=== PATIENT | female | born 1945 | race Caucasian/White ===

== ENCOUNTER → 2017-08-19 10:26 | Outpatient (CLI) | payer MEDICARE, OTHER, SELFPAY ==
--- NOTE | 2017-08-19 10:28 | STE_ITS ---
Reason For Study: Chest Pain Stress Results Protocol: Modified Gavin Protocol Maximum Predicted HR: 151 bpm Target HR: 128 bpm% Maximum Pred icted HR: 91 % DurationHeart Rate Stage (mm:ss) (bpm) BPCom ment Baseline 67 112/78 No Chest Pain Modified Gavin Protocol Stage 0 3:00 10 8 136/76No Chest Pain; Mild Dyspnea Modified Gavin Protocol Stage 1/2 3:00 11 2 164/70No Chest Pain; Mild Dyspnea Modified Gavin Protocol Stage 1 3:00 12 6 174/76No Chest Pain; Mild to Moderate Dyspnea Modified Gavin Protocol Stage 2 1:30 13 7 / No Chest Pain; Moderate Dyspnea Recovery 95 118/70 Stress Duration: 10:30 mm:ss Maximum Stress HR: 137 bpmME TS: 7 Baseline Echocardiogram Findings The estimated ejection fraction is 65 %. Stress Echo Wall motion Data Resting WMIntermediate WMStress WM Resting Wall Motion Wall Motion Stress No regional wall motion No regional wall motion abnormalities noted. abnormalities noted. EKG Data Normal intervals are noted. During stress, there were no ST or T wave changes noted to suggest ischemia. No clinical angina was noted. The patient exercised into stage 2 of the Gavin protocol. This was 92% of maximum predicted heart rate. Interpretation Summary The estimated ejection fraction is 65 %. Normal adequate modified Gavin treadmill echocardiogram. Negative for ischemia by EKG and echocardiographic criteria. No anginal symptoms noted. Rare PVC noted. Appropriate blood pressure response to exercise. Average exercise capacity for age. Final LVEF is 75%. Patient tolerated procedure well. No complications. Ordering Physician: Abel Kelley Referring Physician: Abel Kelley Performed By: Sherrie Nevarez RDCS
== END ==
PROVIDERS: Family Provider Internal Medicine; PCP Internal Medicine; Visit Provider Internal Medicine Cardiovascular Disease
DX: I25.10 Atherosclerotic heart disease of native coronary artery without angina pectoris (principal); R06.09 Other forms of dyspnea; I10 Essential (primary) hypertension; R53.83 Other fatigue
CPT/HCPCS: 93017; 93350

== ENCOUNTER → 2017-08-22 13:08 | Outpatient (CLI) | payer MEDICARE, OTHER, SELFPAY ==
--- NOTE | 2017-08-22 13:20 | RAD_ITS ---
STUDY: BARIUM ENEMA. REASON FOR EXAM: Female, 71 years old. Incomplete colonoscopy. FLUOROSCOPY TIME (if supplied): (1:00) minutes/seconds TECHNIQUE: A computer forensics analyst film was obtained. Following this, contrast was introduced retrograde through the rectum. The entire colon was opacified. COMPARISON: None. FINDINGS: Moderate to marked dextroscoliosis of the lumbar spine with multilevel disc space narrowing and degeneration. Phleboliths are seen in the pelvis. There is evidence of prior tubal ligation. Contrast was introduced retrograde through the rectum. The entire colon was opacified. There is evidence of a redundant sigmoid colon. There is no evidence of obstruction to the antegrade or retrograde flow of barium. No mass lesion is seen. RAD/Barium Enema No Air Cont IMPRESSION: Redundancy of the sigmoid colon. Electronically Signed: David Rausch MD at 14:42 EDT Tel [phone], Service support ,
== END ==
PROVIDERS: Family Provider Internal Medicine; PCP Internal Medicine; Visit Provider Internal Medicine Gastroenterology
DX: Q43.8 Other specified congenital malformations of intestine (principal)
CPT/HCPCS: 74270

== ENCOUNTER 2017-10-03 13:59 | Emergency (ER) | payer MEDICARE, OTHER, SELFPAY ==
[2017-10-03 13:59] VITALS: BP 142/99; PULSE 96; RESP 17; TEMP 37.1; O2SAT 97; BMI 27.5
--- NOTE | 2017-10-03 14:16 | ED.VISSUMM ---
- ER Visit Summary Date of Service: 10/03/17 Chief Complaint: Right flank pain History of Present Illness: The patient is a 71 F who has had pain in the right flank area for the past couple of days. Patient denies any injuries. She denies any dysuria or frequency. No hematuria. She took nothing for it at home. She denies any fevers. She says she has a history of bladder cancer 8 years ago but has no current issues. She states she has slight microscopic hematuria at times. Physical Examination: Vital signs reviewed. HEENT exam unremarkable. Heart is regular rate and rhythm without murmurs. Lungs are clear to auscultation. Abdomen is soft and nontender. Extremities reveal no edema. Skin exam normal. Neurologic exam normal. Test Results: Urinalysis negative for infection Emergency Department Course and Treatment: [] Treatment Plan: Patient has no signs of infection. This could be muscular. She will use Tylenol, ice and heat and will follow up with her PCP Disposition: Discharge Impression: Right flank pain This note was generated with [employer] dictation software. It may contain incorrect words, spelling, and punctuation that were not noted in review of the chart prior to signing ED Disposition - Plan for ED Patient: Chief Complaint: Flank Pain Referrals: Carrie Vincent MD [Primary Care Provider] -
[2017-10-03 14:35] LABS: Bacteria 0 SEEN /hpf (None Seen); Mucous, Urine 0 SEEN /hpf (<or=2+); Red Blood Cells-Urine 0 SEEN /hpf (0-5); Squamous Epithelial Cells - UA 0 SEEN /hpf (5-10); White Blood Cells 0 SEEN /hpf (0-5)
[2017-10-03 14:37] LABS: Color, Urine Straw (Yellow); Glucose, Dipstick Normal (Normal); Ketone-Dipstick Negative (Negative); Leukocyte Esterase-Dipstick Negative /ul (Negative); Nitrite-Dipstick Negative (Negative); Occult Blood-Urine 10 /ul (Negative); Protein-Dipstick Negative (Negative); Urine Bilirubin Dipstick Negative (Negative); Urine Clarity Clear (Clear); Urine Urobilinogen Normal (Normal)
--- NOTE | 2017-10-03 15:02 | ED.DEP ---
ED Disposition - Plan for ED Patient: Disposition: Home or Assisted Living Chief Complaint: Flank Pain Instructions: ED Flank Pain Uncertain Cause Referrals: Carrie Vincent MD [Primary Care Provider] -
[2017-10-03 15:16] VITALS: BP 116/70; PULSE 85; RESP 15; O2SAT 99
== END 2017-10-03 15:32 | disposition home or self-care (01) ==
PROVIDERS: Emergency Provider Emergency Medicine; Family Provider Internal Medicine; PCP Internal Medicine
DX: R10.9 Unspecified abdominal pain (principal); I25.10 Atherosclerotic heart disease of native coronary artery without angina pectoris; E78.00 Pure hypercholesterolemia, unspecified; Z85.51 Personal history of malignant neoplasm of bladder; Z79.82 Long term (current) use of aspirin; Z79.899 Other long term (current) drug therapy
CPT/HCPCS: 81001; 99282

== ENCOUNTER 2018-02-23 15:28 | Emergency (ER) | payer MEDICARE, OTHER, SELFPAY ==
[2018-02-03 13:20] VITALS: BMI 27.1
[2018-02-23 15:30] VITALS: BP 126/88; PULSE 84; RESP 15; TEMP 36.8; O2SAT 98; BMI 27.3
[2018-02-23 17:26] VITALS: BP 131/81; PULSE 79; RESP 12; O2SAT 98
[2018-02-23 17:27] LABS: Bacteria 0 SEEN /hpf (None Seen); Mucous, Urine 0 SEEN /hpf (<or=2+); Red Blood Cells-Urine 0 SEEN /hpf (0-5); Squamous Epithelial Cells - UA 0 SEEN /hpf (5-10)
[2018-02-23 17:38] LABS: Color, Urine Yellow (Yellow); Glucose, Dipstick Normal (Normal); Ketone-Dipstick Negative (Negative); Leukocyte Esterase-Dipstick Negative /ul (Negative); Nitrite-Dipstick Negative (Negative); Occult Blood-Urine 10 /ul (Negative); Protein-Dipstick Negative (Negative); Specific Gravity, Urine 1.015 (1.002-1.030); Urine Bilirubin Dipstick Negative (Negative); Urine Clarity Clear (Clear); Urine Urobilinogen Normal (Normal)
[2018-02-23 18:26] LABS: White Blood Cells 0-5 SEEN /hpf (0-5)
--- NOTE | 2018-02-23 19:02 | CT_ITS ---
STUDY: CT ABDOMEN AND PELVIS WITHOUT CONTRAST REASON FOR EXAM: Female, 72 years old. Left flank pain RADIATION DOSAGE (If Supplied By Facility): CTDIvol = ( 8.26 ) mGy, DLP = ( 398.50 ) mGycm TECHNIQUE: Transaxial images were obtained from the dome of the diaphragm to the symphysis pubis without oral contrast, and without intravenous contrast. Sagittal and coronal images were reconstructed. Individualized dose optimization techniques were used for this CT. COMPARISON: 2008 FINDINGS: There are chronic interstitial fibrotic changes of the lung bases. The visualized portions of the heart are within normal limits. Normal liver. Normal gallbladder and extrahepatic biliary system. Normal spleen. Normal pancreas. Normal bilateral adrenal glands. Normal right kidney. Normal left kidney. Normal visualized stomach. Normal small intestine. Retained stool noted throughout the colon. The appendix is visualized and appears normal. Appendix best seen on coronal recon images 57 and 58. There is diffuse atherosclerotic calcification of the abdominal aorta, without a demonstrated aneurysm. Normal inferior vena cava. Normal retroperitoneum. Normal urinary bladder. There is absence of the uterus consistent with a prior hysterectomy. Normal abdominal wall. There are diffuse degenerative changes of the visualized lumbar spine, with a dextroscoliosis, and grade 1 spondylolisthesis at L5/S1. CT/Abdomen/Pelvis without Cont IMPRESSION: No suspicious solid organ abnormality. Specifically, no obstructive uropathy noted. No CT evidence of an acute inflammatory process, normal appendix visualized Retained stool throughout the colon Degenerative bony changes Electronically Signed: Donaldo Frankel MD at 19:40 EST , Service support ,
[2018-02-23 19:25] VITALS: BP 132/57; PULSE 61; RESP 18; TEMP 36.4; O2SAT 95
--- NOTE | 2018-02-23 19:51 | ED.VISSUMM ---
- ER Visit Summary Date of Service: 02/23/18 Chief Complaint: Left flank suki History of Present Illness: The patient is a 72 F who states that for the past week she is felt like she has been punched in the left flank and notes is very sore. Particularly sensitive to touch and with deep breathing. No known trauma. History of degenerative disc disease was hypertension high cholesterol. No leg swelling or history of DVT PE. Physical Examination: Afebrile vital signs are stable Gen: Well-nourished well-developed Head: Normocephalic atraumatic Eyes: Perrl EOMI ENT: TMs clear no rhinorrhea moist mucous membranes Neck: Supple no lymphadenopathy no JVD nontender CVS: Regular rate rhythm no murmurs normal S1-S2 Respiratory: No distress clear to auscultation bilaterally there is focal tenderness along the lower 10th and 11th rib the mid axillary line on the left. No rashes in the area Abdomen: Soft nontender nondistended normal bowel sounds no masses Back: Nontender Extremity: Nontender no edema Skin: Normal color no rash Neuro: alert orientated ?3 CN II-XII intact normal strength sensation reflexes gait cerebellar Psych: Normal affect normal mood Test Results: Analysis negative. CT the flank was negative Emergency Department Course and Treatment: Patient has reproducible pain along the rib is most likely muscular skeletal in nature we will treated as such. Return if worsening or concerns Impression: 1. Left lower rib pain This note was generated with [employer] dictation software. It may contain incorrect words, spelling, and punctuation that were not noted in review of the chart prior to signing ED Disposition - Plan for ED Patient: Disposition: Home or Assisted Living Chief Complaint: Flank Pain Instructions: ED Chest Pain Atypical Unkn Cause Referrals: Crarie Vincent MD [Primary Care Provider] - As Needed
== END 2018-02-23 20:02 | disposition home or self-care (01) ==
PROVIDERS: Emergency Provider Emergency Medicine; Family Provider Internal Medicine; PCP Internal Medicine
DX: R07.81 Pleurodynia (principal); I10 Essential (primary) hypertension; E78.00 Pure hypercholesterolemia, unspecified; Z87.891 Personal history of nicotine dependence; Z79.82 Long term (current) use of aspirin; Z79.899 Other long term (current) drug therapy
CPT/HCPCS: 74176; 81001; 99282

== ENCOUNTER → 2018-04-28 17:03 | Outpatient (CLI) | payer MEDICARE, OTHER, SELFPAY ==
--- NOTE | 2018-04-28 | CYSPIN_PTH ---
PATIENT: NU ARREDONDO LOC: [facility] U#:[id number] AGE/SX: 79/F ROOM: RE04/28/[address]: Dr. Vikash Workman MD : 1945 BED: DIS: SPEC #: [id number] RECD: 04/28/18 15:45 STATUS: SONU REPraveena #: [id number] RYAN: 04/28/18 00:[address]: Vikash Workman DEPT: CYTOLOGY RECD BY: Santy Logan ENTERED: 04/29/18 12:34 SP TYPE: CYSPIN FL OTHR DR: Dr. Carrie Vincent MD Tissues: Urine Procedures: Pap Stain (control) Special Stain Group II Cytospin Fluid HEADER OPERATION: Not noted PRE-OP DIAGNOSIS: Hematuria TISSUE SUBMITTED: Urine for cytology DIAGNOSIS CYTOLOGY Urine for cytology (cytospin): Negative for malignant cells. See comment. AM:fely 04/30/18 COMMENT The specimen primarily consists of squamous epithelial cells. Clinical correlation is suggested. Case has been reviewed in consultation with Dr. Sutherland who concurs with the above diagnosis. IDC:SJ CYTOLOGY STUDY Slides are reviewed. CYTOLOGY GROSS Received is 60 ml of clear yellow fluid labeled with the patient's name and and designated per the requisition as urine. Submitted for cytology preparation. 04/29/18 TC:5 CPT: 24515
[2018-04-28 17:06] LABS: Cytology, Body Fluid / CSF SEE PATHOLOGY REPORT
== END ==
PROVIDERS: Family Provider Internal Medicine; PCP Internal Medicine; Referring Provider Urology; Visit Provider Urology
DX: R31.9 Hematuria, unspecified (principal)
CPT/HCPCS: 88108; 88313

== ENCOUNTER → 2018-08-19 | Outpatient (CLI) | payer MEDICARE, OTHER, SELFPAY ==
[2018-08-04 13:10] VITALS: BMI 27.1
--- NOTE | 2018-08-19 12:15 | STEWCON_ITS ---
Reason For Study: CAD, HTN Stress Results Protocol: Modified Gavin Protocol Maximum Predicted HR: 150 bpm Target HR: 128 bpm % Maximum Predicted HR: 84 % DurationHeart Rate Stage (mm:ss) (bpm) BP Comment Baseline 71 118/84No Chest Pain; Diluted Definity 3 ML Given Modified Gavin Protocol Stage 0 3:00 99 136/72No Chest Pain Modified Gavin Protocol Stage 1/2 3:00 110 140/68No Chest Pain Modified Gavin Protocol Stage 1 3:00 112 152/64No Chest Pain Modified Gavin Protocol Stage 2 3:00 126 164/70No Chest Pain; Mild Dyspnea; Fatigue Recovery 75 124/78No Chest Pain Stress Duration: 12:00 mm:ss Maximum Stress HR: 126 bpm METS: 7 Baseline Echocardiogram Findings The estimated ejection fraction is 65 %. Stress Echo Wall motion Data Resting WM Intermediate WM Stress WM Resting Wall Motion Wall Motion Stress No regional wall motion No regional wall motion abnormalities noted. abnormalities noted. EKG Data The baseline ECG displays normal sinus rhythm. Interpretation Summary The estimated ejection fraction is 65 %. Normal, adequate, modified Gavin treadmill echocardiogram. Negative for ischemia by EKG and echocardiographic anterior. No anginal symptoms noted. Average exercise capacity for age. No arrhythmias noted. Appropriate blood pressure response exercise. Decreased sensitivity due to poor echo windows requiring Definity agent. No complications. Test terminated due to fatigue. The study was technically difficult. Contrast injection was performed. Ordering Physician: Abel Kelley Referring Physician: Carrie Vincent Performed By: Zina Colon, OMAR, RVT
== END | disposition home or self-care (01) ==
LOC: CVS 12:14
PROVIDERS: Family Provider Internal Medicine; PCP Internal Medicine; Referring Provider Internal Medicine Cardiovascular Disease; Visit Provider Internal Medicine Cardiovascular Disease
DX: R06.09 Other forms of dyspnea (principal); I25.10 Atherosclerotic heart disease of native coronary artery without angina pectoris; I10 Essential (primary) hypertension; E78.5 Hyperlipidemia, unspecified
CPT/HCPCS: 93017; 93350; Q9957; A4216; C8928

== ENCOUNTER → 2018-08-26 | Outpatient (CLI) | payer MEDICARE, OTHER, SELFPAY ==
[2018-08-04 13:10] VITALS: BMI 27.1
--- NOTE | 2018-08-26 12:32 | ECHOCS_ITS ---
Reason For Study: Dyspnea/SOB Procedure This was a 2D Doppler, Color Flow transthoracic echocardiogram. The study was technically difficult. Contrast injection was performed. Exam performed in department. Left Ventricle Normal size and thickness. The estimated ejection fraction is 65 %. Stage 1 diastolic dysfunction. The global longitudinal strain = -22 % (normal). No regional wall motion abnormalities noted. Right Ventricle Normal size and thickness. Normal systolic function. Atria Normal left atrium. Normal right atrium. Normal atrial septum. Mitral Valve The mitral valve is structurally normal. No prolapse or stenosis seen. Trivial mitral valve insufficiency. Tricuspid Valve Normal tricuspid valve. Unable to estimate RV systolic pressure due to insufficient tricuspid regurgitant envelope. Aortic Valve Normal aortic valve. Trisinus/trileaflet aortic valve. Pulmonic Valve Normal pulmonic valve. Great Vessels Normal aortic root. Normal arch. Normal inferior vena cava. Inferior vena cava collapse with sniff. Pericardium/Pleural No pericardial effusion. Medication 22 gauge I.V. with prn adaptor inserted into right arm. Diluted definity 2ml given slow IV push to enhance endocardial definition. MMode/2D Measurements & Calculations LVIDd: 3.3 cm IVSd: 1.4 cm Ao root diam: 4.0 cm LVIDs: 2.2 cm LVPWd: 1.1 cm FS: 34.1 % LAV(MOD-bp): 32.6 ml LA A4 area: 12.6 cm2 RA A4 area: 10.0 cm2 LAV(MOD-bp) Indexed: 19.2 ml/m2 LAV(MOD-sp2): 33.0 ml LAV(MOD-sp4): 29.9 ml Time Measurements MV dec time: 0.42 sec Doppler Measurements & Calculations MV E max shayan: 57.7 cm/sec Lat Peak E' Shayan: 2.6 cm/sec Med Peak E' Shayan: 4.0 cm/sec MV A max shayan: 103.5 cm/sec E/E' lat: 21.8 E/E' med: 14.4 MV E/A: 0.56 MV V2 max: 126.2 cm/sec MV P1/2t max shayan: 82.8 cm/sec Ao V2 max: 111.1 cm/sec MV max P.4 mmHg MV P1/2t: 108.3 msec Ao max P.9 mmHg MV V2 mean: 55.1 cm/sec MV dec slope: 224.0 cm/sec2 Ao V2 mean: 76.1 cm/sec MV mean P.5 mmHg Ao mean P.6 mmHg MV V2 VTI: 34.5 cm MVA(P1/2t): 2.0 cm2 Ao V2 VTI: 24.8 cm LV V1 max: 101.9 cm/sec MR max shayan: 515.9 cm/sec PA V2 max: 87.6 cm/sec LV V1 max P.2 mmHg MR max P.5 mmHg LV V1 mean P.0 mmHg LV V1 mean: 64.9 cm/sec LV V1 VTI: 21.2 cm Interpretation Summary The estimated ejection fraction is 65 %. Stage 1 diastolic dysfunction. The global longitudinal strain = -22 % (normal). Trivial mitral valve insufficiency. Unable to estimate RV systolic pressure due to insufficient tricuspid regurgitant envelope. Compared to echo report dated 05/19/2014, no appreciable changes noted. The study was technically difficult. Contrast injection was performed. Ordering Physician: Abel Kelley Referring Physician: Abel Kelley Performed By: Rachid Ramirez RCS
== END | disposition home or self-care (01) ==
LOC: CVS 12:32
PROVIDERS: Family Provider Internal Medicine; PCP Internal Medicine; Referring Provider Internal Medicine Cardiovascular Disease; Visit Provider Internal Medicine Cardiovascular Disease
DX: R06.09 Other forms of dyspnea (principal); I25.10 Atherosclerotic heart disease of native coronary artery without angina pectoris; I10 Essential (primary) hypertension
CPT/HCPCS: 93306; Q9957; A4216; C8929

== ENCOUNTER → 2019-06-21 | Outpatient (CLI) | payer MEDICARE, OTHER, SELFPAY ==
[2019-02-08 14:45] VITALS: BMI 26.5
--- NOTE | 2019-06-21 | CYSPIN_PTH ---
PATIENT: NU ARREDONDO LOC: [facility] U#:[id number] AGE/SX: 73/F ROOM: RE06/21/[address]: Dr. Vikash Workman MD : 1945 BED: DIS: 06/21/2019 SPEC #: [id number] RECD: 06/22/19 10:02 STATUS: SONU REPraveena #: [id number] RYAN: 06/21/19 00:[address]: Vikash Workman DEPT: CYTOLOGY RECD BY: Mert Han ENTERED: 06/22/19 10:03 SP TYPE: CYSPIN FL OTHR DR: Dr. Carrie Vincent MD Tissues: Urine Procedures: Pap Stain (control) Special Stain Group II Cytospin Fluid HEADER OPERATION: Not noted PRE-OP DIAGNOSIS: Malignant neoplasm of lateral wall of bladder C67.2 TISSUE SUBMITTED: Urine for cytology DIAGNOSIS CYTOLOGY Urine for cytology (cytospin): Mildly atypical urothelial cells noted. See comment. SJ:fely 06/23/19 COMMENT Correlation with clinical findings and appropriate follow up are necessary. 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 Case has been reviewed in consultation with Dr. Ramirez who concurs with the above diagnosis. IDC:AM CYTOLOGY STUDY Slides are reviewed. CYTOLOGY GROSS Received is 35 ml of yellow hazy fluid labeled with the patient's name and and designated per the requisition as urine. Submitted for cytology preparation. / fely 06/22/19 TC:5 CPT: 07895
[2019-06-21 17:27] LABS: Cytology, Body Fluid / CSF SEE PATHOLOGY REPORT
== END | disposition home or self-care (01) ==
LOC: LABSPEC 16:51
PROVIDERS: PCP Internal Medicine; Referring Provider Urology; Visit Provider Urology
DX: C67.2 Malignant neoplasm of lateral wall of bladder (principal)
CPT/HCPCS: 88108; 88313

== ENCOUNTER → 2019-06-24 | Outpatient (CLI) | payer MEDICARE, OTHER, SELFPAY ==
[2019-06-24 11:57] VITALS: BMI 27.8
== END | disposition home or self-care (01) ==
PROVIDERS: PCP Internal Medicine; Referring Provider Urology; Visit Provider Urology
DX: C67.2 Malignant neoplasm of lateral wall of bladder (principal)

== ENCOUNTER → 2019-07-19 | Outpatient (CLI) | payer MEDICARE, OTHER, SELFPAY ==
[2019-06-24 11:57] VITALS: BMI 27.8
--- NOTE | 2019-07-19 12:20 | STEWCON_ITS ---
Reason For Study: CHEST PAIN Stress Results Protocol: Gavin Protocol WITH DEFINITY Maximum Predicted HR: 149 bpm Target HR: 127 bpm % Maximum Predicted HR: 85 % DurationHeart Rate Stage (mm:ss) (bpm) BP Comment BASELINE 80 132/80 STAGE 1 3:00 110 148/824CC GIVEN PER PROTOCOL STAGE 2 3:00 127 158/70 RECOVERY 89 142/84 Stress Duration: 6:00 mm:ss Maximum Stress HR: 127 bpm Baseline Echocardiogram Findings The estimated ejection fraction is 65 %. Stress Echo Wall motion Data Resting WM Intermediate WM Stress WM Resting Wall Motion Wall Motion Stress No regional wall motion No regional wall motion abnormalities noted. abnormalities noted. EKG Data The baseline ECG displays normal sinus rhythm. The patient exercised according to the regular Gavin protocol for a total duration of 6:01. The maximum heart rate attained was 136 beats per minute. This was 91% of maximum predicted heart rate. The patient exercised into stage 3 of the Gavin protocol. During stress, there were no ST or T wave changes noted to suggest ischemia. No clinical angina was noted. No arrhythmias noted. Interpretation Summary The estimated ejection fraction is 65 %. Normal, adequate, treadmill echocardiogram. Negative for ischemia by EKG and echocardiographic criteria. No anginal symptoms noted. No arrhythmias noted. Test terminated due to attainment target heart rate and dyspnea, no angina noted. Final LVEF is 75%. Decreased sensitivity due to poor echo windows requiring Definity agent. No complications. The study was technically difficult. Contrast injection was performed. Ordering Physician: Abel Kelley Referring Physician: Abel Kelley Performed By: Nicci Hoover RDCS, RVT
== END | disposition home or self-care (01) ==
LOC: CVS 12:20
PROVIDERS: PCP Internal Medicine; Referring Provider Internal Medicine Cardiovascular Disease; Visit Provider Internal Medicine Cardiovascular Disease
DX: R07.9 Chest pain, unspecified (principal); I25.10 Atherosclerotic heart disease of native coronary artery without angina pectoris; I10 Essential (primary) hypertension; E78.5 Hyperlipidemia, unspecified
CPT/HCPCS: 93017; 93350; Q9957; A4216; C8928

== ENCOUNTER → 2019-09-14 | Outpatient (CLI) | payer MEDICARE, OTHER, SELFPAY ==
[2019-06-24 11:57] VITALS: BMI 27.8
--- NOTE | 2019-09-14 | CYSPIN_PTH ---
PATIENT: NU ARREDONDO LOC: [facility] U#:[id number] AGE/SX: 73/F ROOM: RE09/14/[address]: Dr. Vikash Workman MD : 1945 BED: DIS: 09/14/2019 SPEC #: [id number] RECD: 09/15/19 12:02 STATUS: SONU IDALIA #: [id number] RYAN: 09/14/19 00:[address]: Vikash Workman DEPT: CYTOLOGY RECD BY: Mert Han ENTERED: 09/15/19 12:02 SP TYPE: CYSPIN FL OTHR DR: Dr. Carrie Vincent MD Tissues: Urine Procedures: Pap Stain (control) Special Stain Group II Cytospin Fluid HEADER OPERATION: Not noted PRE-OP DIAGNOSIS: Malignant neoplasm of bladder TISSUE SUBMITTED: Urine for cytology DIAGNOSIS CYTOLOGY Urine for cytology (cytospin): Negative for malignant cells. See comment. SJ:fely 09/16/19 COMMENT Clinical correlation and appropriate follow up are necessary. Please make reference to previous specimen ([id number]) urine for cytology with diagnosis of mildly atypical urothelial cells noted. CYTOLOGY STUDY Slides are reviewed. CYTOLOGY GROSS Received is 50 ml of yellow cloudy fluid labeled with the patient's name and and designated per the requisition as urine. Submitted for cytology preparation. / fely 09/15/19 TC:5 CPT: 76852
[2019-09-14 13:27] LABS: Cytology, Body Fluid / CSF SEE PATHOLOGY REPORT
== END | disposition home or self-care (01) ==
LOC: LAB 13:25
PROVIDERS: PCP Internal Medicine; Referring Provider Urology; Visit Provider Urology
DX: C67.2 Malignant neoplasm of lateral wall of bladder (principal)
CPT/HCPCS: 88108; 88313

== ENCOUNTER → 2020-01-31 12:44 | Outpatient (CLI) | payer MEDICARE, OTHER, SELFPAY ==
[2020-01-24 12:57] VITALS: BMI 27.8
--- NOTE | 2020-01-31 12:45 | CDU_ITS ---
Reason For Study: Right carotid bruit Rt. Velocities/BP Lt. Velocities/BP Prox CCA 95.6/17.3 cm/sec. Prox CCA 104.7/22.5 cm/sec. Mid CCA 76/18.6 cm/sec. Mid CCA 117.4/24.3 cm/sec. Dist CCA 63/17.3 cm/sec. Dist CCA 70.4/16.3 cm/sec. Prox ICA 65.6/14.7 cm/sec. Prox ICA 88.8/22.5 cm/sec. Mid ICA 66.9/23.9 cm/sec. Mid ICA 79/23.7 cm/sec. Dist ICA 101/42.6 cm/sec. Dist ICA 101.1/22.5 cm/sec. Rt. ICA/CCA = 1.3. Lt. ICA/CCA = 1.0. Prox ECA 102.1/9.5 cm/sec. Prox ECA 91.3/11.4 cm/sec. Rt. Vert. 53.1/14.6 cm/sec. Lt. Vert. 35.1/7.3 cm/sec. Right Extracranial There is homogeneous, smooth atherosclerotic plaque noted in the right common carotid artery. There is heterogeneous, irregular atherosclerotic plaque noted in the right internal carotid artery. There is intimal thickening but no significant atherosclerotic plaque noted in the right external carotid artery. Antegrade flow is noted in the right vertebral artery. Structure noted in the right thyroid measuring approximently 1.36 x 1.15 x 1.73 cm. Left Extracranial There is homogeneous, smooth atherosclerotic plaque noted in the left common carotid artery. There is heterogeneous, irregular atherosclerotic plaque noted in the left internal carotid artery. There is intimal thickening but no significant atherosclerotic plaque noted in the left external carotid artery. Antegrade flow is noted in the left vertebral artery. Procedure Carotid Duplex 48306. This is a Carotid Duplex examination using B-mode, color flow and specral Doppler. Exam performed in department. Interpretation Summary Irregular calcific plaque of the proximal right internal carotid artery with less than 50% stenosis Less than 50% stenosis right external carotid Solid cystic right thyroid nodule 1.36 x 1.15 x 1.73 cm Irregular calcific plaque at the proximal left internal carotid with less than 50% stenosis Less than 50% stenosis left external carotid Patent and antegrade vertebrals bilaterally Ordering Physician: Lois Cloud Referring Physician: Carrie Vincent M.D. Performed By: Jojo Pearce RVT
== END ==
PROVIDERS: PCP Internal Medicine; Referring Provider Physician Assistant Medical; Visit Provider Physician Assistant Medical
DX: R09.89 Other specified symptoms and signs involving the circulatory and respiratory systems (principal)
CPT/HCPCS: 93880

== ENCOUNTER → 2020-03-10 | Outpatient (CLI) | payer MEDICARE, OTHER, SELFPAY ==
[2020-01-24 12:57] VITALS: BMI 27.8
--- NOTE | 2020-03-10 14:40 | FLU_PTH ---
PATIENT: UN ARREDONDO LOC: [facility] U#:[id number] AGE/SX: 74/F ROOM: RE03/10/[address]: Dr. Kamila Navarro MD : 1945 BED: DIS: 03/10/2020 SPEC #: [id number] RECD: 03/10/20 16:53 STATUS: SONU REQ #: [id number] RYAN: 03/10/20 14:[address]: Kamila Navarro DEPT: CYTOLOGY RECD BY: Unique Mahoney ENTERED: 03/13/20 09:58 SP TYPE: Fluid OTHR DR: Dr. Carrie Vincent MD Tissues: A - Thyroid gland, NOS B - Thyroid gland, NOS Procedures: Special Stain Group II Surgery Specimen Level IV Cytospin Fluid HEADER OPERATION: Ultrasound-guided fine needle aspiration of right thyroid PRE-OP DIAGNOSIS: Thyroid nodules TISSUE SUBMITTED: A - Right thyroid fluid for cytology, B - Right thyroid slides x8 DIAGNOSIS CYTOLOGY A. Fine needle aspiration, right thyroid nodule (cytospin and cell block): Adequate for evaluation. Negative, consistent with benign follicular nodule with cystic change. B. Fine needle aspiration, right thyroid nodule (smears): Adequate for evaluation. Negative, consistent with benign follicular/colloid nodule with cystic change. AM:fely 03/14/2020 CYTOLOGY STUDY Slides are reviewed. CYTOLOGY GROSS A - Received is 30 ml of dark brown cloudy fluid labeled with the patient's name and and designated per the requisition as right thyroid. Submitted for cytology preparation including cell block. B - Received are eight smears labeled with the patient's name and designated per the requisition as right thyroid. Submitted for staining. / fely 03/13/2020 TC:5 CPT: 28102, 35750, 66339
== END | disposition home or self-care (01) ==
LOC: LABSPEC 03-13 08:29
PROVIDERS: PCP Internal Medicine; Referring Provider Surgery; Visit Provider Surgery
DX: E04.2 Nontoxic multinodular goiter (principal)
CPT/HCPCS: 88108; 88305; 88313

== ENCOUNTER → 2020-07-10 | Outpatient (CLI) | payer MEDICARE, OTHER, SELFPAY ==
[2020-07-03 14:50] VITALS: BMI 27.8
--- NOTE | 2020-07-10 14:22 | CYSPIN_PTH ---
PATIENT: NU ARREDONDO LOC: [facility] U#:[id number] AGE/SX: 74/F ROOM: RE07/10/[address]: Dr. Vikash Workman MD : 1945 BED: DIS: 07/10/2020 SPEC #: [id number] RECD: 07/11/20 08:16 STATUS: SONU REPraveena #: [id number] RYAN: 07/10/20 14:[address]: Vikash Workman DEPT: CYTOLOGY RECD BY: Unique Mahoney ENTERED: 07/11/20 08:17 SP TYPE: CYSPIN FL OTHR DR: Dr. Carrie Vincent MD Tissues: Urine Procedures: Pap Stain (control) Special Stain Group II Cytospin Fluid HEADER OPERATION: Not noted PRE-OP DIAGNOSIS: Malignant neoplasm of bladder TISSUE SUBMITTED: Urine for cytology DIAGNOSIS CYTOLOGY Urine for cytology (cytospin): Negative for malignant cells. See comment. AM:fely 07/12/2020 COMMENT The specimen primarily contains squamous epithelial cells. Clinical correlation is suggested. CYTOLOGY STUDY Slides are reviewed. CYTOLOGY GROSS Received is 40 ml of dark yellow clear fluid labeled with the patient's name and and designated per the requisition as urine. Submitted for cytology preparation. / fely 07/11/2020 TC:5 CPT: 73074
[2020-07-10 17:35] LABS: Cytology, Body Fluid / CSF SEE PATHOLOGY REPORT
== END | disposition home or self-care (01) ==
LOC: LABSPEC 17:04
PROVIDERS: PCP Internal Medicine; Referring Provider Urology; Visit Provider Urology
DX: C67.9 Malignant neoplasm of bladder, unspecified (principal)
CPT/HCPCS: 88108; 88313

== ENCOUNTER 2021-06-12 12:51 | Emergency (ER) | payer MEDICARE, OTHER, SELFPAY ==
[2021-06-12 12:53] VITALS: BP 148/96; PULSE 90; RESP 18; TEMP 36.7; O2SAT 96; BMI 26.7
[2021-06-12 12:58] VITALS: BP 140/93; PULSE 80; RESP 14; TEMP 37.3; O2SAT 96
--- NOTE | 2021-06-12 13:08 | CT_ITS ---
STUDY: CT ABDOMEN AND PELVIS WITH CONTRAST REASON FOR EXAM: Female, 75 years old. abdominal pain LLQ RADIATION DOSAGE (If Supplied By Facility): CTDIvol = ( 15.22 ) mGy, DLP = ( 801.22 ) mGycm TECHNIQUE: Transaxial images were obtained from the dome of the diaphragm to the symphysis pubis without oral contrast. IV 100mL Isovue-300 was administered. Sagittal and coronal images were reconstructed. Individualized dose optimization techniques were used for this CT. COMPARISON: 02/23/2018 FINDINGS: The visualized lung bases are unremarkable. The visualized portions of the heart are within normal limits. Simple subcentimeter cysts of the liver. No required imaging follow-up needed given high likelihood of benign nature. Normal gallbladder and extrahepatic biliary system. Normal spleen. Normal pancreas. Normal bilateral adrenal glands. Normal right kidney. Normal left kidney. Normal visualized stomach. Normal small intestine. Long segment wall thickening of the splenic flexure, descending colon, sigmoid colon and rectum with pericolonic stranding most conspicuous in the descending colon segments. No pericolonic abscess. There is non-visualization of the appendix. There is diffuse atherosclerotic calcification of the abdominal aorta, without a demonstrated aneurysm. Normal inferior vena cava. Normal retroperitoneum. Normal urinary bladder. Normal abdominal wall. There are diffuse degenerative changes of the visualized lumbar spine. Grade 1 spondylolisthesis L5-S1 due to bilateral L5 spondylolysis. CT/Abdomen/Pelvis W IV Cont ONLY IMPRESSION: Long segment (left) colon wall thickening with pericolonic stranding suggesting colitis including infectious, inflammatory and ischemic causes. Electronically Signed: Geovani Guerra MD ([place]) at 14:53 EDT ,
--- NOTE | 2021-06-12 13:10 | EDS_ITS ---
HPI HPI - GI History of Present Illness Chief Complaint: Abd Pain Narrative Narrative: Patient who denies significant past medical history except for remote bladder carcinoma presents with rectal bleeding and left lower quadrant abdominal pain. She states last evening she had the feelings that she had to have a bowel movement. She was mildly constipated. She had left lower quadrant abdominal pain. She denies any fevers or chills. No nausea or vomiting. She had 4-5 bowel movements yesterday evening then lay down. This morning at 130, she got up to use the restroom, and thought maybe she had orange-colored stool. Her left lower quadrant abdominal pain has improved. She does not take blood thinners. She became concerned because she had a bowel movement earlier this morning where it was more liquid stool with pink mucus. She relates history that she has a lot of hemorrhoids and thought maybe the blood was from this, she presents more for the rectal bleeding that is reported. She denies any chest pain or lightheadedness, or shortness of breath. She relates history that she had colonoscopy performed proximately [address] Duggan, and he was unable to perform the last 6 inches of visualization of her colon. However, since then she has had problems having bowel movements. [facility] Medical History Atherosclerosis of coronary artery of [place] heart without angina pectoris Bladder cancer Carotid arterial disease Carotid artery bruit Carotid artery stenosis without cerebral infarction Chest pain DDD (degenerative disc disease), lumbar GERD (gastroesophageal reflux disease) Hyperlipidemia Hypertension IBS (irritable bowel syndrome) Home Medications acetaminophen-codeine 1 tab PO PRN PRN 05/24/14 [History Last Taken Unknown] aspirin 81 mg PO DAILY@0800 05/24/14 [History Last Taken 05/25/14] hydrochlorothiazide 12.5 mg PO DAILY 05/24/14 [History Last Taken Unknown] oxybutynin chloride 5 mg PO PRN PRN 05/24/14 [History Last Taken Unknown] esomeprazole magnesium 20 mg capsule,delayed release 20 mg PO DAILY 02/03/18 [History Last Taken Unknown] simvastatin 40 mg tablet 40 mg PO QPM #90 tab 06/30/18 [Rx Last Taken Unknown] vit C,E,zinc,copper-unjtw2s 250 mg-lutein 5 mg-zeaxanthin 1 mg capsule 1 cap PO DAILY 08/04/18 [History Last Taken Unknown] amlodipine 5 mg tablet 5 mg PO QHS #90 tab 07/03/20 [Rx Last Taken Unknown] glucosamine-chondroitin 250 mg-200 mg tablet 1 tab PO DAILY tab 07/03/20 [History Last Taken Unknown] imipramine HCl 25 mg tablet 25 mg PO PRN PRN tab 07/03/20 [History Last Taken Unknown] ciprofloxacin HCl [Cipro] 500 mg PO BID #20 tab 06/12/21 [Rx Last Taken Unknown] metronidazole 500 mg PO BID 10 Days #20 tab 06/12/21 [Rx Last Taken Unknown] Allergy/AdvReac Type Severity Reaction Status Date / Time morphine Allergy Unknown Verified 06/12/21 12:55 Family History Father CAD (coronary artery disease) CABG Mother Cancer of kidney Cancer of lung Surgical History H/O arthroscopic knee surgery History of left heart catheterization (05/25/14) History of partial hysterectomy Status post excision of Rojas's neuroma Social History Smoking Status: Former smoker ROS ROS ED ROS Narrative Constitutional: No fever, no chills. HEENT: No sore throat. No neck pain. No loss of vision. No rhinorrhea. Cardiovascular: No chest pain. No palpitations. No pedal edema. Respiratory: No cough, no shortness of breath. Abdominal: Left lower quadrant abdominal pain. No nausea. No vomiting. [place]- colored mucousy diarrhea. Genitourinary: No dysuria. No hematuria. Musculoskeletal: No myalgias. No arthralgias. Neurologic: No headaches. No dizziness. No lightheadedness. Skin: No rash. No change in color. Psychiatric: No depression. No anxiety. EXAM Physical Exam Narrative Exam Narrative: Afebrile. Vital signs noted. HEENT: Normocephalic. Atraumatic. PERRL, EOMI. Neck soft and supple. No point tenderness or step off. Cardiovascular: Regular rate and rhythm. No murmurs, rubs, or gallops appreciated. Respiratory: No tachypnea. Lungs clear to auscultation bilaterally. Gastrointestinal: Abdomen soft, nontender, with normoactive bowel sounds. No rebound or guarding. Neurological: Awake. Alert. Nonfocal, nonlateralizing. Skin: No rash. Normal color. No pallor. Musculoskeletal: No pedal edema. Full range of motion extremities. Const Vital Signs: 06/12/21 12:53 06/12/21 12:58 06/12/21 14:45 Temperature 98.1 F 99.1 F 98.2 F Temperature Source Temporal Temporal Temporal Pulse Rate 90 80 76 Respiratory Rate 18 14 20 H Blood Pressure 148/96 H 140/93 H 160/77 H Blood Pressure Mean 113 108 104 Pulse Ox 96 96 99 Oxygen Delivery Method Room Air Room Air Room Air 06/12/21 14:52 Temperature 98.2 F Temperature Source Temporal Pulse Rate 76 Respiratory Rate 20 H Blood Pressure 160/77 H Blood Pressure Mean 104 Pulse Ox 99 Oxygen Delivery Method Room Air MDM MDM MDM Narrative Medical decision making narrative: Patient states she does not take blood thinners. She states that in order for rectal examination to be performed that she needs something for anxiety. She will be administered Ativan 0.5 mg intravenously. Comprehensive work-up was pursued including CBC, CMP, and CT imaging of her abdomen and pelvis. Her CBC shows normal white count of 10.3, hemoglobin normal at 12.7. Platelet count also normal at 285. CMP is grossly unremarkable. CT of the abdomen and pelvis shows long segment left colonic wall thickening with pericolonic stranding suggesting colitis including infectious, inflammatory and ischemic causes. At this point in time, upon repeat examination, her abdomen remains soft. I did perform a rectal examination that was chaperoned which did show a small amount of bright red blood with normal colored stool. I do think this may be from an internal hemorrhoid versus a stable rectal bleed from her colitis. She was given her first doses of Flagyl and ciprofloxacin here in the emergency department and prescriptions written for the next 10 days. She is to follow-up with either her primary care physician or with gastroenterology to whom she was referred in the next 3 days. Return instructions were reviewed. As she does not have a fever high white count, and her abdomen remains soft and her pain is controlled without medication, I feel she can be discharged safely. I do not feel that she meets any observation or admission criteria at this time. Return instructions were reviewed. Disposition is discharged home in stable condition. Lab Data Attestation: I reviewed the patient's lab results. Labs: Laboratory Results - last 24 hr 06/12/21 06/12/21 13:40 13:40 WBC 10.3 RBC 3.78 L Hgb 12.7 Hct 36.5 L MCV 96.6 MCH 33.6 H MCHC 34.8 RDW Std Deviation 46.3 H RDW Coeff of Marilyn 13.1 Plt Count 285 MPV 11.9 Immature Gran % (Auto) 1.000 H Neut % (Auto) 71.5 H Lymph % (Auto) 19.3 [place] % (Auto) 6.6 Eos % (Auto) 1.0 Baso % (Auto) 0.6 Absolute Neuts (auto) 7.4 Absolute Lymphs (auto) 1.99 Nucleated RBC % 0 Sodium 139 Potassium 3.8 Chloride 105 Carbon Dioxide 29.0 Anion Gap 5 BUN 15 Creatinine 0.90 Estim Creat Clear Calc 46.05 Est GFR (MDRD) Af Amer 79 Est GFR (MDRD) Non-Af 65 BUN/Creatinine Ratio 16.6 Glucose 97 Calcium 9.1 Total Bilirubin 0.70 AST 15 ALT 14 Alkaline Phosphatase 101 Total Protein 7.1 Albumin 3.9 Globulin 3.2 Albumin/Globulin Ratio 1.2 Radiography Diagnostic Testing: Clinical Impression(s) from Imaging Studies Abdomen/Pelvis CT 06/12/21 13:08 IMPRESSION: Long segment (left) colon wall thickening with pericolonic stranding suggesting colitis including infectious, inflammatory and ischemic causes. Electronically Signed: Geovani Guerra MD (Brooks) at 14:53 EDT Reading Location ID and State: [facility] / [place] , Service support , Discharge Plan Triage Chief Complaint: Abd Pain ED Provider: Jasiel Deshpande Dx/Rx/DC Orders Clinical Impression: Colitis, Rectal bleeding, Abdominal pain Instructions: ED Understanding Colitis, ED Lower GI Bleeding (Stable) Prescriptions: New ciprofloxacin HCl [Cipro] 500 mg tablet 500 mg PO BID Qty: 20 RF: 0 metronidazole 500 mg tablet 500 mg PO BID 10 Days Qty: 20 RF: 0 No Action esomeprazole magnesium [Nexium] 20 mg capsule,delayed release(DR/EC) 20 mg PO DAILY RF: 0 Ocuvite Adult 50 Plus 250-5-1 mg capsule 1 cap PO DAILY RF: 0 imipramine HCl 25 mg tablet 25 mg PO PRN PRN (Reason: Abdominal Discomfort) RF: 0 glucosamine-chondroitin [Osteo Bi-Flex] 250-200 mg tablet 1 tab PO DAILY RF: 0 amlodipine 5 mg tablet 5 mg PO QHS Qty: 90 RF: 4 hydrochlorothiazide 12.5 MG capsule 12.5 mg PO DAILY RF: 0 oxybutynin chloride 5 MG tablet 5 mg PO PRN PRN (Reason: Bladder Spasm) RF: 0 aspirin 81 MG tablet,chewable 81 mg PO DAILY@0800 RF: 0 acetaminophen-codeine 1 TABLET tablet 1 tab PO PRN PRN (Reason: Cough) RF: 0 simvastatin 40 mg tablet 40 mg PO QPM Qty: 90 RF: 3 Primary Care Provider: Carrie Vincent Referrals: Carrie Vincent MD [Primary Care Provider] - 06/15/21 FriendJose G DO [STAFF PHYSICIAN] - 3-5 Days Activity Restrictions/Additional Instructions: You have been diagnosed with colitis. Take the antibiotics as directed. Do not drink alcohol while taking Flagyl/metronidazole. You will get sick and vomit. Your rectal bleeding is stable. Return with new or worsening symptoms, fever, uncontrolled pain. Disposition Disposition: Home, Self Care
[2021-06-12 13:48] LABS: Absolute Lymphocyte Count 1.99 X10^3/uL (0.83-4.51); Absolute Neutrophil Count 7.4 X10^3/uL (2.0-7.7); Basophil# 0.06 X10^3/uL; Basophil% 0.6 % (0-1); Hematocrit 36.5 % (37-47); Hemoglobin 12.7 g/dL (12.0-15.0); Lymphocyte # 1.99 X10^3/ul (0.83-4.51); Lymphocyte % 19.3 % (19-41); Mean Corp Hgb Conc 34.8 g/dL (32-36); Mean Corpuscular Hgb 33.6 pg (27.0-32.0); Mean Corpuscular Volume 96.6 fL (81-99); Mean Platelet Vol. 11.9 fl (6.2-12.0); Monocyte# 0.68 X10^3/uL; Monocyte% 6.6 % (0-10); NRBC Flagged by Analyzer 0 % (0-5); Neutrophil # 7.38 X10^3/uL (2.7-7.7); Neutrophil % 71.5 % (47-70); Platelet Count 285 K/mm3 (150-450); RBC Distribution Width CV 13.1 % (11.6-14.6); RBC Distribution Width SD 46.3 fl (35.1-43.9); Red Blood Count 3.78 M/mm3 (4.2-5.4); White Blood Count 10.3 K/mm3 (4.4-11.0)
[2021-06-12 14:08] LABS: ALB/GLOB Ratio 1.2 RATIO (0.9-2.4); AST(SGOT) 15 U/L (15-37); Alanine Aminotransfer ALT/SGPT 14 U/L (13-56); Albumin, Serum 3.9 g/dL (3.2-5.0); Alkaline Phosphatase 101 U/L (45-117); Anion Gap 5 (5-15); BUN 15 mg/dL (7-18); BUN/Creat Ratio 16.6 RATIO (10-20); Calcium,Total 9.1 mg/dL (8.5-10.1); Chloride 105 mmol/L (98-107); EST Glomerular Filtration Rate 65 mL/min (>60); Est Glom Filt Rate - Afr Amer 79 mL/min (>60); Estimated Creatinine Clearance 46.05 ml/min; Globulin 3.2 g/dL (2.2-4.2); Glucose 97 mg/dL (74-106); Potassium 3.8 mmol/L (3.5-5.1); Protein, Total 7.1 g/dL (6.4-8.2); Sodium Level 139 mmol/L (136-145)
[2021-06-12] MEDS: LORazepam 2 MG/ML Syringe 0.5 MG IV (14:17)
[2021-06-12] MEDS: 0.9% Normal Saline 1,000 ML 1000 ML IV (14:18)
[2021-06-12 14:45] VITALS: BP 160/77; PULSE 76; RESP 20; TEMP 36.8; O2SAT 99
[2021-06-12 14:52] VITALS: BP 160/77; PULSE 76; RESP 20; TEMP 36.8; O2SAT 99
[2021-06-12 15:11] VITALS: BP 161/87; PULSE 72; RESP 14; TEMP 36.9; O2SAT 97
[2021-06-12] MEDS: Ciprofloxacin 500 MG Tablet PO (15:26)
[2021-06-12] MEDS: metroNIDAZOLE 500 MG Tablet PO (15:27)
[2021-06-12 15:28] VITALS: BP 155/93; PULSE 76; O2SAT 97
--- NOTE | 2021-06-14 15:30 | CASEMGMT ---
Addendum entered by Rolo Roblero 06/14/21 16:04: VM received from pt, stating she called to schedule an appt but they do not have anything available until June 26. ELIZABETH CA placed call to Dr Vincent's office and spoke w/a nurse. She was updated on pt's ED visit and that she was advised to be seen w/in 3 days. Nurse states an opening is now available @ 10:40 tomorrow AM w/Dr Vincent. Appt scheduled for pt at this time. Call placed back to pt and she was made aware of appt tomorrow. She states that appt time works well for her and she voices much appreciation. Original Note: ELIZABETH CA ED Visit f/u call: ED visit: 06/12/21 Complaint: Abdominal pain Call to pt. She states she is still feeling a little weak, she is still having a little bit of blood and mucous rectally, and still some abd cramping, although that has improved some. 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 She called Dr Bates office but they do not have opening for 2 months. She scheduled the appt for in 2 months. She did not call PCP's office yet to schedule an appt. ELIZABETH CA recommended she contact PCP's office for an appt, as ED MD wanted her seen w/in 3 days. She states she will do so now. Leobardo HILL RN, CM
== END 2021-06-12 15:36 | disposition home or self-care (01) ==
PROVIDERS: Emergency Provider Emergency Medicine; PCP Internal Medicine; Visit Provider Emergency Medicine
DX: K52.9 Noninfective gastroenteritis and colitis, unspecified (principal); K62.5 Hemorrhage of anus and rectum; Z87.891 Personal history of nicotine dependence; I25.10 Atherosclerotic heart disease of native coronary artery without angina pectoris; I10 Essential (primary) hypertension; E78.5 Hyperlipidemia, unspecified; Z79.899 Other long term (current) drug therapy; Z79.82 Long term (current) use of aspirin; K58.9 Irritable bowel syndrome, unspecified
CPT/HCPCS: 74177; 80053; 82274; 85025; 99284; J7030; Q9967; A4216

== ENCOUNTER → 2021-07-30 | Outpatient (CLI) | payer MEDICARE, OTHER, SELFPAY ==
[2021-07-30 10:49] LABS: Erythrocyte Sedimentation Rate 10 mm/hr (0-30)
[2021-07-30 10:53] LABS: Absolute Lymphocyte Count 2.16 X10^3/uL (0.83-4.51); Absolute Neutrophil Count 1.9 X10^3/uL (2.0-7.7); Basophil# 0.04 X10^3/uL; Basophil% 0.9 % (0-1); Eosinophil# 0.13 X10^3/uL; Eosinophils% 2.8 % (0-5); Hematocrit 35.3 % (37-47); Lymphocyte # 2.16 X10^3/ul (0.83-4.51); Lymphocyte % 46.5 % (19-41); Mean Corpuscular Hgb 33.7 pg (27.0-32.0); Mean Corpuscular Volume 99.2 fL (81-99); Mean Platelet Vol. 11.4 fl (6.2-12.0); Monocyte# 0.39 X10^3/uL; Monocyte% 8.4 % (0-10); NRBC Flagged by Analyzer 0 % (0-5); Neutrophil % 40.8 % (47-70); Platelet Count 267 K/mm3 (150-450); RBC Distribution Width CV 13.9 % (11.6-14.6); RBC Distribution Width SD 50.1 fl (35.1-43.9); Red Blood Count 3.56 M/mm3 (4.2-5.4); White Blood Count 4.7 K/mm3 (4.4-11.0)
[2021-07-30 11:29] LABS: ALB/GLOB Ratio 1.1 RATIO (0.9-2.4); AST(SGOT) 17 U/L (15-37); Alanine Aminotransfer ALT/SGPT 10 U/L (13-56); Alkaline Phosphatase 85 U/L (45-117); Anion Gap 5 (5-15); BUN 13 mg/dL (7-18); BUN/Creat Ratio 15.5 RATIO (10-20); CRP < 2.90 mg/L (0.0-3.0); Calcium,Total 8.9 mg/dL (8.5-10.1); Chloride 106 mmol/L (98-107); Creatinine, Serum 0.84 mg/dL (0.55-1.02); EST Glomerular Filtration Rate 71 mL/min (>60); Est Glom Filt Rate - Afr Amer 86 mL/min (>60); Globulin 3.5 g/dL (2.2-4.2); Glucose 98 mg/dL (74-106); Potassium 3.5 mmol/L (3.5-5.1); Protein, Total 7.5 g/dL (6.4-8.2); Sodium Level 139 mmol/L (136-145)
[2021-07-31 12:08] LABS: Anti-Centromere B Ab <0.2 AI (0.0-0.9); Anti-Chromatin <0.2 AI (0.0-0.9); Anti-Jo <0.2 AI (0.0-0.9); Anti-Scleroderma-70 AB <0.2 AI (0.0-0.9); RNP Ab <0.2 AI (0.0-0.9); SJOGREN'S Anti-SS-A test < 0.2 AI (0.0-0.9); SJOGREN'S Anti-SS-B test < 0.2 AI (0.0-0.9); Smith Ab <0.2 AI (0.0-0.9)
[2021-07-31 15:55] LABS: Anti-dsDNA Ab <1 IU/mL (0-9)
[2021-07-31 16:08] LABS: Endomysial Antibody IgA Negative (Negative)
[2021-08-02 17:36] LABS: Immunoglobulin A 149 mg/dL (64-422); t-Transglutaminase IgA <2 U/mL (0-3)
== END | disposition home or self-care (01) ==
LOC: LAB 09:56
PROVIDERS: PCP Internal Medicine; Visit Provider Nurse Practitioner Adult Health
DX: K52.9 Noninfective gastroenteritis and colitis, unspecified (principal); K58.9 Irritable bowel syndrome, unspecified
CPT/HCPCS: 36415; 80053; 82784; 83516; 85025; 85652; 86140; 86225; 86235; 86255

== ENCOUNTER → 2021-08-03 | Outpatient (CLI) | payer MEDICARE, OTHER, SELFPAY ==
[2021-08-08 12:08] LABS: Calprotectin, Stool 20 ug/g (0-120)
== END | disposition home or self-care (01) ==
PROVIDERS: PCP Internal Medicine; Referring Provider Nurse Practitioner Adult Health; Visit Provider Nurse Practitioner Adult Health
DX: K58.9 Irritable bowel syndrome, unspecified (principal)
CPT/HCPCS: 83630; 83993

== ENCOUNTER → 2021-08-13 | Outpatient (CLI) | payer MEDICARE, OTHER, SELFPAY ==
--- NOTE | 2021-08-13 | CYSPIN_PTH ---
PATIENT: NU ARREDONDO LOC: [facility] U#:[id number] AGE/SX: 75/F ROOM: RE08/13/[address]: Dr. Vikash Workman MD : 1945 BED: DIS: 08/13/2021 SPEC #: [id number] RECD: 08/13/21 15:00 STATUS: SONU REPraveena #: [id number] RYAN: 08/13/21 00:[address]: Vikash Workman DEPT: CYTOLOGY RECD BY: Ned Jaime ENTERED: 08/14/21 07:04 SP TYPE: CYSPIN FL OTHR DR: Dr. Carrie Vincent MD Tissues: Urine Procedures: Pap Stain (control) Special Stain Group II Cytospin Fluid HEADER OPERATION: Not noted PRE-OP DIAGNOSIS: Malignant neoplasm of bladder TISSUE SUBMITTED: Urine for cytology DIAGNOSIS CYTOLOGY Urine for cytology (cytospin): Negative for malignant cells. Paucicellular specimen. See comment. SJ:fely 08/14/2021 COMMENT The specimen predominantly consists of squamous epithelial cells. Clinical correlation and appropriate follow up are necessary. CYTOLOGY STUDY Slides are reviewed. CYTOLOGY GROSS Received is 5 ml of hazy yellow fluid labeled with the patient's name and and designated per the requisition as urine. Submitted for cytology preparation. / fely 08/14/2021 TC:4 CPT: 50698
[2021-08-13 16:46] LABS: Cytology, Body Fluid / CSF SEE PATHOLOGY REPORT
== END | disposition home or self-care (01) ==
LOC: LABSPEC 16:35
PROVIDERS: PCP Internal Medicine; Visit Provider Urology
DX: Z85.51 Personal history of malignant neoplasm of bladder (principal)
CPT/HCPCS: 88108; 88313

== ENCOUNTER 2021-11-13 12:48 | Day surgery (SDC) | payer MEDICARE, OTHER, SELFPAY ==
[2021-11-13] VITALS (7 sets, daily range): BP systolic 109–138; BP diastolic 68–89; PULSE 47–76; RESP 14–16; TEMP 36.2–36.9; O2SAT 99–100; BMI 26.9
--- NOTE | 2021-11-13 | IMM_PTH ---
PATIENT: NU ARREDONDO LOC: EN U#:[id number] AGE/SX: 76/F ROOM: RE11/13/[address]: Dr. Jose G Wilson DO : 1945 BED: DIS: 11/13/2021 SPEC #: [id number] RECD: 11/15/21 12:38 STATUS: SONU REQ #: [id number] RYAN: 11/13/21 00:[address]: Jose G Wilson DEPT: IMMUNOHISTOCHEMISTRY RECD BY: Ewa Becker ENTERED: 11/15/21 12:40 SP TYPE: IMMUNO OTHR DR: Dr. Carrie Vincent MD Tissues: A - Esophagus, NOS Procedures: P53 (initial) KI-67 (add) PHYSICIAN & INSTITUTION [place] [phone] SPECIMEN INFORMATION: Tissue Source: A ? Distal esophagus biopsy Clinical Info: Nonspecific colitis, GERD Specimen Number: [id number] CPT code: 25957, 92053 METHODOLOGY: Deparaffinized sections of prefer/formalin-fixed tissue or PAP/DQ stained slides are incubated with monoclonal/polyclonal antibodies/oligonucleotide probes. Localization is made via biotin free immunoperoxidase method. Appropriate controls are performed and reacted as expected. Results on target cell population are indicated in the following table: RESULTS: ANTIBODY / CLONE RESULT Block A P53 (DO-7) negative Ki-67 (30-9) negative These tests were developed and their performance characteristics determined by [facility]. They may not have been cleared or approved by the U.S. Food and Drug Administration. The FDA has determined that such clearance or approval is not necessary. The above immunohistochemical/dualISH markers are ordered and reviewed by the Pathologist. INTERPRETATION: A. Distal esophagus, biopsy: No evidence of dysplasia. AM:fely 11/16/2021
--- NOTE | 2021-11-13 13:36 | HP.PCM_ITS ---
History and Physical Date of Admission: 11/13/21 HPI Details: NU ARREDONDO, is a 75 F who presents to the office today for f/u ED visit 06/12/21 for rectal bleeding and LLQ pain. She had been constipated, which is common for her.? Then she felt like she might have a stomach bug, had multiple BMs 1 day, then noted pink mucous.? The left lower quadrant mild pain had resolved by the time she presented to the ED.? She was diagnosed with colitis; CT with IV contrast showed long segment left colon wall thickening with pericolonic stranding suggesting colitis including infectious, inflammatory and ischemic causes.? She was treated with ciprofloxacin and metronidazole.? She has not had any rectal bleeding since that time.? She did have mild left lower quadrant discomfort yesterday, however no other abdominal pain since the ED visit.? No prior history of colitis that she recalls. She does tend to have constipation.? She drinks a small amount of prune juice every 2-3 days for constipation which helps.? She often has pebble-like stools.? She has BM every other day typically.? No melena or hematochezia. She takes Nexium 20 mg daily for heartburn. She drinks alcohol on the weekends, was having heartburn then, changed to beer which causes less heartburn.? She denies nausea, vomiting, hematemesis.? No history of esophagitis or Rodgers's esophagus.? She might have had an EGD many years ago. 06/12/21 CT/Abdomen/Pelvis W IV Cont ONLY IMPRESSION: Long segment (left) colon wall thickening with pericolonic stranding suggesting colitis including infectious, inflammatory and ischemic causes. ? 05/2017 Barium Enema No Air Cont IMPRESSION: Redundancy of the sigmoid colon. Past medical history includes bladder cancer, coronary artery disease, degenerative disc disease, hyperlipidemia, hypertension, IBS Past surgery includes arthroscopic knee surgery, heart cath, hysterectomy ROS Const Constitutional: No fatigue ENT ENT: No difficulty swallowing Gastro GI: Positive for abdominal pain, change in bowel habits, constipation, diarrhea, heartburn and Blood in stool; No belching, bloating, change in stool character, coffee ground emesis, cramping, difficulty swallowing, feeling full early, excessive flatus, incontinent of stools, Vomiting blood/hematemesis, loose stools, Black,tarry stools, nausea/dyspepsia, pain with swallowing, vomiting or other Musc Musculoskeletal: No joint pain Skin Skin: No yellowing of the eye or itchy eyes Psych Psychiatric: No anxiety and No depression Endo Endocrine: No fatigue Aller/Imm Allergy/Immunologic: No itchy eyes Juan/Lymp Hematologic/Lymphatic: No easy bleeding or easy bruising Exam Const General: cooperative, comfortable, well developed and well groomed Eyes General: appearance normal, both eyes and all related structures Resp Effort & Inspection: normal respiratory effort GI Inspection: normal to inspection Palpation: soft, no hepatosplenomegaly, no masses and nontender Neuro Speech: speech normal Gait: normal gait Psych Mood: euthymic mood Affect: normal affect Quality Reporting Tobacco Screening ([facility] 138) Smoking Status: Former smoker Assessment and Plan Assessment and Plan (1) Non-specific colitis: (2) Colitis: ?Status:?Acute (3) GERD (gastroesophageal reflux disease): ?Status:?Chronic ? ? ? Orders:?Orders: ? Comprehensive Metabolic Profil Today K52.9, K52.9 ? ? CRP Today K52.9, K52.9 ? ? CBC W/Diff, Automated Today K52.9, K52.9 ? ? Erythrocyte Sed Rate Today K52.9, K52.9 ? ? BABS Comprehensive Panel TodayB K52.9, K52.9 ? ? Calprotectin, Stool Today K52.9, K52.9 ? ? Stool Lactoferrin/WBC Today K52.9, K52.9 ? ? Celiac Disease Profile Today K52.9, K52.9 ?Plan - Niyah Null NP, [employer]-C: 75-year-old female with history of colitis in May 2021.? No further rectal bleeding since then.? 1 episode of mild left lower quadrant discomfort.? She does have chronic constipation.? We will get labs today including inflammatory markers.? We will do stool tests for inflammation also.? Differential diagnosis includes infectious colitis, inflammatory bowel disease, microscopic colitis.? We will get her scheduled for upper and lower endoscopy.? With follow-up 2 weeks after that with Dr. Wilson to discuss results and biopsy reports.? Continue Nexium 20 mg daily for heartburn, will evaluate her for Rodgers's on EGD.? Discussed management of constipation, try daily MiraLAX with the prune juice.? Could add a small amount of mineral oil or castor oil to help with lubrication considering the pebble-like stools. I have re-examined the patient. There are no clinical changes since date of exam.
[2021-11-13] MEDS: Lactated Ringers 1,000 ML 15 ML IV (13:39)
--- NOTE | 2021-11-13 14:00 | COLBX_PTH ---
PATIENT: NU ARREDONDO LOC: EN U#:[id number] AGE/SX: 76/F ROOM: RE11/13/[address]: Dr. Jose G Wilson DO : 1945 BED: DIS: 11/13/2021 SPEC #: [id number] RECD: 11/13/21 15:39 STATUS: SONU REPraveena #: [id number] RYAN: 11/13/21 14:[address]: Jose G Wilson DEPT: SURGICAL PATHOLOGY RECD BY: Ned Jaime ENTERED: 11/14/21 08:04 SP TYPE: COLON BX OTHR DR: Dr. Carrie Vincent MD Tissues: A - Esophagus, NOS B - Ascending colon C - Cecum, NOS D - Cecum, NOS E - Cecum, NOS F - Rectum, NOS Procedures: Surgery Specimen Level IV HEADER OPERATION: [place] [place], snare PRE-OP DIAGNOSIS: Nonspecific colitis, GERD TISSUE SUBMITTED: A ? Distal esophagus biopsy, B ? Ascending colon polyp, C ? Cecal polyp, D ? Ileocecal valve mass, E - Ileocecal valve biopsy, F ? Rectal polyp MICROSCOPIC DIAGNOSIS A. Distal esophagus, biopsy: Gastroesophageal junctional mucosa with mild chronic inflammation. Focal goblet cell metaplasia. No evidence of dysplasia. See comment. B. Ascending colon polyp, biopsy: Fragments of tubular adenoma. C. Cecal polyp, biopsy: Tubular adenoma. D. Ileocecal valve mass, biopsy: Fragments of tubulovillous adenoma. E. Ileocecal valve, biopsy: No pathologic change. F. Rectal polyp, biopsy: Fragments of tubular adenoma. AM:fely 11/15/2021 COMMENT A. Alcian blue/PAS stain with matched control supports the above diagnosis. Focus of goblet cell metaplasia is noted in this slide. Immunohistochemistry ([id number]) for P53 and Ki-67 will be performed and results will be reported separately. Case has been reviewed in consultation with Dr. Sutherland who concurs with the above diagnosis. IDC:SJ MICROSCOPIC DESCRIPTION Slides are reviewed. GROSS DESCRIPTION A - Received in fixative is one container labeled with the patient's name and designated distal esophagus biopsy. The specimen consists of multiple irregular fragments of light woods soft tissue that in aggregate measure 1 x 0.3 x 0.1 cm. The specimen is totally submitted in one cassette. B - Received in fixative is one container labeled with the patient's name and designated ascending colon polyp. The specimen consists of multiple irregular fragments of light woods soft tissue that in aggregate measure 1 x 0.2 x 0.1 cm. The specimen is totally submitted in one cassette. C - Received in fixative is one container labeled with the patient's name and designated cecal polyp. The specimen consists of a piece of woods-pink polyp measuring 0.5 x 0.3 x 0.2 cm. The specimen is totally submitted in one cassette. D - Received in fixative is one container labeled with the patient's name and designated ileocecal valve mass. The specimen consists of multiple irregular fragments of light woods soft tissue that in aggregate measure 3 x 2.5 x 0.4 cm. The specimen is totally submitted in one cassette. E - Received in fixative is one container labeled with the patient's name and designated ileocecal valve biopsy. The specimen consists of one irregular fragment of light woods soft tissue that measures 0.3 x 0.3 x 0.1 cm. The specimen is totally submitted in one cassette. F - Received in fixative is one container labeled with the patient's name and designated rectal polyp. The specimen consists of multiple irregular fragments of light woods soft tissue that in aggregate measure 1 x 0.5 x 0.1 cm. The specimen is totally submitted in one cassette. / SJ:rg 11/14/2021 TC:3 CPT: 23565 x6, 66370
--- NOTE | 2021-11-13 15:10 | OP.EGD_ITS ---
Patient Name: Maryuri Martinez Procedure Date: 11/13/2021 1:57 PM Date of : 1945 Age: 76 Procedure: Upper GI endoscopy Indications: Epigastric abdominal pain, Suspected esophageal reflux Providers: Jose G Wilson DO Referring MD: Jose G Wilson DO Medicines: Monitored Anesthesia Care Patient Profile: This is a 76 year old female. Refer to note in patient chart for documentation of history and physical. Patient has symptoms of chronic right lower quadrant abdominal pain and acute epigastric abdominal pain. Complications: No immediate complications. Procedure: Pre-Anesthesia Assessment: - Prior to the procedure, a History and Physical was performed, and patient medications and allergies were reviewed. The risks and benefits of the procedure and the sedation options and risks were discussed with the patient. All questions were answered and informed consent was obtained. Patient identification and proposed procedure were verified by the physician in the pre-procedure area. Mental Status Examination: alert and oriented. Airway Examination: normal oropharyngeal airway and neck mobility. Respiratory Examination: clear to auscultation. CV Examination: normal. Prophylactic Antibiotics: The patient does not require prophylactic antibiotics. Prior Anticoagulants: The patient has taken no previous anticoagulant or antiplatelet agents. ASA Grade Assessment: II - A patient with mild systemic disease. After reviewing the risks and benefits, the patient was deemed in satisfactory condition to undergo the procedure. The anesthesia plan was to use monitored anesthesia care (MAC). Immediately prior to administration of medications, the patient was re-assessed for adequacy to receive sedatives. The heart rate, respiratory rate, oxygen saturations, blood pressure, adequacy of pulmonary ventilation, and response to care were monitored throughout the procedure. The physical status of the patient was re-assessed after the procedure. After obtaining informed consent, the endoscope was passed under direct vision. Throughout the procedure, the patient's blood pressure, pulse, and oxygen saturations were monitored continuously. The colonoscope was introduced through the mouth, and advanced to the second part of duodenum. The upper GI endoscopy was accomplished without difficulty. The patient tolerated the procedure well. Scope In: 2:11:40 PM Scope Out: 2:15:07 PM Total Procedure Duration Time 0 hours 3 minutes 27 seconds Findings: The Z-line was irregular and was found 38 cm from the incisors. Biopsies were taken with a cold forceps for histology. Verification of patient identification for the specimen was done. Estimated blood loss was minimal. A medium-sized hiatal hernia was present. The exam was otherwise without abnormality. No gross lesions were noted in the first portion of the duodenum. Impression: - Z-line irregular, 38 cm from the incisors. Biopsied. - Medium-sized hiatal hernia. - The examination was otherwise normal. - No gross lesions in the first portion of the duodenum. Recommendation: - Discharge patient to home. - Resume previous diet. - Continue present medications. - Await pathology results. Procedure Code(s): --- Professional --- 72503, Esophagogastroduodenoscopy, flexible, transoral; with biopsy, single or multiple CPT copyright 2017 [employer]. All rights reserved. The codes documented in this report are preliminary and upon hosiery pairer review may be revised to meet current compliance requirements. Jose G Wilson DO 11/13/2021 3:09:43 PM This report has been signed electronically. Number of Addenda: 0 Note Initiated On: 11/13/2021 1:57 PM
--- NOTE | 2021-11-13 15:11 | OP.CCLET_ITS ---
11/13/2021 Carrie Vincent [address] [place] [address] Re : Upper GI endoscopy procedure for Maryuri Martinez Dear Dr. Vincent This procedure was performed on Saturday, November 13, 2021. My impressions and recommendations are as follows: Impressions : - Z-line irregular, 38 cm from the incisors. Biopsied. - Medium-sized hiatal hernia. - The examination was otherwise normal. - No gross lesions in the first portion of the duodenum. Recommendations : - Discharge patient to home. - Resume previous diet. - Continue present medications. - Await pathology results. My findings are described in the full procedure note, which is enclosed. If I can be of further assistance, please feel free to contact me at . Sincerely, Jose G Wilson, 11/13/2021 3:09:43 PM This report has been signed electronically.
--- NOTE | 2021-11-13 15:18 | OP.CCLET_ITS ---
11/13/2021 Carrie Vincent [address] [place] [address] Re : Colonoscopy procedure for Maryuri Martinez Dear Dr. Vincent This procedure was performed on Saturday, November 13, 2021. My impressions and recommendations are as follows: Impressions : - Three 2 to 3 mm polyps in the rectum, in the ascending colon and in the cecum, removed with a hot snare. Resected and retrieved. - One 20 mm polyp at the ileocecal valve, removed with a hot snare, removed using injection-lift and a hot snare and removed piecemeal using a hot snare. Incomplete resection. Resected tissue retrieved. Treated with argon plasma coagulation (APC). - Redundant colon. - Stricture at the ileocecal valve. Biopsied. Recommendations : - Discharge patient to home. - Full liquid diet today. - Continue present medications. - Await pathology results. - Repeat colonoscopy for surveillance based on pathology results. - Colace capsule(s) orally 100 mg BID for 3 days. My findings are described in the full procedure note, which is enclosed. If I can be of further assistance, please feel free to contact me at . Sincerely, Jose G Wilson, 11/13/2021 3:17:38 PM This report has been signed electronically.
--- NOTE | 2021-11-13 15:18 | OP.COLON_ITS ---
Patient Name: Maryuri Martinez Procedure Date: 11/13/2021 2:15 PM Date of : 1945 Age: 76 Procedure: Colonoscopy Indications: Screening for colorectal malignant neoplasm Providers: Jose G Wilson DO Referring MD: Jose G Wilson DO Medicines: Monitored Anesthesia Care Patient Profile: This is a 76 year old female. Refer to note in patient chart for documentation of history and physical. Patient has symptoms of chronic right lower quadrant abdominal pain and acute epigastric abdominal pain. Last Colonoscopy: 10 years ago. Complications: No immediate complications. Procedure: Pre-Anesthesia Assessment: - Prior to the procedure, a History and Physical was performed, and patient medications and allergies were reviewed. The risks and benefits of the procedure and the sedation options and risks were discussed with the patient. All questions were answered and informed consent was obtained. Patient identification and proposed procedure were verified by the physician in the pre-procedure area. Mental Status Examination: alert and oriented. Airway Examination: normal oropharyngeal airway and neck mobility. Respiratory Examination: clear to auscultation. CV Examination: normal. Prophylactic Antibiotics: The patient does not require prophylactic antibiotics. Prior Anticoagulants: The patient has taken no previous anticoagulant or antiplatelet agents. ASA Grade Assessment: II - A patient with mild systemic disease. After reviewing the risks and benefits, the patient was deemed in satisfactory condition to undergo the procedure. The anesthesia plan was to use monitored anesthesia care (MAC). Immediately prior to administration of medications, the patient was re-assessed for adequacy to receive sedatives. The heart rate, respiratory rate, oxygen saturations, blood pressure, adequacy of pulmonary ventilation, and response to care were monitored throughout the procedure. The physical status of the patient was re-assessed after the procedure. After I obtained informed consent, the scope was passed under direct vision. Throughout the procedure, the patient's blood pressure, pulse, and oxygen saturations were monitored continuously. The Colonoscope was introduced through the anus and advanced to the cecum, identified by appendiceal orifice and ileocecal valve. The colonoscopy was performed without difficulty. The patient tolerated the procedure well. The quality of the bowel preparation was good. Scope In: 2:17:28 PM Scope Withdrawal Time 0 hours 35 minutes 16 seconds Scope Out: 3:04:31 PM Total Procedure Duration Time 0 hours 47 minutes 3 seconds Findings: The perianal and digital rectal examinations were normal. Three sessile polyps were found in the rectum, ascending colon and cecum. The polyps were 2 to 3 mm in size. These polyps were removed with a hot snare. Resection and retrieval were complete. Verification of patient identification for the specimen was done. Estimated blood loss was minimal. A 20 mm polyp was found in the ileocecal valve. The polyp was sessile. The polyp was removed with a hot snare. The polyp was removed with a saline injection-lift technique using a hot snare. The polyp was removed with a piecemeal technique using a hot snare. Polyp resection was incomplete. The resected tissue was retrieved. Coagulation for tissue destruction using argon plasma at 0.3 liters/minute and 20 haynes was successful. Estimated blood loss was minimal. The sigmoid colon, splenic flexure and transverse colon were significantly redundant. A benign-appearing, intrinsic severe stenosis measuring 1 cm (in length) x 1 mm (inner diameter) was found at the ileocecal valve and was non-traversed. Biopsies were taken with a cold forceps for histology. Verification of patient identification for the specimen was done. Estimated blood loss was minimal. Impression: - Three 2 to 3 mm polyps in the rectum, in the ascending colon and in the cecum, removed with a hot snare. Resected and retrieved. - One 20 mm polyp at the ileocecal valve, removed with a hot snare, removed using injection-lift and a hot snare and removed piecemeal using a hot snare. Incomplete resection. Resected tissue retrieved. Treated with argon plasma coagulation (APC). - Redundant colon. - Stricture at the ileocecal valve. Biopsied. Recommendation: - Discharge patient to home. - Full liquid diet today. - Continue present medications. - Await pathology results. - Repeat colonoscopy for surveillance based on pathology results. - Colace capsule(s) orally 100 mg BID for 3 days. Procedure Code(s): --- Professional --- 60839, Colonoscopy, flexible; with ablation of tumor(s), polyp(s), or other lesion(s) (includes pre- and post-dilation and guide wire passage, when performed) 85237, 59, Colonoscopy, flexible; with removal of tumor(s), polyp(s), or other lesion(s) by snare technique 42047, Colonoscopy, flexible; with directed submucosal injection(s), any substance 24321, 59, Colonoscopy, flexible; with biopsy, single or multiple CPT copyright 2017 [employer]. All rights reserved. The codes documented in this report are preliminary and upon skiver operator review may be revised to meet current compliance requirements. Jose G Wilson DO 11/13/2021 3:17:38 PM This report has been signed electronically. Number of Addenda: 0 Note Initiated On: 11/13/2021 2:15 PM
== END 2021-11-13 15:58 | disposition home or self-care (01) ==
LOC: EN 12:49 → AC 12:51
PROVIDERS: PCP Internal Medicine; Referring Provider Internal Medicine; Visit Provider Internal Medicine Gastroenterology
PROC: 0DJD8ZZ Inspection of Lower Intestinal Tract, Via Natural or Artificial Opening Endoscopic (ICD-10-PCS; CPT 45378; principal; 2021-11-13 13:55)
DX: D12.2 Benign neoplasm of ascending colon (principal); K21.00 Gastro-esophageal reflux disease with esophagitis, without bleeding; D12.0 Benign neoplasm of cecum; D12.8 Benign neoplasm of rectum; K22.70 Barrett's esophagus without dysplasia; Z86.16 Personal history of COVID-19; E78.00 Pure hypercholesterolemia, unspecified; I10 Essential (primary) hypertension; Z85.51 Personal history of malignant neoplasm of bladder; Z79.82 Long term (current) use of aspirin; Z79.899 Other long term (current) drug therapy; I25.10 Atherosclerotic heart disease of native coronary artery without angina pectoris; K58.9 Irritable bowel syndrome, unspecified; Z78.0 Asymptomatic menopausal state; K44.9 Diaphragmatic hernia without obstruction or gangrene
CPT/HCPCS: 45380; 45385; 43239; 45381; 45388; 88305; 88341; 88342; J7120

== ENCOUNTER 2022-02-06 13:02 | Emergency (ER) | payer MEDICARE, OTHER, SELFPAY ==
[2022-02-06 13:03] VITALS: BP 153/99; PULSE 91; RESP 16; TEMP 36.5; O2SAT 98; BMI 28.0
--- NOTE | 2022-02-06 13:13 | EKG12_ITS ---
Test Reason : LEFT ARM PAIN Blood Pressure : / mmHG Vent. Rate : 084 BPM Atrial Rate : 084 BPM P-R Int : 164 ms QRS Dur : 074 ms QT Int : 358 ms P-R-T Axes : 028 -20 014 degrees QTc Int : 423 ms Normal sinus rhythm Normal ECG Confirmed by SHARI HEARN, BOONE ([id number]), slot editor DERRICK CORTES ([id number]) on 02/07/2022 8:28:42 AM Referred By: TL Confirmed By:BOONE MCCARTHY MD
--- NOTE | 2022-02-06 13:35 | RAD_ITS ---
STUDY: X-RAY - LEFT SHOULDER REASON FOR EXAM: Female, 76 years old. pain TECHNIQUE: 2 view(s) of the shoulder. COMPARISON: None. FINDINGS: There is moderate degenerative arthrosis of the glenohumeral articulation. There is degenerative arthrosis of the acromioclavicular joint without inferior osseous spur formation. Normal acromion. Normal humeral head and visualized proximal humerus. The soft tissue structures are unremarkable. Normal visualized pulmonary apex. RAD/Shoulder min 2 Views IMPRESSION: Moderate glenohumeral joint arthrosis. Electronically Signed: Franck Evans MD at 14:17 EST ,
--- NOTE | 2022-02-06 13:37 | EX.ED.UPPERE ---
HPI History of Present Illness Chief Complaint: Upper Extremity Injury Detail of Chief Complaint: Left shoulder pain Informant: patient Narrative Narrative: Patient presents with left shoulder pain x5 days. She denies any injury or trauma. Patient states normally she sleeps on her right side. Patient states the pain comes and goes and is a dull ache. She denies any chest pain or shortness of breath out of the ordinary with activity. Patient is concerned that this could be her heart because she had a heart cath 7 years ago and was told she had a small branch of one of her arteries that was completely occluded but had collateralization. Patient otherwise has no stents. Patient denies recent illness. She denies trauma to the shoulder. [facility] Medical History (Updated 02/06/22 @ 15:[address] Radha Marr, ) Alcohol use Arthritis Atherosclerosis of coronary artery of [place] heart without angina pectoris Back pain Blackout Bladder cancer Cancer Cardiology follow-up encounter Carotid arterial disease Carotid artery bruit Carotid artery stenosis without cerebral infarction Chest pain COVID-19 DDD (degenerative disc disease), lumbar Former smoker Gastric reflux GERD (gastroesophageal reflux disease) High cholesterol History of echocardiogram History of steroid therapy Hyperlipidemia Hypertension IBS (irritable bowel syndrome) Leg cramps Normal stress echocardiogram Post-menopausal Shortness of breath on exertion Wears glasses Home Medications acetaminophen 300 mg-codeine 30 mg tablet 0.5 tab PO PRN PRN Pain 05/24/14 [History Last Taken Unknown] aspirin 81 mg chewable tablet 81 mg PO DAILY@0800 05/24/14 [History Last Taken 05/25/14] hydrochlorothiazide 12.5 mg capsule 12.5 mg PO DAILY 05/24/14 [History Last Taken Unknown] oxybutynin chloride 5 mg tablet,extended release 24 hr 5 mg PO PRN PRN Bladder Spasm 05/24/14 [History Last Taken Unknown] esomeprazole magnesium 20 mg capsule,delayed release (Nexium) 20 mg PO DAILY 02/03/18 [History Last Taken Unknown] simvastatin 40 mg tablet 40 mg PO QPM #90 tabs 06/30/18 [Rx Last Taken Unknown] glucosamine-chondroitin 250 mg-200 mg tablet (Osteo Bi-Flex) 1 tab PO DAILY 07/03/20 [History Last Taken Unknown] imipramine HCl 25 mg tablet 25 mg PO PRN PRN Abdominal Discomfort 07/03/20 [History Last Taken Unknown] vitamin E mixed 400 unit capsule 400 unit PO .QOD 09/24/21 [History Last Taken Unknown] amlodipine 5 mg tablet 5 mg PO QHS #90 tabs 10/16/21 [Rx Last Taken Unknown] Allergy/AdvReac Type Severity Reaction Status Date / Time morphine Allergy Unknown Verified 02/06/22 13:03 Family History Father CAD (coronary artery disease) CABG Mother Cancer of kidney Cancer of lung Surgical History H/O arthroscopic knee surgery History of left heart catheterization (05/25/14) History of partial hysterectomy Hx of neck surgery Status post excision of Rojas's neuroma Social History Smoking Status: Former smoker ROS ROS ED Review of Systems ROS Unobtainable: other Constitutional Constitutional ED: Reports lethargy; Denies chills, fever(s), sweats or weight loss Eyes Eyes: Denies blurry vision, change in vision or diplopia ENT ENT ED: Denies rhinorrhea or sore throat Cardiovascular Cardiovascular: Denies chest pain, orthopnea or racing heartbeat Respiratory/Chest Respiratory/Chest: Denies cough, dyspnea, dyspnea on exertion, orthopnea or sputum Gastrointestinal Gastrointestinal: Denies abdominal pain, diarrhea, nausea or vomiting Genitourinary Genitourinary ED: Denies dysuria, hematuria or urinary frequency Musculoskeletal Musculoskeletal: Reports other Details: Left shoulder pain ; Denies arthralgias, back pain, myalgias or neck pain Integumentary Denies abscess, Abrasions or rash Neurologic Neurologic: Denies headache(s) or weakness Psychiatric Psychiatric: Denies anxiety, depression or suicidal thoughts Endocrine Endocrinology: Denies polydipsia, polyphagia or polyuria Hematologic/Lymphatic Hematologic/Lymphatic: Denies easy bleeding, easy bruising or lymphadenopathy Allergic/Immunologic Allergic/Immunologic ED: Denies mouth swelling, tongue swelling or urticaria EXAM Physical Exam Const Vital Signs: 02/06/22 13:03 Temperature 97.7 F L Temperature Source Temporal Pulse Rate 91 Respiratory Rate 16 Blood Pressure 153/99 H Blood Pressure Mean 117 Pulse Ox 98 Oxygen Delivery Method Room Air Positive well nourished and well developed General Appearance ED: well developed and NAD HEENT Reports TM's clear and moist mucous membranes normocephalic and atraumatic; Negative for trauma or tenderness Tympanic Membrane ED: Yes TM's clear Eyes PERRL and EOMs intact bilaterally General Eye ED: Negative for pale conjunctiva or scleral icterus Neck no lymphadenopathy, supple and no JVD General: Negative for tenderness Chest Wall inspection of chest normal and palpation of chest normal Chest: Negative for tenderness Resp normal respiratory effort and clear to auscultation bilaterally Effort and Inspection: Negative for respiratory distress or pain with movement Auscultation: Negative for rhonchi, wheezes or diminished lung sounds Cardio regular rate, regular rhythm, S1 normal heart sound, S2 normal heart sound and no murmurs Peripheral Pulses: pulses 2+ throughout GI normal to inspection, nondistended, normoactive bowel sounds, soft to palpation, non-tender, non-distended and no masses Back/Spine no CVA tenderness and no thoracic nor lumbar tenderness Extremity normal to inspection General Extremety ED: Negative for edema General Extremity: Negative for edema Neuro oriented x3, CN's II-XII intact bilaterally, no sensory deficits noted and gait normal Sensorium / Orientation: awake, alert, oriented to person, oriented to place and oriented to time Motor Exam: strength 5/5 throughout and strength abnormal Psych mental status grossly normal Skin no rashes or lesions noted and no wounds MDM MDM MDM Narrative Medical decision making narrative: We will establish arrival. EKG obtained showed a sinus rhythm with a ventricular rate of 84 bpm with no acute ST segment changes. Patient had basic labs including CBC and chemistries which were normal. Troponin was normal. I did do x-rays of the left shoulder and a chest x-ray and essentially unremarkable other than she did have arthrosis of the left glenohumeral joint. This point etiology of her pain is unclear. I do not suspect this to be an acute coronary syndrome or anginal equivalent. Patient advised to follow-up with her primary care physician within next 5 to 7 days. Patient states she will take Tylenol for discomfort. Patient advised to return if chest pain, shortness of breath with exertion, or condition worsen anyway Lab Data Attestation: I reviewed the patient's lab results. Discharge Plan Triage Chief Complaint: Upper Extremity Injury ED Provider: Radha Marr Dx/Rx/DC Orders Clinical Impression: Acute pain of left shoulder Instructions: ED Pain, Acute, Uncertain Cause Prescriptions: No Action esomeprazole magnesium [Nexium] 20 mg capsule,delayed release(DR/EC) 20 mg PO DAILY imipramine HCl 25 mg tablet 25 mg PO PRN PRN (Reason: Abdominal Discomfort) glucosamine-chondroitin [Osteo Bi-Flex] 250-200 mg tablet 1 tab PO DAILY vitamin E mixed 400 unit capsule 400 unit PO .QOD hydrochlorothiazide 12.5 MG capsule 12.5 mg PO DAILY Label Comments: BLOOD PRESSURE oxybutynin chloride 5 MG tablet 5 mg PO PRN PRN (Reason: Bladder Spasm) Label Comments: OVERACTIVE BLADDER aspirin 81 MG tablet,chewable 81 mg PO DAILY@0800 Label Comments: [facility] acetaminophen-codeine 1 TABLET tablet 0.5 tab PO PRN PRN (Reason: Pain) Label Comments: COUGH simvastatin 40 mg tablet 40 mg PO QPM Qty: 90 3RF amlodipine 5 mg tablet 5 mg PO QHS Qty: 90 4RF Primary Care Provider: Carrie Vincent Referrals: Carire Vincent MD [Primary Care Provider] - 5-7 Days Disposition Disposition: Home, Self Care
[2022-02-06 13:54] LABS: Absolute Lymphocyte Count 2.19 X10^3/uL (0.83-4.51); Basophil# 0.04 X10^3/uL; Basophil% 0.7 % (0-1); Eosinophils% 1.7 % (0-5); Hematocrit 38.1 % (37-47); Hemoglobin 13.3 g/dL (12.0-15.0); Lymphocyte # 2.19 X10^3/ul (0.83-4.51); Mean Corp Hgb Conc 34.9 g/dL (32-36); Mean Corpuscular Hgb 34.2 pg (27.0-32.0); Mean Corpuscular Volume 97.9 fL (81-99); Mean Platelet Vol. 11.7 fl (6.2-12.0); Monocyte# 0.37 X10^3/uL; Monocyte% 6.4 % (0-10); NRBC Flagged by Analyzer 0 % (0-5); Neutrophil # 3.04 X10^3/uL (2.7-7.7); Neutrophil % 52.9 % (47-70); Platelet Count 284 K/mm3 (150-450); RBC Distribution Width CV 12.8 % (11.6-14.6); RBC Distribution Width SD 45.6 fl (35.1-43.9); Red Blood Count 3.89 M/mm3 (4.2-5.4); White Blood Count 5.8 K/mm3 (4.4-11.0)
--- NOTE | 2022-02-06 14:00 | RAD_ITS ---
HISTORY: Hypertension, chest pain radiating into left shoulder. TECHNIQUE: XR Chest 1 View. COMPARISON: 05/19/2014. FINDINGS: CARDIOMEDIASTINAL BORDERS: Cardiac silhouette within normal limits in size. Mediastinal contour unremarkable with calcification of the aortic knob. LUNGS: Radiographically clear. Minimal scarring in the left lung base PLEURA: No pleural effusion or pneumothorax seen. OSSEOUS STRUCTURES: Degenerative change and mild scoliosis. RAD/Chest 1 View (Portable) IMPRESSION: No acute cardiopulmonary process identified. Electronically Signed: Jacklyn Vigil MD at 14:23 EST ,
[2022-02-06 14:12] LABS: Anion Gap 7 (5-15); BUN 15 mg/dL (7-18); BUN/Creat Ratio 16.3 RATIO (10-20); Calcium,Total 9.1 mg/dL (8.5-10.1); Chloride 105 mmol/L (98-107); Creatinine, Serum 0.92 mg/dL (0.55-1.02); EST Glomerular Filtration Rate 63 mL/min (>60); Est Glom Filt Rate - Afr Amer 76 mL/min (>60); Estimated Creatinine Clearance 44.38 ml/min; Glucose 89 mg/dL (74-106); Potassium 3.5 mmol/L (3.5-5.1); Sodium Level 140 mmol/L (136-145); Troponin-I HS 4 pg/mL (3.0-54.0)
[2022-02-06 15:13] VITALS: BP 139/82; PULSE 76; RESP 15; O2SAT 99
== END 2022-02-06 15:14 | disposition home or self-care (01) ==
PROVIDERS: Emergency Provider Emergency Medicine; PCP Internal Medicine; Visit Provider Emergency Medicine
DX: M19.012 Primary osteoarthritis, left shoulder (principal); I25.10 Atherosclerotic heart disease of native coronary artery without angina pectoris; I10 Essential (primary) hypertension; E78.5 Hyperlipidemia, unspecified; M25.512 Pain in left shoulder; Z87.891 Personal history of nicotine dependence
CPT/HCPCS: 71045; 73030; 80048; 84484; 85025; 93005; 99284

== ENCOUNTER 2023-01-24 10:30 | Outpatient (RCR) | payer MEDICARE, OTHER, SELFPAY ==
--- NOTE | 2022-12-27 14:04 | HP.PTEVAL ---
Patient's Visit Information Visit Information Visit Information: NU ARREDONDO is a 77 year old F referred to Physical Therapy by JESSICA Padilla with a diagnosis of LBP. Date of Evaluation: 12/23/22 Physical Therapist: Armando Wolff, PT, ATC Visit Plan Frequency: 2-3x /Week Duration: 4 Weeks Plan: Evaluate benefit of prone prop ex's next Rx. Subjective Subjective: Pt reports having chronic back pain for several years. Pt notes she would go to the chiropractor in order to treat it at that time. Pt also complains of R calf pain which she thinks is due to her LB. Pt reports she was told 15 years ago that she needed surgery on her LB, but she didn't want to have it at this time. Pt reports bending over and working in her yard increases her pain. Pt reports she has not found out anything to help take her pain away. Pt reports occasional sleep difficulty secondary to pain. 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 1/10 pain while sitting here at rest, 8/10 pain at worst. Pain LBP: Pain Intensity (Out of 10): 1 Pain Intensity Range: 8 Objective Objective: Neuro: B LE sensation is WNL to light touch. B patellar reflex= 2/3 MMT: B LE's are grossly 4/5 throughout ROM: Pt is moderately limited with L/S ext. ROM. minimally limited with flex. Repeated movements: RFIS 10x3 NE; MAGDA 10x3 . Prone prop on elbows increase L LE radiculopathy Balance/Special Test Scores Quick DASH Score: 6.8175 Goals Goal 1:: Increase B LE strength x 1 grade to aid with stair negotiation Goal Time Frame: 4-6 Weeks Goal 2:: Increase L/S ext ROM to aid with decreasing pain Goal Time Frame: 4-6 Weeks Goal 3:: Decrease LBP x 50% to aid with sleep Goal Time Frame: 4-6 Weeks Goal 4:: I with HEP Goal Time Frame: 4-6 Weeks Rehabilitation Potential Physical Therapy Diagnosis: Pt has limited L/S ext ROM and B LE weakness secondary to degenerative changes in the L/S Rehabilitation Potential: Good Anticipated Interventions Patient/Client Instruction: Educate patient on: Condition and Plan of Care For the Purpose of:: To improve self management Therapeutic Exercise to Include: Strength training, Endurance training, Postural training, Active ROM and Dynamic Lumbar Stabilization For the Purpose of:: To decrease pain and To improve muscle performance and motor function Cryotherapy (ice pack, ice massage): Yes For the Purpose of:: To decrease pain, To increase ROM and To improve muscle performance and motor function Text: Thank you for the opportunity to evaluate your patient. For Medicare and Medicare HMO plans, please review the plan of care and approve it. It will need to be FAXED BACK to us at [phone] for Medicare purposes. For Medicare only, by signing this I certify the plan of care. Please let me know if there are questions or concerns regarding this plan of care. Physician Signature: Date:
--- NOTE | 2023-01-24 11:03 | HP.PTDCSUM ---
Discharge Summary D/C summary: It has been my pleasure to treat NU ARREDONDO referred by JESSICA Padilla, with the diagnosis of LBP for a total of 6 visit(s). Discharge Date: 01/24/23 Please see the following information for a summary of their discharge status. Subjective Subjective: PATIENT REPORTS THE EX'S HAVE HELPED. SHE STATES HER LOWER LEG PAIN IS ONLY VERY MILD AND VERY OCCASSIONAL NOW. Pain LBP: Pain Intensity (Out of 10): 1 Overall Improvement % Improvement: 99 Objective Objective/Function: ALL GOALS MET. TOLERATED ALL EX'S WELL TODAY WITHOUT INCREASED PAIN. PATIENT IS INDEP WITH A HEP AND APPROPRIATE FOR DISCHARGE. PATIENT IS AGREEABLE. WRITTEN HEP PROVIDED. Goals Goal 1:: Increase B LE strength x 1 grade to aid with stair negotiation Goal Progress: Goal Met Goal 2:: Increase L/S ext ROM to aid with decreasing pain Goal Progress: Goal Met Goal 3:: Decrease LBP x 50% to aid with sleep Goal Progress: Goal Met Goal 4:: I with HEP Goal Progress: Goal Met Plan Plan: D/C. D/C Information d/c sentence: If there are questions or concerns regarding this patient's physical therapy, please feel free to call me at [phone]. Thank you for the referral of this patient. Sincerely, Naomy Wilson, PT, Cert MDT Balance/Gait/Functional tests Balance/Special Test Scores Oswestry Low Back Score: 7 Lower Extremity Functional Score: 70 Quick DASH Score: 6.8175 Improvement % Improvement: 99
== END 2023-01-24 19:00 | disposition home or self-care (01) ==
LOC: PT 10:30
PROVIDERS: PCP Internal Medicine; Referring Provider Clinical Nurse Specialist; Visit Provider Clinical Nurse Specialist
DX: M54.50 Low back pain, unspecified (principal); G89.29 Other chronic pain
CPT/HCPCS: 97110; 97161; 97530

== ENCOUNTER 2023-03-23 14:35 | Emergency (ER) | payer MEDICARE, OTHER, SELFPAY ==
[2023-03-23 14:36] VITALS: BP 161/100; PULSE 74; RESP 16; TEMP 36.6; O2SAT 98; BMI 27.4
--- NOTE | 2023-03-23 15:28 | CT_ITS ---
STUDY: CT BRAIN WITH AND WITHOUT CONTRAST REASON FOR EXAM: Female, 77 years old. headache, family hx Aneurism RADIATION DOSAGE (If Supplied By Facility): CTDIvol = ( 26.54 ) mGy, DLP = ( 1217.01 ) mGycm TECHNIQUE: Transaxial CT imaging of the brain was performed pre and post contrast administration. The examination was performed with intravenous administration of IV 100mL Isovue-370. Individualized dose optimization techniques were used for this CT. COMPARISON: None. FINDINGS: Normal soft tissue structures. Normal calvarium. There is mild cerebral atrophy with widening of the extra-axial spaces and ventricular dilatation. There are areas of decreased attenuation within the white matter tracts of the supratentorial brain, consistent with microvascular disease changes. Normal basal ganglia and thalami. Normal brainstem. Normal cerebellum. There is no intracranial hemorrhage. There are no findings of an acute ischemic infarction. Normal visualized paranasal sinuses. CT/CTA Head W/WO Contrast IMPRESSION: Chronic involutional changes of the brain. Electronically Signed: Franck Evans MD at 17:53 EST ,
--- NOTE | 2023-03-23 15:30 | EDS_ITS ---
HPI History of Present Illness Chief Complaint: Headache Informant: patient Narrative Narrative: Patient is a 77-year-old female with history of Rodgers's esophagus, carotid artery stenosis, hypertension, hyperlipidemia and coronary artery disease presenting for intermittent headaches. Patient states the past few months she has had intermittent headaches over the top of her head and feel like an ache or sometimes her over her left forehead or behind her left eye. She states she gets a headache daily if not every other day. Note that she had migraines in her 20s does not have a headache since. Especially concerned because her brother had a brain aneurysm and her father had aneurysm in his stomach . She denies any associated nausea or vomiting with her headaches. Sometimes Tylenol helps it feel better. Denies any acute vision changes however notes over the past 6-month since her cataract surgery she has been seeing these white cloud flashing floaters but has follow-up with her document improvement specialist for this. Denies any hearing changes. Denies any pain with chewing or jaw pain. Notes that sometimes her legs feel like jelly but denies any focal numbness or tingling. Denies any fever, unintentional weight change or night sweats. No other com plaints or concerns at this time. No one else at home is been having any headaches. [facility] Medical History Alcohol use Arthritis Atherosclerosis of coronary artery of [place] heart without angina pectoris Back pain Blackout Bladder cancer Cancer Cardiology follow-up encounter Carotid arterial disease Carotid artery bruit Carotid artery stenosis without cerebral infarction Chest pain COVID-19 DDD (degenerative disc disease), lumbar Former smoker Gastric reflux GERD (gastroesophageal reflux disease) High cholesterol History of echocardiogram History of steroid therapy Hyperlipidemia Hypertension IBS (irritable bowel syndrome) Leg cramps Normal stress echocardiogram Post-menopausal Shortness of breath on exertion Wears glasses Home Medications aspirin 81 mg chewable tablet 81 mg PO DAILY@0800 05/24/14 [History Last Taken 05/25/14] hydrochlorothiazide 12.5 mg capsule 12.5 mg PO DAILY 05/24/14 [History Last Taken Unknown] oxybutynin chloride 5 mg tablet,extended release 24 hr 5 mg PO PRN PRN Bladder Spasm 05/24/14 [History Last Taken Unknown] esomeprazole magnesium 20 mg capsule,delayed release (Nexium) 20 mg PO DAILY 02/03/18 [History Last Taken Unknown] glucosamine-chondroitin 250 mg-200 mg tablet (Osteo Bi-Flex) 1 tab PO DAILY 07/03/20 [History Last Taken Unknown] imipramine HCl 25 mg tablet 25 mg PO PRN PRN Abdominal Discomfort 07/03/20 [History Last Taken Unknown] acetaminophen 300 mg-codeine 30 mg tablet 0.5 tab PO PRN PRN Pain 03/27/22 [History Last Taken Unknown] amlodipine 5 mg tablet 5 mg PO QHS #90 tabs 10/10/22 [Rx Last Taken Unknown] simvastatin 20 mg tablet 20 mg PO QPM #90 tabs 10/10/22 [Rx Last Taken Unknown] azithromycin 250 mg tablet See Rx Instructions PO .COMPLEX #6 tabs 02/28/23 [Rx Last Taken Unknown] benzonatate 100 mg capsule 200 mg (2 x 100 mg) PO TID PRN cough #30 caps 02/28/23 [Rx Last Taken Unknown] vitamins A,C,V-vxwn-ugmnpq 2,148 mcg-113 mg-45 mg-17.4 mg tablet (PreserVision AREDS) 2 tab PO BID 02/28/23 [History Last Taken Unknown] Allergy/AdvReac Type Severity Reaction Status Date / Time morphine Allergy Unknown Verified 03/23/23 14:37 Family History Father CAD (coronary artery disease) CABG Mother Cancer of kidney Cancer of lung Surgical History H/O arthroscopic knee surgery History of left heart catheterization (05/25/14) History of partial hysterectomy Hx of neck surgery Status post excision of Rojas's neuroma Social History Smoking Status: Former smoker ROS ROS ED Constitutional Constitutional ED: Denies chills or fever(s) Eyes Eyes: Denies blurry vision or change in vision ENT ENT ED: Denies ear pain, rhinorrhea or sore throat Cardiovascular Cardiovascular: Denies chest pain Respiratory/Chest Respiratory/Chest: Denies cough Gastrointestinal Gastrointestinal: Denies abdominal pain, nausea or vomiting Musculoskeletal Musculoskeletal: Denies arthralgias, myalgias or neck pain Integumentary Denies rash Neurologic Neurologic: Reports headache(s); Denies paresthesias or weakness EXAM Physical Exam Const Vital Signs: 03/23/23 14:36 03/23/23 18:21 Temperature 98 F Temperature Source Temporal Pulse Rate 74 57 L Respiratory Rate 16 14 Blood Pressure 161/100 H 151/76 H Blood Pressure Mean 120 101 Pulse Ox 98 99 Oxygen Delivery Method Room Air Room Air Positive well nourished and well developed General Appearance ED: well developed and NAD HEENT Reports normocephalic and TM's clear atraumatic; Negative for temporal artery tenderness or vesicular rash Face and Sinus: Negative for sinus tenderness Tympanic Membrane ED: Yes TM's clear Eyes PERRL and EOMs intact bilaterally Neck supple, no meningeal signs and no JVD Resp normal respiratory effort and clear to auscultation bilaterally Cardio regular rate, regular rhythm and no murmurs GI non-tender and non-distended Auscultation: normoactive bowel sounds Extremity normal to inspection Neuro oriented x3, CN's II-XII intact bilaterally and no sensory deficits noted Sensorium / Orientation: awake and alert Coordination / Balance: [id number] test normal Speech: speech normal Motor Exam: strength 5/5 throughout; Negative for general weakness Psych mental status grossly normal Skin Lesions: no lesions Rashes: no rashes MDM MDM MDM Narrative Medical decision making narrative: Patient is evaluated for intermittent headaches been going on for months now. She describes it more as an aching pain and it changes location from her for ehead, behind her left eye to the top of her head. She has a normal neurologic exam. Differential includes space-occupying lesion, cerebral aneurysm, tension headache, occipital neuralgia (less likely given the more diffuse distribution in the description of pain) as well as intracranial hemorrhage given lack of reported trauma and longevity of symptoms. Temporal arteritis is on the differential given her age however she does not have any temporal tenderness. Will obtain a CRP as well as basic labs, CBC and BMP and obtain a CTA of the brain with and without contrast to evaluate the parenchyma of the brain as well as evaluate for any aneurysm. Workup largely negative. Patient anne marie stable in the emergency room with minimal symptoms. CTA of the head does not show any acute process. Will be discharged home with outpatient neurology follow-up. Also counseled to follow- up with primary care doctor. Continue to take Tylenol and then may also take NSAIDs or Excedrin as needed for breakthrough headache pain. Patient and verbalized agreement understand this plan. Discharged home in stable condition. Lab Data Attestation: I reviewed the patient's lab results. Labs: Laboratory Results - last 24 hr 03/23/23 16:00 WBC 4.6 RBC 3.42 L Hgb 11.5 L Hct 34.1 L MCV 99.7 H MCH 33.6 H MCHC 33.7 RDW Std Deviation 48.1 H RDW Coeff of Marilyn 13.3 Plt Count 274 MPV 12.1 H Immature Gran % (Auto) 1.700 H Neut % (Auto) 41.2 L Lymph % (Auto) 44.4 H [place] % (Auto) 8.3 Eos % (Auto) 3.5 Baso % (Auto) 0.9 Absolute Neuts (auto) 1.9 L Absolute Lymphs (auto) 2.04 Nucleated RBC % 0 Sodium 141 Potassium 3.7 Chloride 108 H Carbon Dioxide 29.0 Anion Gap 4 L BUN 19 H Creatinine 0.83 Estim Creat Clear Calc 55.08 Est GFR (MDRD) Af Amer 86 Est GFR (MDRD) Non-Af 71 BUN/Creatinine Ratio 22.8 H Glucose 96 Calcium 9.1 C-React Prot Ext Range < 2.90 Radiography Diagnostic Testing: Clinical Impression(s) from Imaging Studies Head CTA 03/23/23 15:28 IMPRESSION: Chronic involutional changes of the brain. Electronically Signed: Franck Evans MD at 17:53 EST , Discharge Plan Triage Chief Complaint: Headache ED Provider: Mehreen Howard Dx/Rx/DC Orders Clinical Impression: Headache Instructions: ED Headache Unspecified Prescriptions: No Action esomeprazole magnesium [Nexium] 20 mg capsule,delayed release(DR/EC) 20 mg PO DAILY imipramine HCl 25 mg tablet 25 mg PO PRN PRN (Reason: Abdominal Discomfort) glucosamine-chondroitin [Osteo Bi-Flex] 250-200 mg tablet 1 tab PO DAILY acetaminophen-codeine 300-30 mg tablet 0.5 tab PO PRN PRN (Reason: Pain) Patient Comments: simvastatin 20 mg tablet 20 mg PO QPM Qty: 90 3RF amlodipine 5 mg tablet 5 mg PO QHS Qty: 90 4RF PreserVision AREDS 2,148 mcg-113 mg-45 mg-17.4mg tablet 2 tab PO BID Rx Instructions: administer with AM and PM meals azithromycin 250 mg tablet See Rx Instructions PO .COMPLEX Qty: 6 0RF Rx Instructions: take 500 mg today (day 1), then 250 mg for 4 days (days 2-5) PO benzonatate 100 mg capsule 200 mg PO TID PRN (Reason: cough) Qty: 30 0RF hydrochlorothiazide 12.5 MG capsule 12.5 mg PO DAILY Patient Comments: BLOOD PRESSURE oxybutynin chloride 5 MG tablet 5 mg PO PRN PRN (Reason: Bladder Spasm) Patient Comments: OVERACTIVE BLADDER aspirin 81 MG tablet,chewable 81 mg PO DAILY@0800 Patient Comments: [facility] Primary Care Provider: Carrie Vincent Referrals: Carrie Vincent MD [Primary Care Provider] - Abhi Brooks MD [Non-Staff -Ordering Privileges] - As Needed Disposition Disposition: Home, Self Care
--- OUTSIDE RECORDS SUMMARY | 2023-03-23 15:33 | XMS RPT_ITS | CCD ---
Author Name Unknown Address [address] [place] [address] Organization [facility] Care Team Providers Care Box Worker Name Role Phone Samantha Jones Unavailable Unavailable Sandy RN, Sommer Villegas Unavailable Unavailable Percy Vincent MD Primary Care Provider Percy Vincent MD Primary Care Provider Percy Vincent MD Primary Care Provider TALAMPAS, PERCY D Referring Unavailable TALAMPAS, PERCY D Primary Care Unavailable TALAMPAS, PERCY D Attending Unavailable YORDY, KENZIE Referring Unavailable TALAMPAS, PERCY D Primary Care Unavailable TALAMPAS, PERCY D Referring Unavailable TALAMPAS, PERCY D Primary Care Unavailable TALAMPAS, PERCY D Referring Unavailable TALAMPAS, PERCY D Primary Care Unavailable TALAMPAS, PERCY D Primary Care Unavailable TALAMPAS, PERCY D Referring Unavailable PEREZ, SAMANTHA Attending Unavailable TALAMPAS, PERCY D Primary Care Unavailable TALAMPAS, PERCY D Primary Care Unavailable TALAMPAS, PERCY D Attending Unavailable TALAMPAS, PERCY D Primary Care Unavailable TALAMPAS, PERCY D Referring Unavailable PEREZ, SAMANTHA Attending Unavailable TALAMPAS, PERCY D Primary Care Unavailable PEREZ, SAMANTHA Referring Unavailable TALAMPAS, PERCY D Primary Care Unavailable TALAMPAS, PERCY D Primary Care Unavailable TALAMPAS, PERCY D Referring Unavailable PEREZ, SAMANTHA Attending Unavailable TALAMPAS, PERCY D Primary Care Unavailable Allergies Allergy Classification Reported Allergen(s) Allergy Type Date of Onset Reaction(s) Facility (2 sources) MORPHINE DERIVATIVES drug allergy 05-13-2014 [facility] Work Phone: (20 sources) Morphine; Translations: [MORPHINE] Drug Allergy 10-06-2006 GI Upset [facility] Work Phone: Medications Completed/Discontinued Medications Medication Drug Class(es) Dates Sig (Normalized) Sig (Original) acetaminophen 300 mg / codeine phosphate 30 mg oral tablet (20 sources) Opioid Agonist Start: 04-18-2021 End: 11-08-2022 take 0.5-1 tablets by mouth every four hours as needed for pain acetaminophen-codein e (TYLENOL-COD #3) 300-30 mg per tablet Indications: Chronic pain of both knees , Primary osteoarthritis of both knees , Greater trochanteric pain syndrome of left lower extremity Take 0.5-1 tablets by mouth every 4 hours as needed for pain (For back pain) for up to 7 days. 42 tablet 0 04/25/2022 11/08/2022 Discontinued Problems Active Problems Problem Classification Problem Date Documented Da te Episodic/Chronic Abdominal pain (1 source) Left lower quadrant pain; Translations: [Left lower quadrant pain] Episodic Cancer of bladder (5 sources) H/O: malignant neoplasm; Translations: [Personal history of malignant neoplasm of bladder] Onset: 3 12-06-2022 Episodic Coronary atherosclerosis and other heart disease (20 sources) Atherosclerotic heart disease of tribal coronary artery without angina pectoris; Translations: [Coronary arteriosclerosis] Onset: 5 05-25-2014 Chronic Diabetes mellitus without complication (2 sources) Increased glucose level; Translations: [Other abnormal glucose] Onset: 3 11-08-2022 Episodic Disorders of lipid metabolism (20 sources) Hypercholesterolemia; Translations: [Hyperlipidemia] Onset: 5 05-13-2014 Chronic Esophageal disorders (20 sources) Gastroesophageal reflux disease; Translations: [Gastro-esophageal reflux disease without esophagitis] Onset: 5 05-13-2014 Chronic Essential hypertension (20 sources) Benign hypertension; Translations: [Hypertensive disorder] Onset: 5 05-13-2014 Chronic Fluid and electrolyte disorders (1 source) Hypokalemia; Translations: [Hypokalemia] 12-06-2022 Episodic Menopausal disorders (20 sources) Atrophic vaginitis; Translations: [Postmenopausal atrophic vaginitis] Onset: 7 10-06-2006 Chronic Occlusion or stenosis of precerebral arteries (2 sources) Occlusion and stenosis of unspecified carotid artery; Translations: [Occlusion and stenosis of unspecified carotid artery] Onset: 5 05-13-2014 Chronic Osteoarthritis (3 sources) Primary gonarthrosis, bilateral; Translations: [Bilateral primary osteoarthritis of knee] Chronic Other bone disease and musculoskeletal deformities (1 source) Osteopenia; Translations: [Other specified disorders of bone density and structure, unspecified site] 11-08-2022 Episodic Other gastrointestinal disorders (1 source) Constipation; Translations: [Constipation, unspecified] Episodic Other lower respiratory disease (1 source) Cough; Translations: [Acute cough] Episodic Other non-traumatic joint disorders (3 sources) Pain in right knee; Translations: [Pain in joint, lower leg] Episodic Other non-traumatic joint disorders (3 sources) Greater trochanteric pain syndrome of left lower limb; Translations: [Pain in left hip] Episodic Other screening for suspected conditions (not mental disorders or infectious disease) (12 sources) Patient encounter status; Translations: [Encounter for screening mammogram for malignant neoplasm of breast] Onset: 2 Episodic Spondylosis; intervertebral disc disorders; other back problems (1 source) Chronic low back pain; Translations: [Chronic midline low back pain without sciatica] 12-09-2022 Episodic Thyroid disorders (5 sources) Thyroid nodule; Translations: [Nontoxic single thyroid nodule] Onset: 3 Chronic Unclassified (2 sources) Long-term drug therapy; Translations: [Long-term (current) use of other medications] Onset: 5 05-25-2014 Unclassified (1 source) Dense breasts; Translations: [Dense breasts] Onset: 3 Unclassified (1 source) Acute cough; Translations: [Acute cough] Onset: 3 Varicose veins of lower extremity (1 source) Pain co-occurrent and due to varicose veins of left leg; Translations: [Varicose veins of left lower extremity with pain] 12-09-2022 Episodic Past or Other Problems Problem Classification Problem Date Documented Da te Episodic/Chronic Nonspecific chest pain (4 sources) Chest pain, unspecified; Translations: [Chest pain, unspecified] Onset: 05-13-2014 Resolved: 05-30-2015 05-30-2015 Episodic Other aftercare (1 source) Encounter for therapeutic drug level monitoring; Translations: [Encounter for therapeutic drug monitoring] Onset: 04-11-2022 Episodic Other upper respiratory infections (2 sources) Nasal discharge; Translations: [Postnasal drip] Onset: 06-27-2022 Episodic Unclassified (4 sources) Body mass index (BMI) 26.0-26.9, adult; Translations: [Family history of ischemic heart disease] Onset: 05-13-2014 06-13-2014 Episodic Results Test Name Value Interpretation Reference Range Facil ity Vital Signs Date Time Vital Sign Value Performing Clinician Facility 12-09-2022 10:20-0400 Body weight 70.31 kg Samantha Perez ASSEMBLY LEADER.NA[employer]YSTEMS ENGINEER Work Phone: [facility] 12-09-2022 10:20-0400 Diastolic blood pressure 77 mm[Hg] Samantha Perez ASSEMBLY LEADER.NANOSYSTEMS ENGINEER Work Phone: [facility] 12-09-2022 10:20-0400 Heart rate 98 /min Samantha Perez ASSEMBLY LEADER.NANOSYSTEMS ENGINEER Work Phone: [facility] 12-09-2022 10:20-0400 Respiratory rate 16 /min Samantha Perez ASSEMBLY LEADER.NANOSYSTEMS ENGINEER Work Phone: [facility] 12-09-2022 10:20-0400 Systolic blood pressure 121 mm[Hg] Samantha Perez ASSEMBLY LEADER.NANOSYSTEMS ENGINEER Work Phone: [facility] 11-08-2022 13:05-0400 Body weight 70.76 kg Percy Vincent MD Work Phone: [facility] 11-08-2022 13:05-0400 Diastolic blood pressure 76 mm[Hg] Percy Vincent MD Work Phone: [facility] 11-08-2022 13:05-0400 Heart rate 84 /min Percy Vincent MD Work Phone: [facility] 11-08-2022 13:05-0400 Respiratory rate 16 /min Percy Vincent MD Work Phone: [facility] 11-08-2022 13:05-0400 Systolic blood pressure 124 mm[Hg] Percy Vincent MD Work Phone: [facility] 06-27-2022 10:55-0400 Body weight 71.67 kg Samantha Perez ASSEMBLY LEADER.NANOSYSTEMS ENGINEER Work Phone: [facility] 06-27-2022 10:55-0400 Diastolic blood pressure 72 mm[Hg] Samantha Perez ASSEMBLY LEADER.NANOSYSTEMS ENGINEER Work Phone: [facility] 06-27-2022 10:55-0400 Heart rate 86 /min Samantha Perez ASSEMBLY LEADER.NANOSYSTEMS ENGINEER Work Phone: [facility] 06-27-2022 10:55-0400 Respiratory rate 16 /min Samantha Perez ASSEMBLY LEADER.NANOSYSTEMS ENGINEER Work Phone: [facility] 06-27-2022 10:55-0400 SaO2% (BldA) [Mass fraction] 98 % Samantha Perez ASSEMBLY LEADER.NANOSYSTEMS ENGINEER Work Phone: [facility] 06-27-2022 10:55-0400 Systolic blood pressure 112 mm[Hg] Samantha Perez ASSEMBLY LEADER.NANOSYSTEMS ENGINEER Work Phone: [facility] 06-13-2022 14:59-0400 Body weight 71.22 kg Samantha Perez ASSEMBLY LEADER.NANOSYSTEMS ENGINEER Work Phone: [facility] 06-13-2022 14:59-0400 Diastolic blood pressure 70 mm[Hg] Samantha Perez ASSEMBLY LEADER.NANOSYSTEMS ENGINEER Work Phone: [facility] 06-13-2022 14:59-0400 Heart rate 92 /min Samantha Perez ASSEMBLY LEADER.NANOSYSTEMS ENGINEER Work Phone: [facility] 06-13-2022 14:59-0400 Respiratory rate 16 /min Samantha Perez ASSEMBLY LEADER.NANOSYSTEMS ENGINEER Work Phone: [facility] 06-13-2022 14:59-0400 SaO2% (BldA) [Mass fraction] 99 % Samantha Perez ASSEMBLY LEADER.NANOSYSTEMS ENGINEER Work Phone: [facility] 06-13-2022 14:59-0400 Systolic blood pressure 110 mm[Hg] Samantha Perez APRN.NANOSYSTEMS ENGINEER Work Phone: [facility] 10-26-2021 13:47-0400 Body height 158.8 cm Percy Vincent MD Work Phone: [facility] 10-26-2021 13:47-0400 Body weight 69.85 kg Percy Vincent MD Work Phone: [facility] 10-26-2021 13:47-0400 Diastolic blood pressure 82 mm[Hg] Percy Vincent MD Work Phone: [facility] 10-26-2021 13:47-0400 Heart rate 87 /min Percy Vincent MD Work Phone: [facility] 10-26-2021 13:47-0400 SaO2% (BldA) [Mass fraction] 96 % Percy Vincent MD Work Phone: [facility] 10-26-2021 13:47-0400 Systolic blood pressure 128 mm[Hg] Percy Vincent MD Work Phone: [facility] 05-23-2021 14:00-0400 Body height 160 cm Kamila Navarro MD Work Phone: [facility] 05-23-2021 14:00-0400 Body temperature 98.71 [degF] Kamila Navarro MD Work Phone: [facility] 05-23-2021 14:00-0400 Body weight 69.85 kg Kamila Navarro MD Work Phone: [facility] 05-23-2021 14:00-0400 Diastolic blood pressure 66 mm[Hg] Kamila Navarro MD Work Phone: [facility] 05-23-2021 14:00-0400 Heart rate 102 /min Kamila Navarro MD Work Phone: [facility] 05-23-2021 14:00-0400 SaO2% (BldA) [Mass fraction] 99 % Kamila Navarro MD Work Phone: [facility] 05-23-2021 14:00-0400 Systolic blood pressure 102 mm[Hg] Kamila Navarro MD Work Phone: [facility] 05-08-2021 10:12-0400 Body temperature 98.29 [degF] Krishna Chowdhury MD Work Phone: [facility] 05-08-2021 10:12-0400 Body weight 68.49 kg Krishna Chowdhury MD Work Phone: [facility] 05-08-2021 10:12-0400 Diastolic blood pressure 78 mm[Hg] Krishna Chowdhury MD Work Phone: [facility] 05-08-2021 10:12-0400 Heart rate 92 /min Krishna Chowdhury MD Work Phone: [facility] 05-08-2021 10:12-0400 Respiratory rate 16 /min Krishna Chowdhury MD Work Phone: [facility] 05-08-2021 10:12-0400 Systolic blood pressure 120 mm[Hg] Krishna Chowdhury MD Work Phone: [facility] 01-13-2017 13:48-0500 BMI (Body Mass Index) 26.26 kg/m2 [facility] Work Phone: 01-13-2017 13:48-0500 BP Diastolic 70 mm[Hg] Samanthapalomo Jones [facility] Work Phone: 01-13-2017 13:48-0500 BP Systolic 120 mm[Hg] Samantha Jones [facility] Work Phone: 01-13-2017 13:48-0500 Height 162.56 cm Samantha Jones [facility] Work Phone: 01-13-2017 13:48-0500 Pulse (Heart Rate) 88 /min Samanthapalomo Jones [facility] Work Phone: 01-13-2017 13:48-0500 Respiratory Rate 16 /min Samanthapalomo Jones [facility] Work Phone: 01-13-2017 13:48-0500 Weight 69.4 kg Samantha Jones [facility] Work Phone: 06-20-2016 12:22-0400 BMI (Body Mass Index) 26.43 kg/m2 Sommer Delgado RN [facility] Work Phone: 06-20-2016 12:22-0400 BP Diastolic 86 mm[Hg] Sommer Delgado RN [facility] Work Phone: 06-20-2016 12:22-0400 BP Systolic 140 mm[Hg] Sommer Delgado RN [facility] Work Phone: 06-20-2016 12:22-0400 Height 162.56 cm Sommer Delgado RN [facility] Work Phone: 06-20-2016 12:22-0400 Pulse (Heart Rate) 68 /min Sommer Delgado RN [facility] Work Phone: 06-20-2016 12:22-0400 Respiratory Rate 18 /min Sommer Delgado RN [facility] Work Phone: 06-20-2016 12:22-0400 Weight 69.85 kg oSmmer Delgado RN [facility] Work Phone: 02-27-2016 14:32-0500 BSA (Body Surface Area) 1.74 m2 Sommer Delgado RN [facility] Work Phone: Encounters Encounter Date Encounter Type Care Provider Facility Start: 12-19-2022 Documentation procedure Mammog belen Coordinator [facility] Start: 12-19-2022 Letter encounter Mammography Coordinator [facility] Department Start: 12-19-2022 End: 12-19-2022 ambulatory PERCY VINCENT Facility:[facility] Start: 12-19-2022 End: 12-19-2022 Subsequent hospital visit by physician Screen Mammo [facility] Mammogram Procedures Date Procedure Procedure Detail Performing Clinician Start: 12-19-2022 Screening digital br east tomosynthesis bi Percy Vincent MD Work Phone: Start: 10-24-2022 Lipid 1996 panel - S edgar or Plasma Percy Vincent MD Work Phone: Start: 06-19-2022 Us soft tissue head & neck real time imge andrea Perez ASSEMBLY LEADER.NANOSYSTEMS ENGINEER Work Phone: Start: 01-29-2022 [facility] M[facility]EL[facility] W ROMI LEFT Li reuben Vincent MD Work Phone: Start: 12-18-2021 End: 12-18-2021 Mammography Bulk Order Provider Start: 09-29-2020 Adult depression scr eening assessment Krishna Chowdhury MD Work Phone: Start: 07-18-2020 Mammography Krishna Elias MD Work Phone: Start: 08-01-2017 Colonoscopy Krishna Elias MD Work Phone: Start: 01-13-2017 End: 01-13-2017 BRUNA Kelley MD Work Phone: Start: 01-13-2017 End: 01-13-2017 Follow Up Appt 6 months Abel Kelley MD Work Phone: Start: 06-20-2016 End: 12-25-2016 BRUNA Kelley MD Work Phone: Start: 06-20-2016 End: 12-25-2016 Follow Up Appt 6 months Abel Kelley MD Work Phone: Start: 02-27-2016 End: 02-27-2016 BRUNA Kelley MD Work Phone: Start: 02-27-2016 End: 02-27-2016 Follow Up Appt 4 months Abel Kelley MD Work Phone: Start: 06-06-2015 End: 06-06-2015 BRUNA Kelley MD Work Phone: Start: 06-06-2015 End: 06-06-2015 Follow Up Appt 1 year Haroldo Mart Work Phone: Start: 07-11-2014 End: 08-01-2014 *Hepatic Function Panel Abel Kelley MD Work Phone: Start: 07-11-2014 End: 08-01-2014 Lipid 1996 panel - Serum or Plasma Abel Kelley MD Work Phone: Start: 06-13-2014 End: 06-13-2014 BRUNA Kelley MD Work Phone: Start: 06-13-2014 End: 06-13-2014 Follow Up Appt 1 year Haroldo Mart Work Phone: Start: 05-16-2014 End: 05-19-2014 *BMP Abel Kelley MD Work Phone: Start: 05-16-2014 End: 05-19-2014 aPTT in Platelet poor plasma by Coagulation assay Abel Kelley MD Work Phone: Start: 05-16-2014 End: 05-25-2014 Chest x-ray Abel Kelley MD Work Phone: Start: 05-16-2014 End: 05-16-2014 BRUNA Kelley MD Work Phone: Start: 05-16-2014 End: 05-16-2014 Ecg routine ecg w/least 12 lds w/i&r Abel Kelley MD Work Phone: Start: 05-16-2014 End: 05-25-2014 Echocardiography Abel Kelley MD Work Phone: Start: 05-16-2014 End: 05-16-2014 Follow Up Appt 1 month Abel Kelley MD Work Phone: Start: 05-16-2014 End: 05-19-2014 INR in Platelet poor plasma by Coagulation assay Abel Kelley MD Work Phone: Start: 05-16-2014 End: 05-25-2014 Left Heart Cath Abel Kelley MD Work Phone: Plan of Treatment Date Care Activity Detail Author Start: 2027 Lipid 1996 panel - S edgar or Plasma Lipid Screening [facility] Start: 06-18-2027 LIPID SCREEN LIPID SCREEN [facility] Start: 10-11-2026 LIPID SCREEN LIPID SCREEN [facility] Start: 04-03-2026 LIPID SCREEN LIPID SCREEN [facility] Start: 10-24-2025 Diabetes Screening Diabetes Screenin g [facility] Start: 04-11-2025 DIABETES SCREEN DIABETES SCREEN [facility] Start: 10-11-2024 DIABETES SCREEN DIABETES SCREEN [facility] Start: 08-01-2024 Colonoscopy COLONOSCOPY [facility] Start: 08-01-2024 COLORECTAL CANCER SCREENING COLORECTAL CANCER SCREENING [facility] Start: 04-03-2024 DIABETES SCREEN DIABETES SCREEN [facility] Start: 12-10-2023 BP Controlled (<130/80) BP Controlle d (<130/80) [facility] Start: 11-09-2023 Annual PCP Team Crossing Guard pk Disease Visit Annual PCP Team Chronic Disease Visit [facility] Start: 11-09-2023 BP Controlled (<130/80) BP Controlle d (<130/80) [facility] Start: 11-09-2023 Covid-19 Vaccine ( season) Covid-19 Vaccine () [facility] Immunizations Immunization Date Immunization Notes Care Provider Fa elena 12-09-2022 zoster vaccine recombinant Screen Wstr [facility] 09-25-2022 hepatitis A and hepatitis B vaccine Percy Vincent MD Work Phone: [facility] Work Phone: 09-25-2022 influenza (HD-IIV4) vaccine, age 65+ yr, high dose, quadrivalent, PF (FLUZONE HIGH-DOSE) Samantha Perez ASSEMBLY LEADER.NANOSYSTEMS ENGINEER Work Phone: [facility] Work Phone: 09-25-2022 influenza, high dose seasonal, preservative-free Percy Vincent MD Work Phone: [facility] Work Phone: 09-25-2022 zoster vaccine recombinant Percy Vincent MD Work Phone: [facility] Work Phone: 01-24-2022 COVID-19 booster vaccine, age 12+ yr, bivalent (MODERNA) Percy Vincent MD Work Phone: [facility] Work Phone: 10-24-2021 influenza (HD-IIV4) vaccine, age 65+ yr, high dose, quadrivalent, PF (FLUZONE HIGH-DOSE) Percy Vincent MD Work Phone: [facility] 10-24-2021 influenza, high dose seasonal, preservative-free Percy Vincent MD Work Phone: [facility] Work Phone: 09-06-2021 COVID-19 vaccine, booster dose (MODERNA) Percy Vincent MD Work Phone: [facility] Work Phone: 11-06-2020 influenza (HD-IIV4) vaccine, age 65+ yr, high dose, quadrivalent, PF (FLUZONE HIGH-DOSE) Percy Vincent MD Work Phone: [facility] 11-06-2020 influenza, high dose seasonal, preservative-free Krishna Chowdhury MD Work Phone: [facility] Work Phone: 05-19-2020 COVID-19 vaccine, fu ll dose (MODERNA) Krishna Chowdhury MD Work Phone: [facility] Work Phone: 04-21-2020 COVID-19 vaccine, fu ll dose (MODERNA) Krishna Chowdhury MD Work Phone: [facility] Work Phone: 11-04-2019 influenza (aIIV4) vaccine, age 65+ yr, quadrivalent, PF (FLUAD QUAD) Percy Vincent MD Work Phone: [facility] 2019 influenza, high dose seasonal, preservative-free Krishna Chowdhury MD Work Phone: [facility] 11-05-2018 influenza, high dose seasonal, preservative-free Krishna Chowdhury MD Work Phone: [facility] Work Phone: 03-18-2018 pneumococcal polysaccharide vaccine, 23 valent Krishna Chowdhury MD Work Phone: [facility] 11-21-2017 influenza, high dose seasonal, preservative-free Krishna Chowdhury MD Work Phone: [facility] 12-17-2016 influenza, high dose seasonal, preservative-free Krishna Chowdhury MD Work Phone: [facility] 11-25-2016 influenza, high dose seasonal, preservative-free Percy Vincent MD Work Phone: [facility] 03-06-2016 pneumococcal conjuga te vaccine, 13 valent Krishna Chowdhury MD Work Phone: [facility] 10-12-2015 influenza, high dose seasonal, preservative-free Percy Vincent MD Work Phone: [facility] 12-09-2011 pneumococcal polysaccharide vaccine, 23 valent Krishna Chowdhury MD Work Phone: [facility] 09-17-2011 zoster vaccine, live Krishna Chowdhury MD Work Phone: [facility] Payers Date Payer Category Payer Medicare [id number] 2018 Unknown [id number] 2018 Unknown [id number] 2012 [id number] 2012 Medicare [id number] 2012 Medicare [id number] Social History Date Type Detail Facility Start: 09-01-2015 End: 10-26-2021 Tobacco smoking status NHIS Ex-smoker [facility] History of tobacco use Cigarette Smoker [facility] Start: 09-01-2015 End: 06-27-2022 Cigarettes smoked current (pack per day) - Reported 1 [facility] Work Phone: Start: 09-01-2015 End: 10-26-2021 Tobacco use and exposure Smokeless tobacco non-user [facility] Start: 05-08-2021 End: 12-13-2021 Alcohol intake Current non-drinker of alcohol (finding) [facility] Start: 1945 Sex Assigned At Not on file [facility] Start: 04-28-2021 End: 12-18-2021 Exposure to SARS-CoV-2 (event) Not sure [facility] Work Phone: History of tobacco use Current smoker [facility] Start: 04-19-2022 End: 12-09-2022 Alcohol intake Current drinker of alcohol (finding) [facility] Start: 04-19-2022 Alcohol Comment 3-4 beers on t he weekends [facility] Start: 04-19-2022 End: 06-27-2022 Tobacco use panel [facility] Work Phone: Adult Depression Screening Assessment 0 [facility] Work Phone: Clinical Notes 05-08-2021 to 12-19-2022 Letter - Coordinator, Mammography - 12/19/2022 1:58 PM EDTPatient Samantha Eden APRN.NANOSYSTEMS ENGINEER - 12/09/2022 9:53 AM Percy Doran MD - 11/08/2022 1:14 PM EDTPatient Instructions Note Date & Type Note Facility 12-19-2022 Miscellaneous Notes December 20, 2022 PID: [id number] Maryuri Martinez [address] [place] [address] Dear Ms. Martinez, We are pleased to inform you that the results of your recent breast imaging exam on 12/19/2022 are normal. Your mammogram demonstrates that you have dense breast tissue, which could hide abnormalities. Dense breast tissue, in and of itself, is a relatively common condition. Therefore, this information is not provided to cause undue concern; rather, it is to raise your awareness and promote discussion with your health care provider regarding the presence of dense breast tissue in addition to other risk factors. Early detection of cancer is very important. We also understand recommendations regarding breast cancer screening are controversial. Please discuss with your primary care provider which strategy is best for you and whether a mammogram is right for you. Your imaging studies and report will be kept on file at [facility] as part of your permanent medical record and are available for your continuing care. Thank you for allowing us to help in meeting your health care needs. Sincerely, Dr. Chambers Interpreting Radiologist [facility] (Normal over 40) documented in this encounter [facility] 12-09-2022 Note HNO ID: [id number] Author: Samantha Perez APRN.NANOSYSTEMS ENGINEER Service: ? Author Type: Nurse Specialist Type: Progress Notes Filed: 12/09/2022 11:03 AM Note Text: SUBJECTIVE: RSV Vaccine(1 - 1-dose 60+ series) Never done Shingrix Vaccine(3 of 3) due on 11/20/2022 HPI Maryuri Martinez is a 77 year old female. PMH significant for ACTIVE PROBLEM LIST Postmenopausal Atrophic Vaginitis Hyperlipidemia Htn (Hypertension) Gerd (Gastroesophageal Reflux Disease) Cad (Coronary Artery Disease) History of Bladder Cancer Presents today for recheck of her leg. She reports chronic low back pain without radiation. Midline or left sciatic area. She reports previously advised she needs a left knee replacement but has deferred this. She reports no pain in the left knee. She reports left calf pain with prominent varicosities in the left leg at times. Notes that this has bothered her 1 time at night. She reports prior vein injection. She reports prior physical therapy and chiropractic for back pain which has been helpful. Prefers to stick with Tylenol for pain. Review of Systems Musculoskeletal: Positive for arthralgias, back pain and myalgias. Objective BP 121/77 Pulse 98 Resp 16 Wt 70.3 kg (155 lb) BMI 27.90 kg/m? Physical Exam Vitals and nursing note reviewed. Constitutional: Appearance: Normal appearance. HENT: Head: Normocephalic and atraumatic. Eyes: Conjunctiva/sclera: Conjunctivae normal. Neck: Thyroid: No thyromegaly or thyroid tenderness. Cardiovascular: Rate and Rhythm: Normal rate and regular rhythm. Pulses: Dorsalis pedis pulses are 2+ on the left side. Comments: +varicosities LLE Pulmonary: Effort: Pulmonary effort is normal. Breath sounds: Normal breath sounds. Musculoskeletal: Lumbar back: No spasms, tenderness or bony tenderness. Decreased range of motion. Scoliosis present. Left hip: No bony tenderness. Left knee: No bony tenderness or crepitus. No tenderness. Right lower leg: No edema. Left lower leg: No edema. Skin: General: Skin is warm and dry. Neurological: Mental Status: She is alert. ALLERGIES Allergen Reactions Morphine GI Upset Medication COLLAGEN MISC simvastatin (ZOCOR) 20 mg tablet Take 1 tablet by mouth once daily. (from cardiology) cetirizine (ZYRTEC) 10 mg tablet Take 1 tablet by mouth once daily. esomeprazole (NEXIUM) 20 mg capsule Take 2 capsules by mouth once daily. As directed hydroCHLOROthiazide 12.5 mg capsule Take 1 capsule by mouth once daily. glucosamine/chondr arora A sod (OSTEO BI-FLEX ORAL) Take by mouth. amLODIPine (NORVASC) 5 mg tablet Take 5 mg by mouth once daily. aspirin, enteric coated (ASPIRIN, ENTERIC COATED) 81 mg EC tablet Take 81 mg by mouth once daily. imipramine HCl (TOFRANIL) 25 mg tablet Take 25 mg by mouth as needed. Take 1 tablet as needed at bedtime. oxybutynin (DITROPAN) 5 mg tablet Take 5 mg by mouth as needed. acetaminophen-codeine (TYLENOL-COD #3) 300-30 mg per tablet Take 0.5-1 tablets by mouth every 4 hours as needed for pain (For back pain) for up to 7 days. PAST MEDICAL HISTORY Diagnosis Date CAD (coronary artery disease) Dr. Kelley; sounds like has blockage with collaterals GERD (gastroesophageal reflux disease) History of bladder cancer ~2008 Dr. Cadena; yearly cystoscopy HTN (hypertension) Hyperlipidemia IBS (irritable bowel syndrome) swings back and forth with diarrhea and constipation Social History Tobacco Use Smoking status: Former Packs/day: 1.00 Years: 35.00 Additional pack years: 0.00 Total pack years: 35.00 Types: Cigarettes Smokeless tobacco: Never Vaping Use Vaping Use: Never used Substance Use Topics Alcohol use: Yes Comment: 3-4 beers on the weekends Drug use: Never ASSESSMENT/PLAN: 1. Varicose veins of left lower extremity with pain - ICD9: 454.8, ICD10: I83.812 (primary diagnosis) - CONSULT TO VASCULAR MEDICINE 2. Chronic midline low back pain without sciatica - ICD9: 724.2, 338.29, ICD10: M54.50, G89.29 - CONSULT TO PHYSICAL THERAPY - CONSULT TO CHIROPRACTOR Advised: For the varicose veins in left leg: Wear compression socks or stockings when sitting or standing for prolonged periods of time Elevate your feet when seated Consider seeing a vascular physician. For low back pain consider seeing physical therapy. Deferred extension service specialist in charge referral Okay to see chiropractor as well if you would like. - interested in this Declined medication Consider getting RSV vaccine and shingles vaccine at your local pharmacy Samantha Perez APRN.CNS Medical Decision Making: Problems: Moderate: 1+ chronic illnesses with change Risk: Moderate: Drug management Medical Decision Making Level: 4 - Moderate [facility] 12-09-2022 Instructions Samantha Perez APRN.CNS - 12/09/2022 10:51 AM EDT For the varicose veins in your left leg: Wear compression socks or stockings when sitting or standing for prolonged periods of time Elevate your feet when seated Consider seeing a vascular physician. For low back pain consider seeing physical therapy. Okay to see chiropractor as well if you would like. Consider getting RSV vaccine and shingles vaccine at your local pharmacy documented in this encounter [facility] 12-09-2022 History of Present illness Narrative SUBJECTIVE: RSV Vaccine(1 - 1-dose 60+ series) Never done Shingrix Vaccine(3 of 3) due on 11/20/2022 PAMELA Martinez is a 77 year old female. PMH significant for ACTIVE PROBLEM LIST Postmenopausal Atrophic Vaginitis Hyperlipidemia Htn (Hypertension) Gerd (Gastroesophageal Reflux Disease) Cad (Coronary Artery Disease) History of Bladder Cancer Presents today for recheck of her leg. She reports chronic low back pain without radiation. Midline or left sciatic area. She reports previously advised she needs a left knee replacement but has deferred this. She reports no pain in the left knee. She reports left calf pain with prominent varicosities in the left leg at times. Notes that this has bothered her 1 time at night. She reports prior vein injection. She reports prior physical therapy and chiropractic for back pain which has been helpful. Prefers to stick with Tylenol for pain. Review of Systems Musculoskeletal: Positive for arthralgias, back pain and myalgias. Objective BP 121/77 Pulse 98 Resp 16 Wt 70.3 kg (155 lb) BMI 27.90 kg/m Physical Exam Vitals and nursing note reviewed. Constitutional: Appearance: Normal appearance. HENT: Head: Normocephalic and atraumatic. Eyes: Conjunctiva/sclera: Conjunctivae normal. Neck: Thyroid: No thyromegaly or thyroid tenderness. Cardiovascular: Rate and Rhythm: Normal rate and regular rhythm. Pulses: Dorsalis pedis pulses are 2+ on the left side. Comments: +varicosities LLE Pulmonary: Effort: Pulmonary effort is normal. Breath sounds: Normal breath sounds. Musculoskeletal: Lumbar back: No spasms, tenderness or bony tenderness. Decreased range of motion. Scoliosis present. Left hip: No bony tenderness. Left knee: No bony tenderness or crepitus. No tenderness. Right lower leg: No edema. Left lower leg: No edema. Skin: General: Skin is warm and dry. Neurological: Mental Status: She is alert. ALLERGIES Allergen Reactions Morphine GI Upset Medication COLLAGEN MISC simvastatin (ZOCOR) 20 mg tablet Take 1 tablet by mouth once daily. (from cardiology) cetirizine (ZYRTEC) 10 mg tablet Take 1 tablet by mouth once daily. esomeprazole (NEXIUM) 20 mg capsule Take 2 capsules by mouth once daily. As directed hydroCHLOROthiazide 12.5 mg capsule Take 1 capsule by mouth once daily. glucosamine/chondr arora A sod (OSTEO BI-FLEX ORAL) Take by mouth. amLODIPine (NORVASC) 5 mg tablet Take 5 mg by mouth once daily. aspirin, enteric coated (ASPIRIN, ENTERIC COATED) 81 mg EC tablet Take 81 mg by mouth once daily. imipramine HCl (TOFRANIL) 25 mg tablet Take 25 mg by mouth as needed. Take 1 tablet as needed at bedtime. oxybutynin (DITROPAN) 5 mg tablet Take 5 mg by mouth as needed. acetaminophen-codeine (TYLENOL-COD #3) 300-30 mg per tablet Take 0.5-1 tablets by mouth every 4 hours as needed for pain (For back pain) for up to 7 days. PAST MEDICAL HISTORY Diagnosis Date CAD (coronary artery disease) Dr. Kelley; sounds like has blockage with collaterals GERD (gastroesophageal reflux disease) History of bladder cancer ~2008 Dr. Cadena; yearly cystoscopy HTN (hypertension) Hyperlipidemia IBS (irritable bowel syndrome) swings back and forth with diarrhea and constipation Social History Tobacco Use Smoking status: Former Packs/day: 1.00 Years: 35.00 Additional pack years: 0.00 Total pack years: 35.00 Types: Cigarettes Smokeless tobacco: Never Vaping Use Vaping Use: Never used Substance Use Topics Alcohol use: Yes Comment: 3-4 beers on the weekends Drug use: Never ASSESSMENT/PLAN: 1. Varicose veins of left lower extremity with pain - ICD9: 454.8, ICD10: I83.812 (primary diagnosis) - CONSULT TO VASCULAR MEDICINE 2. Chronic midline low back pain without sciatica - ICD9: 724.2, 338.29, ICD10: M54.50, G89.29 - CONSULT TO PHYSICAL THERAPY - CONSULT TO CHIROPRACTOR Advised: For the varicose veins in left leg: Wear compression socks or stockings when sitting or standing for prolonged periods of time Elevate your feet when seated Consider seeing a vascular physician. For low back pain consider seeing physical therapy. Deferred extension service specialist in charge referral Okay to see chiropractor as well if you would like. - interested in this Declined medication Consider getting RSV vaccine and shingles vaccine at your local pharmacy Samantha Perez APRN.CNS Medical Decision Making: Problems: Moderate: 1+ chronic illnesses with change Risk: Moderate: Drug management Medical Decision Making Level: 4 - Moderate documented in this encounter [facility] 11-08-2022 Note HNO ID: [id number] Author: Percy Vincent MD Service: ? Author Type: Physician Type: Progress Notes Filed: 12/06/2022 11:19 PM Note Text: This note was created using NoteWriter. Subjective Maryuri A Juan is a 77 year old female. HISTORY Maryuri Martinez is a 77 year old lady here for yearly exam and follow up appointment. Noted that billed for depression screening. This was part of a regular check up, not Medicare Wellness. Still getting pain in left pain in lateral calves at night. Does get leg swelling sometimes. Has some superficial varicose veins again (sclerotherapy done about 40 years ago). Collagen tried to help with joints skin better. Has been dry. Follows with Dr. Hallman. Does not like many veggies. Had COVID 2 years ago. Had 5 vaccines. Taste did come back about 6 months ago. Not able to smell as well. Also had mono with hepatitis and yellow jaundice. Gets gel shots in knees. Gets around well. Has been getting shots for years. Has been offered TKA but she does not feels she needs surgery. Noted that right side mid back pain sometimes. Side that is more prominent. Reviewed that has scoliosis--prior jose f reviewed. PAST MEDICAL HISTORY Diagnosis Date CAD (coronary artery disease) Dr. Kelley; sounds like has blockage with collaterals GERD (gastroesophageal reflux disease) History of bladder cancer ~2008 Dr. Cadena; yearly cystoscopy HTN (hypertension) Hyperlipidemia IBS (irritable bowel syndrome) swings back and forth with diarrhea and constipation Current Outpatient Medications Medication Sig cetirizine (ZYRTEC) 10 mg tablet Take 1 tablet by mouth once daily. esomeprazole (NEXIUM) 20 mg capsule Take 2 capsules by mouth once daily. As directed acetaminophen-codeine (TYLENOL-COD #3) 300-30 mg per tablet Take 0.5-1 tablets by mouth every 4 hours as needed for pain (For back pain) for up to 7 days. hydroCHLOROthiazide 12.5 mg capsule Take 1 capsule by mouth once daily. simvastatin (ZOCOR) 40 mg tablet Take 1 tablet by mouth once daily. (Patient taking differently: Take 20 mg by mouth once daily.) glucosamine/chondr arora A sod (OSTEO BI-FLEX ORAL) Take by mouth. amLODIPine (NORVASC) 5 mg tablet Take 5 mg by mouth once daily. aspirin, enteric coated (ASPIRIN, ENTERIC COATED) 81 mg EC tablet Take 81 mg by mouth once daily. imipramine HCl (TOFRANIL) 25 mg tablet Take 25 mg by mouth as needed. Take 1 tablet as needed at bedtime. oxybutynin (DITROPAN) 5 mg tablet Take 5 mg by mouth as needed. No current facility-administered medications for this visit. ALLERGIES Allergen Reactions Morphine GI Upset FAMILY HISTORY Problem Relation Age of Onset Lung Cancer Mother Heart Father Cancer Father prostate/skin Social History Tobacco Use Smoking status: Former Packs/day: 1.00 Years: 35.00 Additional pack years: 0.00 Total pack years: 35.00 Types: Cigarettes Smokeless tobacco: Never Vaping Use Vaping Use: Never used Substance Use Topics Alcohol use: Yes Comment: 3-4 beers on the weekends Drug use: Never Review of Systems Objective BP 124/76 (BP Site: Left Arm, BP Position: Sitting, BP Cuff Size: Regular Adult) Pulse 84 Resp 16 Wt 70.8 kg (156 lb) BMI 28.08 kg/m? Last 5 Encounter Wt Readings: Date: Wt: 11/08/2022 70.8 kg (156 lb) 06/27/2022 71.7 kg (158 lb) 06/13/2022 71.2 kg (157 lb) 04/19/2022 70.3 kg (155 lb) 10/26/2021 69.9 kg (154 lb) No waist measurement recorded Estimated body mass index is 28.08 kg/m? as calculated from the following: Height as of 10/26/21: 158.8 cm (5' 2.5 ). Weight as of this encounter: 70.8 kg (156 lb). Last 5 Encounter BP Readings: Date: BP: 11/08/2022 124/76 06/27/2022 112/72 06/13/2022 110/70 04/19/2022 122/74 10/26/2021 128/82 Physical Exam Vitals reviewed. Constitutional: Appearance: She is well-developed. HENT: Head: Normocephalic and atraumatic. Right Ear: External ear normal. Left Ear: External ear normal. Nose: Nose normal. Eyes: Conjunctiva/sclera: Conjunctivae normal. Neck: Thyroid: No thyromegaly. Cardiovascular: Rate and Rhythm: Normal rate and regular rhythm. Pulses: Normal pulses. Heart sounds: Normal heart sounds. No murmur heard. No friction rub. No gallop. Pulmonary: Effort: Pulmonary effort is normal. Breath sounds: Normal breath sounds. Abdominal: General: Bowel sounds are normal. There is no distension. Palpations: Abdomen is soft. There is no mass. Tenderness: There is no abdominal tenderness. Musculoskeletal: General: No deformity. Normal range of motion. Comments: Scoliosis noted with prominence on right side Lymphadenopathy: Cervical: No cervical adenopathy. Skin: General: Skin is warm and dry. Coloration: Skin is not jaundiced or pale. Findings: No rash. Neurological: General: No focal deficit present. Mental Status: She is alert and oriented to person, place, and time. Crani (more content not included)... [facility] 11-08-2022 History of Present illness Narrative This note was created using BioNitrogenter. Subjective Maryuri Martinez is a 77 year old female. HISTORY Maryuri Martinez is a 77 year old lady here for yearly exam and follow up appointment. Noted that billed for depression screening. This was part of a regular check up, not Medicare Wellness. Still getting pain in left pain in lateral calves at night. Does get leg swelling sometimes. Has some superficial varicose veins again (sclerotherapy done about 40 years ago). Collagen tried to help with joints skin better. Has been dry. Follows with Dr. Hallman. Does not like many veggies. Had COVID 2 years ago. Had 5 vaccines. Taste did come back about 6 months ago. Not able to smell as well. Also had mono with hepatitis and yellow jaundice. Gets gel shots in knees. Gets around well. Has been getting shots for years. Has been offered TKA but she does not feels she needs surgery. Noted that right side mid back pain sometimes. Side that is more prominent. Reviewed that has scoliosis--prior jose f reviewed. PAST MEDICAL HISTORY Diagnosis Date CAD (coronary artery disease) Dr. Kelley; sounds like has blockage with collaterals GERD (gastroesophageal reflux disease) History of bladder cancer ~2008 Dr. Cadena; yearly cystoscopy HTN (hypertension) Hyperlipidemia IBS (irritable bowel syndrome) swings back and forth with diarrhea and constipation Current Outpatient Medications Medication Sig cetirizine (ZYRTEC) 10 mg tablet Take 1 tablet by mouth once daily. esomeprazole (NEXIUM) 20 mg capsule Take 2 capsules by mouth once daily. As directed acetaminophen-codeine (TYLENOL-COD #3) 300-30 mg per tablet Take 0.5-1 tablets by mouth every 4 hours as needed for pain (For back pain) for up to 7 days. hydroCHLOROthiazide 12.5 mg capsule Take 1 capsule by mouth once daily. simvastatin (ZOCOR) 40 mg tablet Take 1 tablet by mouth once daily. (Patient taking differently: Take 20 mg by mouth once daily.) glucosamine/chondr arora A sod (OSTEO BI-FLEX ORAL) Take by mouth. amLODIPine (NORVASC) 5 mg tablet Take 5 mg by mouth once daily. aspirin, enteric coated (ASPIRIN, ENTERIC COATED) 81 mg EC tablet Take 81 mg by mouth once daily. imipramine HCl (TOFRANIL) 25 mg tablet Take 25 mg by mouth as needed. Take 1 tablet as needed at bedtime. oxybutynin (DITROPAN) 5 mg tablet Take 5 mg by mouth as needed. No current facility-administered medications for this visit. ALLERGIES Allergen Reactions Morphine GI Upset FAMILY HISTORY Problem Relation Age of Onset Lung Cancer Mother Heart Father Cancer Father prostate/skin Social History Tobacco Use Smoking status: Former Packs/day: 1.00 Years: 35.00 Additional pack years: 0.00 Total pack years: 35.00 Types: Cigarettes Smokeless tobacco: Never Vaping Use Vaping Use: Never used Substance Use Topics Alcohol use: Yes Comment: 3-4 beers on the weekends Drug use: Never Review of Systems Objective BP 124/76 (BP Site: Left Arm, BP Position: Sitting, BP Cuff Size: Regular Adult) Pulse 84 Resp 16 Wt 70.8 kg (156 lb) BMI 28.08 kg/m Last 5 Encounter Wt Readings: Date: Wt: 11/08/2022 70.8 kg (156 lb) 06/27/2022 71.7 kg (158 lb) 06/13/2022 71.2 kg (157 lb) 04/19/2022 70.3 kg (155 lb) 10/26/2021 69.9 kg (154 lb) No waist measurement recorded Estimated body mass index is 28.08 kg/m as calculated from the following: Height as of 10/26/21: 158.8 cm (5' 2.5 ). Weight as of this encounter: 70.8 kg (156 lb). Last 5 Encounter BP Readings: Date: BP: 11/08/2022 124/76 06/27/2022 112/72 06/13/2022 110/70 04/19/2022 122/74 10/26/2021 128/82 Physical Exam Vitals reviewed. Constitutional: Appearance: She is well-developed. HENT: Head: Normocephalic and atraumatic. Right Ear: External ear normal. Left Ear: External ear normal. Nose: Nose normal. Eyes: Conjunctiva/sclera: Conjunctivae normal. Neck: Thyroid: No thyromegaly. Cardiovascular: Rate and Rhythm: Normal rate and regular rhythm. Pulses: Normal pulses. Heart sounds: Normal heart sounds. No murmur heard. No friction rub. No gallop. Pulmonary: Effort: Pulmonary effort is normal. Breath sounds: Normal breath sounds. Abdominal: General: Bowel sounds are normal. There is no distension. Palpations: Abdomen is soft. There is no mass. Tenderness: There is no abdominal tenderness. Musculoskeletal: General: No deformity. Normal range of motion. Comments: Scoliosis noted with prominence on right side Lymphadenopathy: Cervical: No cervical adenopathy. Skin: General: Skin is warm and dry. Coloration: Skin is not jaundiced or pale. Findings: No rash. Neurological: General: No focal deficit present. Mental Status: She is alert and oriented to person, place, and time. Cranial Nerves: No cranial nerve deficit. Sensory: No sensory deficit. Motor: No abnormal muscle tone. Coordination: Coordination normal. Deep Tendon Reflexes: Reflexes normal. Psychiatric: Mood and Affect: Mood normal. Behavior: Behavior normal. Thought Content: Thought content normal. Judgment: Judgment normal. Component Latest Ref Rng & Units 10/11/2021 04/11/2022 06/17/2022 10/24/2022 Protein, Total 6.3 - 8.0 g/dL 7.1 6.8 6.8 Albumin 3.9 - 4.9 g/dL 4.6 4.3 4.6 Calcium 8.5 - 10.2 mg/dL 9.0 9.2 9.2 Bilirubin, Total 0.2 - 1.3 mg/dL 0.7 0.9 0.7 Alkaline Phosphatase 34 - 123 U/L 96 92 93 AST 13 - 35 U/L 17 14 13 ALT 7 - 38 U/L 7 <5 (L) 5 (L) Glucose 74 - 99 mg/dL 104 (H) 104 (H) 97 BUN 7 - 21 mg/dL 18 17 16 Creatinine 0.58 - 0.96 mg/dL 0.85 0.93 0.87 Sodium 136 - 144 mmol/L 139 140 139 Potassium 3.7 - 5.1 mmol/L 3.5 (L) 4.0 3.6 (L) Chloride 97 - 105 mmol/L 102 100 102 CO2 22 - 30 mmol/L 24 28 26 Anion Gap 9 - 18 mmol/L 13 12 11 eGFR >=60 mL/min/1.73m 72 65 70 WBC 3.70 - 11.00 k/uL 6.50 6.11 4.88 RBC 3.90 - 5.20 m/uL 3.77 (L) 3.92 3.62 (L) Hemoglobin 11.5 - 15.5 g/dL 12.8 13.2 12.3 Hematocrit 36.0 - 46.0 % 36.9 37.5 35.9 (L) MCV 80.0 - 100.0 fL 97.9 95.7 99.2 MCH 26.0 - 34.0 pg 34.0 33.7 34.0 MCHC 30.5 - 36.0 g/dL 34.7 35.2 34.3 RDW-CV 11.5 - 15.0 % 13.0 12.9 13.1 Platelet Count 150 - 400 k/uL 274 318 257 MPV 9.0 - 12.7 fL 12.0 11.6 11.8 Absolute nRBC <0.01 k/uL <0.01 <0.01 <0.01 Cholesterol, Total <200 mg/dL 159 170 144 Triglyceride <150 mg/dL 95 127 86 HDL Cholesterol >39 mg/dL 50 49 46 Non HDL Cholesterol <130 mg/dL 109 121 98 Fasting Time hrs 12 12 12 VLDL Cholesterol <30 mg/dL 19 25 17 TC:HDL Ratio <5.10 3.18 3.47 3.13 LDL Cholesterol <100 mg/dL 90 96 81 LDL:HDL Ratio <2.54 1.80 1.96 1.76 Hemoglobin A1C 4.3 - 5.6 % 5.0 Estimated Average Glucose mg/dL 97 Magnesium 1.7 - 2.3 mg/dL 2.2 2.2 TSH 0.270 - 4.200 mIU/L 1.200 Free T4 0.9 - 1.7 ng/dL 1.3 Free T3 2.3 - 4.1 pg/mL 3.6 Vitamin D 25 Hydroxy 31.0 - 80.0 ng/mL 49.9 Assessment and Plan Encounter Diagnosis ICD-10-CM 1. Mixed hyperlipidemia E78.2 simvastatin (ZOCOR) 20 mg tablet 2. Chronic pain of both knees M25.561 acetaminophen-codeine (TYLENOL-COD #3) 300-30 mg per tablet M25.562 G89.29 3. Primary hypertension I10 COMP METABOLIC PANEL CBC BP controlled. Continues present management 4. Primary osteoarthritis of both knees M17.0 acetaminophen-codeine (TYLENOL-COD #3) 300-30 mg per tablet 5. Greater trochanteric pain syndrome of left lower extremity M25.552 acetaminophen-codeine (TYLENOL-COD #3) 300-30 mg per tablet 6. Osteopenia, unspecified location M85.80 VITAMIN D 25 HYDROXY 7. Hypokalemia E87.6 Adjust potassium intake (diet and supplement) as needed 8. Encounter for long-term current use of medication Z79.899 COMP METABOLIC PANEL CBC LIPID PANEL BASIC MAGNESIUM BLD 9. Elevated glucose R73.09 COMP METABOLIC PANEL 10. Breast cancer screening by mammogram Z12.31 FILIBERTO SCREENING W ROMI 11. Dense breasts R92.2 FILIBERTO SCREENING W ROMI 12. History of bladder cancer Z85.51 Noted history. No signs recurrence noted. Patient here for yearly exam and follow up. Above issues addressed with patient. Patient involved in shared decision making for management of medical issues. History and medications reviewed. Epic updated as needed Refills taken care of and meds adjusted as indicated after reviewed history, exam and labs. Health Maintenance reviewed. Updated record and/or ordered tests as recorded. Encouraged on efforts at healthy diet and regular exercise and adequate sleep. Needs to keep working on diet and exercise with lifestyle changes for effective weight loss as well as prevention of DM, and control of BP and lipids. I spent a total of 68 minutes on the date of the service which included preparing to see the patient, [id number] patient care, completing clinical documentation, performing a medically appropriate examination, counseling and educating the patient/family/caregiver, and ordering medications, tests, or procedures. Percy Vincent MD documented in this encounter [facility] 10-12-2022 Miscellaneous Notes Pt called and is notified of providers results. Pt voices understanding. Susan Thompson, RN Her lipid panel is within normal limits. On simvastatin 20 mg. per [facility] per outside medication dispense review. Should be going over results with her at her visits, has she had a recent one? Patient calling said she did Lipid panel June 17 and has not gotten any call with results. Patient said was rechecking cholesterol since decreased medication dose. Please advise Component Latest Ref Rng & Units 06/17/2022 Cholesterol, Total <200 mg/dL 170 Triglyceride <150 mg/dL 127 HDL Cholesterol >39 mg/dL 49 Non HDL Cholesterol <130 mg/dL 121 Fasting Time hrs 12 VLDL Cholesterol <30 mg/dL 25 TC:HDL Ratio <5.10 3.47 LDL Cholesterol <100 mg/dL 96 LDL:HDL Ratio <2.54 1.96 documented in this encounter [facility] 06-27-2022 Note HNO ID: [id number] Author: Samantha Perez APRN.NANOSYSTEMS ENGINEER Service: ? Author Type: Nurse Specialist Type: Progress Notes Filed: 06/27/2022 11:36 AM Note Text: SUBJECTIVE: There are no preventive care reminders to display for this patient. HPI Maryuri Martinez is a 76 year old female. PMH significant for ACTIVE PROBLEM LIST Postmenopausal Atrophic Vaginitis Hyperlipidemia Htn (Hypertension) Gerd (Gastroesophageal Reflux Disease) Cad (Coronary Artery Disease) HPI excerpted from previous visit: Presents today regarding a cough and sensation that something is in her throat x1 week. She has a history of Rodgers's esophagus. She has seen Dr. Wilson track mechanic in the past. Office visit November 2021. Review of chart indicates presented to [facility] emergency department on June 12, 2021 with rectal bleeding acute abdominal pain and diarrhea. Treated with Cipro and Flagyl following work-up for long segment colitis possibly infectious inflammatory versus ischemic. EGD and colonoscopy were completed November 13, 2021. EGD completed showed irregular Z-line at 38 cm, medium hiatal hernia and intestinal metaplasia. Colonoscopy completed showed 3 polyps tubular adenoma. Polyps removed. She was continued on previous therapy. Today reports GERD symptoms occasionally, had missed a couple of doses of PPI. Had decreased esomeprazole from 40 mg to 20 mg QD. Noted to have left thyroid nodule incidentally noted on imaging study April 2021. She did not schedule FNA which was advised. Today reports no heartburn or GERD since last here. Increased her dose of esomeprazole from 20 mg daily to 40 mg. Taking [id number]. Abdominal pain: once since last seen otherwise no. Swalowing difficulty: none since last seen Enlarged thyroid: no Followed by [facility]. Notes history of allergies, no current runny nose or congestion.. Notes coughing at night then feeling as if cleared. Notes she has taken cetirizine once since last year and did not have the tickle or cough in her throat. Completed US thyroid and parathyroid. Continue with Review of Systems Constitutional: Negative. Respiratory: Positive for cough. Objective BP 112/72 Pulse 86 Resp 16 Wt 71.7 kg (158 lb) SpO2 98% BMI 28.44 kg/m? Physical Exam Vitals and nursing note reviewed. Constitutional: Appearance: Normal appearance. HENT: Head: Normocephalic and atraumatic. Eyes: Conjunctiva/sclera: Conjunctivae normal. Neck: Thyroid: No thyromegaly or thyroid tenderness. Cardiovascular: Rate and Rhythm: Normal rate and regular rhythm. Pulmonary: Effort: Pulmonary effort is normal. Breath sounds: Normal breath sounds. Skin: General: Skin is warm and dry. Neurological: Mental Status: She is alert. ALLERGIES Allergen Reactions Morphine GI Upset Medication esomeprazole (NEXIUM) 20 mg capsule Take 2 capsules by mouth once daily. As directed hydroCHLOROthiazide 12.5 mg capsule Take 1 capsule by mouth once daily. simvastatin (ZOCOR) 40 mg tablet Take 1 tablet by mouth once daily. (Patient taking differently: Take 20 mg by mouth once daily.) glucosamine/chondr arora A sod (OSTEO BI-FLEX ORAL) Take by mouth. amLODIPine (NORVASC) 5 mg tablet Take 5 mg by mouth once daily. aspirin, enteric coated (ASPIRIN, ENTERIC COATED) 81 mg EC tablet Take 81 mg by mouth once daily. imipramine HCl (TOFRANIL) 25 mg tablet Take 25 mg by mouth as needed. Take 1 tablet as needed at bedtime. oxybutynin (DITROPAN) 5 mg tablet Take 5 mg by mouth as needed. cetirizine (ZYRTEC) 10 mg tablet Take 1 tablet by mouth once daily. acetaminophen-codeine (TYLENOL-COD #3) 300-30 mg per tablet Take 0.5-1 tablets by mouth every 4 hours as needed for pain (For back pain) for up to 7 days. PAST MEDICAL HISTORY Diagnosis Date CAD (coronary artery disease) Dr. Kelley; sounds like has blockage with collaterals GERD (gastroesophageal reflux disease) History of bladder cancer ~2008 Dr. Cadena; yearly cystoscopy HTN (hypertension) Hyperlipidemia IBS (irritable bowel syndrome) swings back and forth with diarrhea and constipation Social History Tobacco Use Smoking status: Former Packs/day: 1.00 Years: 35.00 Pack years: 35.00 Types: Cigarettes Smokeless tobacco: Never Vaping Use Vaping Use: Never used Substance Use Topics Alcohol use: Yes Comment: 3-4 beers on the weekends Drug use: Never ASSESSMENT/PLAN: 1. Gastroesophageal reflux disease without esophagitis - ICD9: 530.81, ICD10: K21.9 (primary diagnosis) Continue with 40 mg esomeprazole for now. Had decreased to 20 mg, taking [id number]. 2. Thyroid nodule greater than or equal to 1 cm in diameter incidentally noted on imaging study - ICD9: 241.0, ICD10: E04.1 Thyroid nodule noted, FNA not completed 2021. Recheck completed. Repeat ultrasound imaging recommended at 1,2,3 and 5 years - US THYROID/PARATHYROID 3. Post (more content not included)... [facility] 06-27-2022 History of Present illness Narrative SUBJECTIVE: There are no preventive care reminders to display for this patient. HPI Maryuri Martinez is a 76 year old female. PMH significant for ACTIVE PROBLEM LIST Postmenopausal Atrophic Vaginitis Hyperlipidemia Htn (Hypertension) Gerd (Gastroesophageal Reflux Disease) Cad (Coronary Artery Disease) HPI excerpted from previous visit: Presents today regarding a cough and sensation that something is in her throat x1 week. She has a history of Rodgers's esophagus. She has seen Dr. Wilson track mechanic in the past. Office visit November 2021. Review of chart indicates presented to [facility] emergency department on June 12, 2021 with rectal bleeding acute abdominal pain and diarrhea. Treated with Cipro and Flagyl following work-up for long segment colitis possibly infectious inflammatory versus ischemic. EGD and colonoscopy were completed November 13, 2021. EGD completed showed irregular Z-line at 38 cm, medium hiatal hernia and intestinal metaplasia. Colonoscopy completed showed 3 polyps tubular adenoma. Polyps removed. She was continued on previous therapy. Today reports GERD symptoms occasionally, had missed a couple of doses of PPI. Had decreased esomeprazole from 40 mg to 20 mg QD. Noted to have left thyroid nodule incidentally noted on imaging study April 2021. She did not schedule FNA which was advised. Today reports no heartburn or GERD since last here. Increased her dose of esomeprazole from 20 mg daily to 40 mg. Taking [id number]. Abdominal pain: once since last seen otherwise no. Swalowing difficulty: none since last seen Enlarged thyroid: no Followed by [facility]. Notes history of allergies, no current runny nose or congestion.. Notes coughing at night then feeling as if cleared. Notes she has taken cetirizine once since last year and did not have the tickle or cough in her throat. Completed US thyroid and parathyroid. Continue with Review of Systems Constitutional: Negative. Respiratory: Positive for cough. Objective BP 112/72 Pulse 86 Resp 16 Wt 71.7 kg (158 lb) SpO2 98% BMI 28.44 kg/m Physical Exam Vitals and nursing note reviewed. Constitutional: Appearance: Normal appearance. HENT: Head: Normocephalic and atraumatic. Eyes: Conjunctiva/sclera: Conjunctivae normal. Neck: Thyroid: No thyromegaly or thyroid tenderness. Cardiovascular: Rate and Rhythm: Normal rate and regular rhythm. Pulmonary: Effort: Pulmonary effort is normal. Breath sounds: Normal breath sounds. Skin: General: Skin is warm and dry. Neurological: Mental Status: She is alert. ALLERGIES Allergen Reactions Morphine GI Upset Medication esomeprazole (NEXIUM) 20 mg capsule Take 2 capsules by mouth once daily. As directed hydroCHLOROthiazide 12.5 mg capsule Take 1 capsule by mouth once daily. simvastatin (ZOCOR) 40 mg tablet Take 1 tablet by mouth once daily. (Patient taking differently: Take 20 mg by mouth once daily.) glucosamine/chondr arora A sod (OSTEO BI-FLEX ORAL) Take by mouth. amLODIPine (NORVASC) 5 mg tablet Take 5 mg by mouth once daily. aspirin, enteric coated (ASPIRIN, ENTERIC COATED) 81 mg EC tablet Take 81 mg by mouth once daily. imipramine HCl (TOFRANIL) 25 mg tablet Take 25 mg by mouth as needed. Take 1 tablet as needed at bedtime. oxybutynin (DITROPAN) 5 mg tablet Take 5 mg by mouth as needed. cetirizine (ZYRTEC) 10 mg tablet Take 1 tablet by mouth once daily. acetaminophen-codeine (TYLENOL-COD #3) 300-30 mg per tablet Take 0.5-1 tablets by mouth every 4 hours as needed for pain (For back pain) for up to 7 days. PAST MEDICAL HISTORY Diagnosis Date CAD (coronary artery disease) Dr. Kelley; sounds like has blockage with collaterals GERD (gastroesophageal reflux disease) History of bladder cancer ~2008 Dr. Cadena; yearly cystoscopy HTN (hypertension) Hyperlipidemia IBS (irritable bowel syndrome) swings back and forth with diarrhea and constipation Social History Tobacco Use Smoking status: Former Packs/day: 1.00 Years: 35.00 Pack years: 35.00 Types: Cigarettes Smokeless tobacco: Never Vaping Use Vaping Use: Never used Substance Use Topics Alcohol use: Yes Comment: 3-4 beers on the weekends Drug use: Never ASSESSMENT/PLAN: 1. Gastroesophageal reflux disease without esophagitis - ICD9: 530.81, ICD10: K21.9 (primary diagnosis) Continue with 40 mg esomeprazole for now. Had decreased to 20 mg, taking [id number]. 2. Thyroid nodule greater than or equal to 1 cm in diameter incidentally noted on imaging study - ICD9: 241.0, ICD10: E04.1 Thyroid nodule noted, FNA not completed 2021. Recheck completed. Repeat ultrasound imaging recommended at 1,2,3 and 5 years - US THYROID/PARATHYROID 3. Post-nasal drainage - ICD9: 473.9, ICD10: R09.82 Continue with cetirizine daily for now to see if this helps resolve her cough. She will let us know if not completely resolved or other concerns. Keep October appointment with PCP Samantha Perez APRN.CNS Medical Decision Making: Problems: Moderate: 1+ chronic illnesses with change Risk: Moderate: Drug management Medical Decision Making Level: 4 - Moderate documented in this encounter [facility] 06-27-2022 Instructions Samantha Perez APRN.CNS - 06/27/2022 11:15 AM EDT Continue with Nexium 40 mg Add cetirizine once daily Let us know if not clearing up documented in this encounter [facility] 06-24-2022 Miscellaneous Notes Patient notified of providers message and verbalized understanding. Please let her know that follow-up ultrasound is recommended for thyroid nodule 1 on a report on the right side of her thyroid in 1, 2, 3 and 5 years documented in this encounter [facility] 06-19-2022 Note HNO ID: [id number] Author: Morena Leyva RDMS Service: ? Author Type: Field Broomer Type: Progress Notes Filed: 06/19/2022 2:08 PM Note Text: Radiology Service Progress Note PATIENT NAME: Maryuri Martinez DATE OF SERVICE: June 19, 2022 TIME: 2:08 PM PATIENT IDENTITY VERIFICATION COMPLETED USING TWO (2) IDENTIFIERS: Name and Date of confirmed by patient verbally. FALL SCREENING: Has the patient had 2 falls in the last year or 1 fall with injury or currently using an Ambulatory Assistive Device (Walker, Cane, Wheelchair, Crutches, etc.)? No PATIENT GENDER DATA: Female. status: : No status: NO. PATIENT RELEVANT IMPLANT DATA REVIEWED: Not Applicable RADIOLOGY DEPARTMENT: Ultrasound PERIPHERAL IV DATA: Not applicable SIGNED BY: Morena Leyva RDMS June 19, 2022 2:08 PM [facility] 06-19-2022 History of Present illness Narrative Radiology Service Progress Note PATIENT NAME: Maryuri Martinez DATE OF SERVICE: June 19, 2022 TIME: 2:08 PM PATIENT IDENTITY VERIFICATION COMPLETED USING TWO (2) IDENTIFIERS: Name and Date of confirmed by patient verbally. FALL SCREENING: Has the patient had 2 falls in the last year or 1 fall with injury or currently using an Ambulatory Assistive Device (Walker, Cane, Wheelchair, Crutches, etc.)? No PATIENT GENDER DATA: Female. status: : No status: NO. PATIENT RELEVANT IMPLANT DATA REVIEWED: Not Applicable RADIOLOGY DEPARTMENT: Ultrasound PERIPHERAL IV DATA: Not applicable SIGNED BY: Morena Leyva RDMS June 19, 2022 2:08 PM documented in this encounter [facility] 06-13-2022 Note HNO ID: [id number] Author: Samantha Perez APRN.NANOSYSTEMS ENGINEER Service: ? Author Type: Nurse Specialist Type: Progress Notes Filed: 06/13/2022 3:48 PM Note Text: SUBJECTIVE: There are no preventive care reminders to display for this patient. HPI Maryuri Martinez is a 76 year old female. PMH significant for ACTIVE PROBLEM LIST Postmenopausal Atrophic Vaginitis Hyperlipidemia Htn (Hypertension) Gerd (Gastroesophageal Reflux Disease) Cad (Coronary Artery Disease) Presents today regarding a cough and sensation that something is in her throat x1 week. She has a history of Rodgers's esophagus. She has seen Dr. Wilson track mechanic in the past. Office visit November 2021. Review of chart indicates presented to [facility] emergency department on June 12, 2021 with rectal bleeding acute abdominal pain and diarrhea. Treated with Cipro and Flagyl following work-up for long segment colitis possibly infectious inflammatory versus ischemic. EGD and colonoscopy were completed November 13, 2021. EGD completed showed irregular Z-line at 38 cm, medium hiatal hernia and intestinal metaplasia. Colonoscopy completed showed 3 polyps tubular adenoma. Polyps removed. She was continued on previous therapy. Today reports GERD symptoms occasionally, had missed a couple of doses of PPI. Had decreased esomeprazole from 40 mg to 20 mg QD. Abdominal pain: occasional Noted to have left thyroid nodule incidentally noted on imaging study April 2021. She did not schedule FNA which was advised. Swalowing difficulty: no Enlarged thyroid: not really Followed by [facility]. Notes no recent illness and no ill contacts. Notes history of allergies, no current runny nose or congestion.. Review of Systems Constitutional: Negative. Respiratory: Positive for cough. Objective BP 110/70 Pulse 92 Resp 16 Wt 71.2 kg (157 lb) SpO2 99% BMI 28.26 kg/m? Physical Exam Vitals and nursing note reviewed. Constitutional: Appearance: Normal appearance. HENT: Head: Normocephalic and atraumatic. Eyes: Conjunctiva/sclera: Conjunctivae normal. Neck: Thyroid: No thyromegaly or thyroid tenderness. Cardiovascular: Rate and Rhythm: Normal rate and regular rhythm. Pulmonary: Effort: Pulmonary effort is normal. Breath sounds: Normal breath sounds. Skin: General: Skin is warm and dry. Neurological: Mental Status: She is alert. ALLERGIES Allergen Reactions Morphine GI Upset Medication acetaminophen-codeine (TYLENOL-COD #3) 300-30 mg per tablet Take 0.5-1 tablets by mouth every 4 hours as needed for pain (For back pain) for up to 7 days. hydroCHLOROthiazide 12.5 mg capsule Take 1 capsule by mouth once daily. simvastatin (ZOCOR) 40 mg tablet Take 1 tablet by mouth once daily. (Patient taking differently: Take 20 mg by mouth once daily.) glucosamine/chondr arora A sod (OSTEO BI-FLEX ORAL) Take by mouth. amLODIPine (NORVASC) 5 mg tablet Take 5 mg by mouth once daily. esomeprazole (NEXIUM) 20 mg capsule Take 1 capsule by mouth once daily. As directed aspirin, enteric coated (ASPIRIN, ENTERIC COATED) 81 mg EC tablet Take 81 mg by mouth once daily. imipramine HCl (TOFRANIL) 25 mg tablet Take 25 mg by mouth as needed. Take 1 tablet as needed at bedtime. oxybutynin (DITROPAN) 5 mg tablet Take 5 mg by mouth as needed. fluticasone (FLONASE) 50 mcg/actuation nasal spray Use 2 Sprays in each nostril once daily. Rinse mouth after use. (has at home already) (Patient not taking: Reported on 06/13/2022) Vitamin E, dl, acetate, (VITAMIN E) 400 unit capsule Take 400 Units by mouth once daily. Taking 1 capsule every other day. (Patient not taking: No sig reported) triamcinolone (KENALOG) 0.025 % cream Apply 1 application to affected area three times daily. (Patient not taking: Reported on 06/13/2022) PAST MEDICAL HISTORY Diagnosis Date CAD (coronary artery disease) Dr. Kelley; sounds like has blockage with collaterals GERD (gastroesophageal reflux disease) History of bladder cancer ~2008 Dr. Cadena; yearly cystoscopy HTN (hypertension) Hyperlipidemia IBS (irritable bowel syndrome) swings back and forth with diarrhea and constipation Social History Tobacco Use Smoking status: Former Packs/day: 1.00 Years: 35.00 Pack years: 35.00 Types: Cigarettes Smokeless tobacco: Never Vaping Use Vaping Use: Never used Substance Use Topics Alcohol use: Yes Comment: 3-4 beers on the weekends Drug use: Never ASSESSMENT/PLAN: 1. Gastroesophageal reflux disease without esophagitis - ICD9: 530.81, ICD10: K21.9 (primary diagnosis) Was previously taking 40 mg esomeprazole, had decreased to 20 mg, taking [id number]. Endorse increasing back up to 40 mg daily to see if this helps with throat symptoms. 2. Thyroid nodule greater than or equal to 1 cm in diameter incidentally noted on imaging study - ICD9: 241.0, ICD10: E04.1 Thyroid nodule noted, FNA not comple (more content not included)... [facility] 06-13-2022 Instructions Samantha Perez APRN.CNS - 06/13/2022 3:32 PM EDT documented in this encounter [facility] 06-13-2022 History of Present illness Narrative SUBJECTIVE: There are no preventive care reminders to display for this patient. HPI Maryuri Martinez is a 76 year old female. PMH significant for ACTIVE PROBLEM LIST Postmenopausal Atrophic Vaginitis Hyperlipidemia Htn (Hypertension) Gerd (Gastroesophageal Reflux Disease) Cad (Coronary Artery Disease) Presents today regarding a cough and sensation that something is in her throat x1 week. She has a history of Rodgers's esophagus. She has seen Dr. Wilson track mechanic in the past. Office visit November 2021. Review of chart indicates presented to [facility] emergency department on June 12, 2021 with rectal bleeding acute abdominal pain and diarrhea. Treated with Cipro and Flagyl following work-up for long segment colitis possibly infectious inflammatory versus ischemic. EGD and colonoscopy were completed November 13, 2021. EGD completed showed irregular Z-line at 38 cm, medium hiatal hernia and intestinal metaplasia. Colonoscopy completed showed 3 polyps tubular adenoma. Polyps removed. She was continued on previous therapy. Today reports GERD symptoms occasionally, had missed a couple of doses of PPI. Had decreased esomeprazole from 40 mg to 20 mg QD. Abdominal pain: occasional Noted to have left thyroid nodule incidentally noted on imaging study April 2021. She did not schedule FNA which was advised. Swalowing difficulty: no Enlarged thyroid: not really Followed by [facility]. Notes no recent illness and no ill contacts. Notes history of allergies, no current runny nose or congestion.. Review of Systems Constitutional: Negative. Respiratory: Positive for cough. Objective BP 110/70 Pulse 92 Resp 16 Wt 71.2 kg (157 lb) SpO2 99% BMI 28.26 kg/m Physical Exam Vitals and nursing note reviewed. Constitutional: Appearance: Normal appearance. HENT: Head: Normocephalic and atraumatic. Eyes: Conjunctiva/sclera: Conjunctivae normal. Neck: Thyroid: No thyromegaly or thyroid tenderness. Cardiovascular: Rate and Rhythm: Normal rate and regular rhythm. Pulmonary: Effort: Pulmonary effort is normal. Breath sounds: Normal breath sounds. Skin: General: Skin is warm and dry. Neurological: Mental Status: She is alert. ALLERGIES Allergen Reactions Morphine GI Upset Medication acetaminophen-codeine (TYLENOL-COD #3) 300-30 mg per tablet Take 0.5-1 tablets by mouth every 4 hours as needed for pain (For back pain) for up to 7 days. hydroCHLOROthiazide 12.5 mg capsule Take 1 capsule by mouth once daily. simvastatin (ZOCOR) 40 mg tablet Take 1 tablet by mouth once daily. (Patient taking differently: Take 20 mg by mouth once daily.) glucosamine/chondr arora A sod (OSTEO BI-FLEX ORAL) Take by mouth. amLODIPine (NORVASC) 5 mg tablet Take 5 mg by mouth once daily. esomeprazole (NEXIUM) 20 mg capsule Take 1 capsule by mouth once daily. As directed aspirin, enteric coated (ASPIRIN, ENTERIC COATED) 81 mg EC tablet Take 81 mg by mouth once daily. imipramine HCl (TOFRANIL) 25 mg tablet Take 25 mg by mouth as needed. Take 1 tablet as needed at bedtime. oxybutynin (DITROPAN) 5 mg tablet Take 5 mg by mouth as needed. fluticasone (FLONASE) 50 mcg/actuation nasal spray Use 2 Sprays in each nostril once daily. Rinse mouth after use. (has at home already) (Patient not taking: Reported on 06/13/2022) Vitamin E, dl, acetate, (VITAMIN E) 400 unit capsule Take 400 Units by mouth once daily. Taking 1 capsule every other day. (Patient not taking: No sig reported) triamcinolone (KENALOG) 0.025 % cream Apply 1 application to affected area three times daily. (Patient not taking: Reported on 06/13/2022) PAST MEDICAL HISTORY Diagnosis Date CAD (coronary artery disease) Dr. Kelley; sounds like has blockage with collaterals GERD (gastroesophageal reflux disease) History of bladder cancer ~2008 Dr. Cadena; yearly cystoscopy HTN (hypertension) Hyperlipidemia IBS (irritable bowel syndrome) swings back and forth with diarrhea and constipation Social History Tobacco Use Smoking status: Former Packs/day: 1.00 Years: 35.00 Pack years: 35.00 Types: Cigarettes Smokeless tobacco: Never Vaping Use Vaping Use: Never used Substance Use Topics Alcohol use: Yes Comment: 3-4 beers on the weekends Drug use: Never ASSESSMENT/PLAN: 1. Gastroesophageal reflux disease without esophagitis - ICD9: 530.81, ICD10: K21.9 (primary diagnosis) Was previously taking 40 mg esomeprazole, had decreased to 20 mg, taking [id number]. Endorse increasing back up to 40 mg daily to see if this helps with throat symptoms. 2. Thyroid nodule greater than or equal to 1 cm in diameter incidentally noted on imaging study - ICD9: 241.0, ICD10: E04.1 Thyroid nodule noted, FNA not completed 2021. Recommend recheck. - US THYROID/PARATHYROID 3. Acute cough - ICD9: 786.2, ICD10: R05.1 Not feeling ill, no sick contacts Take esomeprazole 40 mg daily to see if improvement of throat symptoms. 2-4 week recheck with me after thyroid US completed. Samantha Perez APRN.DARIUS Medical Decision Making: Problems: Moderate: New problem with uncertain prognosis Data: Unique test(s) ordered: 1 Risk: Moderate: Drug management Medical Decision Making Level: 4 - Moderate documented in this encounter [facility] 04-25-2022 Miscellaneous Notes Spoke with pt and information listed below given. Pt verbalizes understanding. Nisreen Serrano LPN The following approved medication requests have been transmitted electronically. Requested Prescriptions Signed Prescriptions Disp Refills acetaminophen-codeine (TYLENOL-COD #3) 300-30 mg per tablet 42 tablet 0 Sig: Take 0.5-1 tablets by mouth every 4 hours as needed for pain (For back pain) for up to 7 days. Authorizing Provider: PERCY VINCENT hydroCHLOROthiazide 12.5 mg capsule 90 capsule 3 Sig: Take 1 capsule by mouth once daily. Authorizing Provider: PERCY VINCENT MD Last Office Visit: 04/19/2022 Future Office Visit: 11/08/2022 Requested Prescriptions Pending Prescriptions Disp Refills acetaminophen-codeine (TYLENOL-COD #3) 300-30 mg per tablet 42 tablet 0 Sig: Take 0.5-1 tablets by mouth every 4 hours as needed for pain (For back pain) for up to 7 days. hydroCHLOROthiazide 12.5 mg capsule 90 capsule 3 Sig: Take 1 capsule by mouth once daily. Date of Last Labs: 04/11/2022 documented in this encounter [facility] 04-19-2022 Note HNO ID: [id number] Author: Percy Vincent MD Service: ? Author Type: Physician Type: Progress Notes Filed: 05/20/2022 12:36 AM Note Text: This note was created using [employer]. Subjective Maryuri Martinez is a 76 year old female. Patient presents with: F/U 6 months SUBJECTIVE: Maryuri Martinez is a 76 year old year old lady here today for 6 month follow up appointment for review of medical conditions. Overall doing well. Noted some hair thinning after COVID but that resolved. Last year went to [facility]. Was told had ear infection. Was doing better. Started with ear pain a few days ago. (Also told has bad tooth upper molar on right that ended up getting pulled last year.). Hurts anterior to right ear. Last year thought just needed ears cleaned out but was told had ear infection No pain with chewing. Sometimes bites cheek because tooth not there anymore. Then in May to ER--told had colitis. Went to Dr. Wilson and had colonoscopy. Polyps noted. Continues with small balls of stool. Drinking about 3 bottles of 10 to 12 oz water. Urinates more. Colace tried and did help. Tried prune juice and apples--not enough. Pain in left arm. Saw Lois Pedro Luis at [facility]. Cut her dose of 40 mg simvastatin in half but pharmacy told her okay to cut 40mg pills to save money. Just lowered March. Arm pain still comes in left lateral upper arm and sometimes goes to posterior shoulder blade. Can happen anytime, usually in the evening. Sometimes gets head pains like a zing or zap that does not last long and multiple spots on head can be affects. Sometimes feels like drooling from corner of right lips but no moisture. Depression Screening 03/05/2017 03/18/2018 09/29/2020 04/19/2022 PHQ-2 Score 0 0 - 0 PHQ-9 Score - - 0 - Depression screening tool completed and reviewed. Based on score and interview, patient is not at risk for depression. Screening tool discussed with patient, and I recommended no further intervention at this time. PAST MEDICAL HISTORY Diagnosis Date CAD (coronary artery disease) Dr. Kelley; sounds like has blockage with collaterals GERD (gastroesophageal reflux disease) History of bladder cancer ~2008 Dr. Cadena; yearly cystoscopy HTN (hypertension) Hyperlipidemia IBS (irritable bowel syndrome) swings back and forth with diarrhea and constipation Current Outpatient Medications Medication Sig acetaminophen-codeine (TYLENOL-COD #3) 300-30 mg per tablet Take 0.5-1 tablets by mouth every 4 hours as needed for pain (For back pain) for up to 7 days. simvastatin (ZOCOR) 40 mg tablet Take 1 tablet by mouth once daily. hydroCHLOROthiazide 12.5 mg capsule Take 1 capsule by mouth once daily. glucosamine/chondr arora A sod (OSTEO BI-FLEX ORAL) Take by mouth. Vitamin E, dl, acetate, (VITAMIN E) 400 unit capsule Take 400 Units by mouth once daily. Taking 1 capsule every other day. amLODIPine (NORVASC) 5 mg tablet Take 5 mg by mouth once daily. esomeprazole (NEXIUM) 20 mg capsule Take 1 capsule by mouth once daily. As directed triamcinolone (KENALOG) 0.025 % cream Apply 1 application to affected area three times daily. aspirin, enteric coated (ASPIRIN, ENTERIC COATED) 81 mg EC tablet Take 81 mg by mouth once daily. imipramine HCl (TOFRANIL) 25 mg tablet Take 25 mg by mouth as needed. Take 1 tablet as needed at bedtime. (Patient not taking: No sig reported) oxybutynin (DITROPAN) 5 mg tablet Take 5 mg by mouth as needed. (Patient not taking: No sig reported) No current facility-administered medications for this visit. Review of Systems Objective BP 122/74 Pulse 63 Temp 36.3 ?C (97.3 ?F) Resp 18 Wt 70.3 kg (155 lb) SpO2 99% BMI 27.90 kg/m? Last 5 Encounter Wt Readings: Date: Wt: 04/19/2022 70.3 kg (155 lb) 10/26/2021 69.9 kg (154 lb) 06/15/2021 68.5 kg (151 lb) 05/23/2021 69.9 kg (154 lb) 05/08/2021 68.5 kg (151 lb) No waist measurement recorded Estimated body mass index is 27.9 kg/m? as calculated from the following: Height as of 10/26/21: 158.8 cm (5' 2.5 ). Weight as of this encounter: 70.3 kg (155 lb). Last 5 Encounter BP Readings: Date: BP: 04/19/2022 122/74 10/26/2021 128/82 06/15/2021 140/82 05/23/2021 102/66 05/08/2021 120/78 Physical Exam Constitutional: Appearance: Normal appearance. HENT: Head: Normocephalic. Eyes: Conjunctiva/sclera: Conjunctivae normal. Cardiovascular: Rate and Rhythm: Normal rate and regular rhythm. Heart sounds: Normal heart sounds. Pulmonary: Effort: Pulmonary effort is normal. Breath sounds: Normal breath sounds. Musculoskeletal: Right shoulder: No swelling, tenderness, bony tenderness or crepitus. Normal range of motion. Left shoulder: No swelling, tenderness, bony tenderness or crepitus. Normal range of motion. Skin: General: Skin is warm and dry. Neurological: General: No focal deficit present. Mental Status: She is alert and or (more content not included)... [facility] 04-10-2022 Miscellaneous Notes Patient called and notified that orders placed. Voiced understanding. Althea Mcdonald RN Orders for CBC/CMP placed, otherwise things looked up to date Patient is at [facility] currently asking for lab orders. Please review and place as necessary. documented in this encounter [facility] 01-30-2022 Miscellaneous Notes Message left to pt with info. ----- Message from Percy Vincent MD sent at 01/30/2022 12:15 AM EST ----- Noted negative. Return to doing annual mammogram documented in this encounter [facility] 01-29-2022 Note HNO ID: [id number] Author: Morena Leyva RDMS Service: ? Author Type: Field Broomer Type: Progress Notes Filed: 01/29/2022 4:26 PM Note Text: Radiology Service Progress Note PATIENT NAME: Maryuri Martinez DATE OF SERVICE: January 29, 2022 TIME: 4:26 PM PATIENT IDENTITY VERIFICATION COMPLETED USING TWO (2) IDENTIFIERS: Name and Date of confirmed by patient verbally. FALL SCREENING: Has the patient had 2 falls in the last year or 1 fall with injury or currently using an Ambulatory Assistive Device (Walker, Cane, Wheelchair, Crutches, etc.)? No PATIENT GENDER DATA: Female. status: : No status: NO. PATIENT RELEVANT IMPLANT DATA REVIEWED: Not Applicable RADIOLOGY DEPARTMENT: Ultrasound PERIPHERAL IV DATA: Not applicable SIGNED BY: Morena Leyva RDMS January 29, 2022 4:26 PM [facility] 01-29-2022 Note HNO ID: [id number] Author: RT Jasbir(R) Service: ? Author Type: Technologist Type: Progress Notes Filed: 01/29/2022 3:41 PM Note Text: Radiology Service Progress Note PATIENT NAME: Maryuri Martinez DATE OF SERVICE: January 29, 2022 TIME: 3:23 PM PATIENT IDENTITY VERIFICATION COMPLETED USING TWO (2) IDENTIFIERS: Name and Date of confirmed by patient verbally. FALL SCREENING: Has the patient had 2 falls in the last year or 1 fall with injury or currently using an Ambulatory Assistive Device (Walker, Cane, Wheelchair, Crutches, etc.)? No PATIENT GENDER DATA: Female. status: : No status: NO. PATIENT RELEVANT IMPLANT DATA REVIEWED: Not Applicable RADIOLOGY DEPARTMENT: Mammography PERIPHERAL IV DATA: Not applicable SIGNED BY: RT Jasbir(R) January 29, 2022 3:23 PM [facility] 01-29-2022 History of Present illness Narrative Radiology Service Progress Note PATIENT NAME: Maryuri Martinez DATE OF SERVICE: January 29, 2022 TIME: 3:23 PM PATIENT IDENTITY VERIFICATION COMPLETED USING TWO (2) IDENTIFIERS: Name and Date of confirmed by patient verbally. FALL SCREENING: Has the patient had 2 falls in the last year or 1 fall with injury or currently using an Ambulatory Assistive Device (Walker, Cane, Wheelchair, Crutches, etc.)? No PATIENT GENDER DATA: Female. status: : No status: NO. PATIENT RELEVANT IMPLANT DATA REVIEWED: Not Applicable RADIOLOGY DEPARTMENT: Mammography PERIPHERAL IV DATA: Not applicable SIGNED BY: RT Jasbir(R) January 29, 2022 3:23 PM documented in this encounter [facility] 12-20-2021 Miscellaneous Notes PT notified and called her back to leave a message with the number to call to arrange. ----- Message from Percy Vincent MD sent at 12/20/2021 3:43 AM EDT ----- Needs more images. Orders filed documented in this encounter [facility] 12-19-2021 Miscellaneous Notes December 19, 2021 PID: [id number] Maryuri Martinez [id number] [place] [address] Dear Ms. Martinez, Your recent breast imaging exam on 12/18/2021 showed a possible finding that requires additional imaging studies for a complete evaluation. Most such findings are probably benign (not cancer). Your mammogram demonstrates that you have dense breast tissue, which could hide abnormalities. Dense breast tissue, in and of itself, is a relatively common condition. Therefore, this information is not provided to cause undue concern; rather, it is to raise your awareness and promote discussion with your health care provider regarding the presence of dense breast tissue in addition to other risk factors. If you have a healthcare provider who ordered/prescribed your screening mammogram: Please call [phone] or [phone]: [phone] to schedule an appointment for your additional imaging (if you have not already done so). If you DO NOT have a healthcare provider (ie you did not have an order/prescription for your screening mammogram): Please call to schedule an appointment for your additional imaging (if you have not already done so). You must have an order/prescription from your physician when calling to schedule your appointment. If your order/prescription is not electronic, you must bring the hard copy with you on the day of your exam to avoid delays. Your imaging studies and reports are kept on file at [facility] as part of your permanent medical record, and are available for your continuing care. Thank you for allowing us to help in meeting your health care needs. Sincerely, Dr. Hartman Interpreting Radiologist [facility] (Additional imaging) documented in this encounter [facility] 12-18-2021 History of Present illness Narrative Radiology Service Progress Note PATIENT NAME: Maryuri Martinez DATE OF SERVICE: December 18, 2021 TIME: 1:22 PM PATIENT IDENTITY VERIFICATION COMPLETED USING TWO (2) IDENTIFIERS: Name and Date of confirmed by patient verbally. FALL SCREENING: Has the patient had 2 falls in the last year or 1 fall with injury or currently using an Ambulatory Assistive Device (Walker, Cane, Wheelchair, Crutches, etc.)? No PATIENT GENDER DATA: Female. status: : No status: NO. PATIENT RELEVANT IMPLANT DATA REVIEWED: Not Applicable RADIOLOGY DEPARTMENT: Mammography PERIPHERAL IV DATA: Not applicable SIGNED BY: RT Jasbir(R) December 18, 2021 1:22 PM documented in this encounter [facility] 09-09-2022 History of Present illness Narrative Maryuri Martinez is a 76 year old female here for a Medicare Subsequent Annual Wellness Visit Health Risk Assessment In general, health is: Very good Concerns with tiredness, difficulties with sexual function, balance, teeth/dentures: Not at all [place] anxious, stressed, angry, irritable, lonely, isolated, or had thoughts of hurting themself: Not at all Eats healthy foods including fruits, vegetables, whole grains, and fiber-rich foods: Several days Has little interest or pleasure in doing things: Not at all Bothered by feeling down, depressed, or hopeless: Not at all Needs help with grocery shopping, cooking, housework, bathing, grooming, dressing, eating, sitting or standing, walking, using the toilet, handling finances, taking medications, using the telephone, or driving: Yes Following safety precautions in the home environment and vehicle: removed throw rugs from floors, installed grab bars in the bathroom, handrails in stairwells, having adequate lighting, wearing seatbelt at all times?: No Smokes cigarettes, vapes, or chew tobacco: No Number of days per week engages in exercise: 2 days Average alcohol consumption: 2-4 times a month Current Providers Patient Care Team: Percy Vincent MD as PCP - General (Internal Medicine) Specialists: Outside specialists seen: Dr. Workman (urologist). Dr. Zeng ([employer] [facility]), Podiatry--has had 5 since going to [facility] where Dr. Mariscal. Recent was Dr. Box ([facility]). Dr. Stovall (ortho; shots the past 30 years) Medical/Family history review Reviewed and updated problem list, medical history, surgical history, family history, social history, medication list, and allergies. Opioid use review Patient is not currently using opioids. Prescribed acetaminophen with codeine (last 90 days) Does patient have risk factors for opioid abuse? No Pain overview Current pain concerns and treatment plan reviewed. Patient stable on current treatment plan and following with Dr. Stovall for bella . Depression screening Depression screening tool completed and reviewed. Based on score and interview, patient is not at risk for depression. Screening tool discussed with patient, and I recommended no further intervention at this time. .4cdepression Cognitive screening Mini-cog score: Mini Cog Score: 5 Cognitive screening reviewed and no further action needed (score 3-5) Functional Observation Was the patient's timed Up & Go test unsteady or longer than 30 seconds? No Advance Care Planning End of Life planning discussed, including patient's advanced directive wishes: Yes Does not have HCDPOA or LW yet but has ex that has told what her wishes are and 2 friends (Swati Atkins and Elizabeth Flores) that would be her surrogate decision maker. Planss to take care. Measurements BP 128/82 Pulse 87 Ht 5' 2.5 (1.59m) Wt 154 lb (69.9kg) SpO2 96% BMI 27.70 kg/(m^2). Visual acuity: follows with optometry/ophthalmology Hearing Evaluation: within normal limits Assessment/Plan - Counseled on healthy diet and regular exercise - Fall avoidance Additional Concerns The following concerns were also discussed with the patient: Noted that recent gel shots not as effective as prior shots. Still some external itching after treated with pill for yeast infection. Treated with pill and still itching. PAST MEDICAL HISTORY Diagnosis Date CAD (coronary artery disease) Dr. Kleley; sounds like has blockage with collaterals GERD (gastroesophageal reflux disease) History of bladder cancer ~2008 Dr. Cadena; yearly cystoscopy HTN (hypertension) Hyperlipidemia IBS (irritable bowel syndrome) swings back and forth with diarrhea and constipation Current Outpatient Medications Medication Sig Vitamin E, dl, acetate, (VITAMIN E) 400 unit capsule Take 400 Units by mouth once daily. Taking 1 capsule every other day. acetaminophen-codeine (TYLENOL-COD #3) 300-30 mg per tablet Take 0.5-1 tablets by mouth every 4 hours as needed for pain (For back pain) for up to 7 days. simvastatin (ZOCOR) 40 mg tablet Take 1 tablet by mouth once daily. ketoconazole (NIZORAL) 2 % cream Apply 1 application to affected area twice daily. Continue for a week after resolution of symptoms. hydroCHLOROthiazide 12.5 mg capsule Take 1 capsule by mouth once daily. glucosamine/chondr arora A sod (OSTEO BI-FLEX ORAL) Take by mouth. amLODIPine (NORVASC) 5 mg tablet Take 5 mg by mouth once daily. esomeprazole (NEXIUM) 20 mg capsule Take 1 capsule by mouth once daily. As directed triamcinolone (KENALOG) 0.025 % cream Apply 1 application to affected area three times daily. aspirin, enteric coated (ASPIRIN, ENTERIC COATED) 81 mg EC tablet Take 81 mg by mouth once daily. imipramine HCl (TOFRANIL) 25 mg tablet Take 25 mg by mouth as needed. Take 1 tablet as needed at bedtime. (Patient not taking: No sig reported) oxybutynin (DITROPAN) 5 mg tablet Take 5 mg by mouth as needed. (Patient not taking: No sig reported) No current facility-administered medications for this visit. Social History Tobacco Use Smoking status: Former Packs/day: 1.00 Years: 35.00 Pack years: 35.00 Types: Cigarettes Smokeless tobacco: Never Vaping Use Vaping Use: Never used Substance Use Topics Alcohol use: No FAMILY HISTORY Problem Relation Age of Onset Lung Cancer Mother Heart Father Cancer Father prostate/skin PHYSICAL EXAM BP 128/82 Pulse 87 Ht 158.8 cm (5' 2.5 ) Wt 69.9 kg (154 lb) SpO2 96% BMI 27.72 kg/m GENERAL: well appearing, alert, in no acute distress CARDIOVASCULAR: Regular rate and rhythm. No murmur, rubs or gallops. PULMONARY: clear to auscultation, no wheezing, rhonchi, or crackles ABDOMEN: soft, non-tender, non-distended, no masses or organomegaly EXTREMITY: no lower extremity edema. No skin discoloration. Component Latest Ref Rng & Units 10/05/2020 04/03/2021 10/11/2021 Protein, Total 6.3 - 8.0 g/dL 6.9 7.0 7.1 Albumin 3.9 - 4.9 g/dL 4.3 4.5 4.6 Calcium 8.5 - 10.2 mg/dL 9.1 9.3 9.0 Bilirubin, Total 0.2 - 1.3 mg/dL 0.8 0.6 0.7 Alkaline Phosphatase 34 - 123 U/L 85 107 96 AST 13 - 35 U/L 14 16 17 Glucose 74 - 99 mg/dL 91 97 104 (H) BUN 7 - 21 mg/dL 14 14 18 Creatinine 0.58 - 0.96 mg/dL 0.89 0.88 0.85 Sodium 136 - 144 mmol/L 140 139 139 Potassium 3.7 - 5.1 mmol/L 3.7 4.0 3.5 (L) Chloride 97 - 105 mmol/L 102 102 102 CO2 22 - 30 mmol/L 28 26 24 Anion Gap 9 - 18 mmol/L 10 11 13 ALT 7 - 38 U/L <5 (L) 7 7 eGFR- >60 >60 eGFR-All Other Races . >60 >60 eGFR >=60 mL/min/1.73m 72 WBC 3.70 - 11.00 k/uL 5.80 6.30 6.50 RBC 3.90 - 5.20 m/uL 3.62 (L) 3.96 3.77 (L) Hemoglobin 11.5 - 15.5 g/dL 12.5 13.6 12.8 Hematocrit 36.0 - 46.0 % 36.0 38.3 36.9 MCV 80.0 - 100.0 fL 99.4 96.7 97.9 MCH 26.0 - 34.0 pg 34.5 (H) 34.3 (H) 34.0 MCHC 30.5 - 36.0 g/dL 34.7 35.5 34.7 RDW-CV 11.5 - 15.0 % 12.8 12.6 13.0 Platelet Count 150 - 400 k/uL 278 303 274 MPV 9.0 - 12.7 fL 11.8 12.2 12.0 Absolute nRBC <0.01 k/uL <0.01 <0.01 <0.01 Cholesterol, Total <200 mg/dL 137 152 159 Triglyceride <150 mg/dL 80 109 95 HDL Cholesterol >39 mg/dL 46 50 50 LDL Cholesterol <100 mg/dL 75 80 90 Non HDL Cholesterol <130 mg/dL 91 102 109 Fasting Time hrs 10 12 12 VLDL Cholesterol <30 mg/dL 16 22 19 TC:HDL Ratio <5.10 2.98 3.04 3.18 LDL:HDL Ratio <2.54 1.63 1.60 1.80 TSH 0.270 - 4.200 mIU/L 1.260 0.867 1.200 Free T4 0.9 - 1.7 ng/dL 1.2 1.3 1.3 Free T3 2.3 - 4.1 pg/mL 3.2 3.2 3.6 Magnesium 1.7 - 2.3 mg/dL 2.2 Vitamin D 25 Hydroxy 31.0 - 80.0 ng/mL 49.9 Encounter Diagnosis ICD-10-CM 1. Medicare annual wellness visit, subsequent Z00.00 2. Primary hypertension I10 3. Mixed hyperlipidemia E78.2 simvastatin (ZOCOR) 40 mg tablet 4. Chronic pain of both knees M25.561 acetaminophen-codeine (TYLENOL-COD #3) 300-30 mg per tablet M25.562 G89.29 5. Primary osteoarthritis of both knees M17.0 acetaminophen-codeine (TYLENOL-COD #3) 300-30 mg per tablet 6. Greater trochanteric pain syndrome of left lower extremity M25.552 acetaminophen-codeine (TYLENOL-COD #3) 300-30 mg per tablet Above issues addressed with patient. Patient involved in shared decision making for management of medical issues. History and medications reviewed. Epic updated as needed Refills and/or prescriptions taken care of and meds adjusted as indicated after reviewed history, exam and labs. Health Maintenance reviewed. Updated record and/or ordered tests as recorded. Encouraged on efforts at healthy diet and regular exercise and adequate sleep. Percy Vincent MD documented in this encounter [facility] 10-13-2021 Miscellaneous Notes Notified patient. I assume done with antibiotic and took off med list The following approved medication requests have been transmitted electronically. Requested Prescriptions Signed Prescriptions Disp Refills fluconazole (DIFLUCAN) 150 mg tablet 2 tablet 0 Sig: Take 1 tablet by mouth one time only for 1 dose. Repeat in 3 days as needed. Authorizing Provider: PERCY VINCENT MD Follow up as needed Patient reports she had recently taken AB's for colitis, prescribed by ER, then a month later prescribed AB's again for an ear infection. Now having symptoms of vaginal yeast infection. Yesterday used a monistat insert, and it did help, but still having itching and a little burning on the outside. The discharge went away after using the monistat. Asking if pcp would send the pill, diflucan to pharmacy. Advised patient she could stop in at [facility] for evaluation and they could prescribe it. Patient declined [facility] visit. Aware pcp may not get this message until Friday. Patient states she will try the monistat again today, but feels the pill would help her more and prefers message still be sent to pcp. If you are able to prescribe the diflucan please let patient know via telephone. [facility]. documented in this encounter [facility] 06-25-2021 Miscellaneous Notes Noted. should let us know if needing anything prior to her visit with Dr Wilson. Spoke with patient. Patient states her stools are getting a little bit firmer and not feeling as bad since finished antibiotic the other day. She states she called Dr. Bates office again today and they stated that there was no way to get her in any sooner. Check to see how she is doing and if she was able to get a sooner appt with Dr Wilson Called and left a detailed voicemail notifying provider of Dr Vincent's message. Hospital phone number was left for them to call back with recommendations. Susan Thompson RN Patient has acute colitis and has had bleeding. As I said in my letter to Dr. Wilson, he said he could work her in sooner than 2 months through his patient who is a friend of my patient. If a month and a half for evaluation of acute colitis is reasonable to him, then okay. Since she was given antibiotics and pain is not severe at this time, can keep an eye on her for now. I will order labs prior to appointment if they have recommendations. Can I let Dr. Wilson and his staff know if bleeding and pain worsens to see if he would be able to see her sooner? [facility] calling to ask Dr. Vincent questions regarding patient. They state they have received a referral and letter from Dr. Vincent stating patient needs to follow-up with them as soon as possible. They would like Dr. Vincent to know the soonest they can see patient is 07/30/21. 1)They are asking if this 07/30 date is okay for patient to be seen? 2)Also asking if Dr. Vincent would like them to give recommendations of labs prior to appt? They state they have not reached out to patient yet to offer this 07/30 appt but will do so after receiving response from Dr. Vincent. Please call [phone] with reply. Thank you. documented in this encounter [facility] 05-28-2021 Miscellaneous Notes Told patient results of US thyroid. She is s/p FNA of right thyroid nodule. However, there is a new suspicious left thyroid nodule for which the radiologist recommends biopsy. Patient is loathe to biopsy because she doesn't like needles and the valium I prescribed for her for her last biopsy didn't work . I told patient that we could try ativan for this next biopsy. Patient asks for alternatives, I have offered her 6 months follow up US of thyroid, but cautioned her regarding radiology recommendations. Patient states that she will think about the above. She will call the office if she wants to schedule for either of the above. Patient acknowledges the above. documented in this encounter [facility] 05-24-2021 Miscellaneous Notes Pt called and is notified of providers results and instructions. Pt voices understanding. Susan Thompson RN Please let her know that the bone density showed osteopenia. Should be taking vitamin D 800 I U daily if not already doing so, calcium 1200mg daily through diet or supplements, and routine weight bearing exercise. Appears she is taking 400 IU of vitamin D every other day. May want to consider medication such as Fosamax, can be discussed with PCP at upcoming visit if she would like. > 3% probability of hip fracture on BMD Patient calling she had bone density test done mid April and has not gotten results yet. Please advise 05/01/2021 8:50 AM - Radiology, [place] In Impression IMPRESSION: Osteopenia . [facility]LD [facility] ORG. CLASSIFICATION OF BONE MASS CLASSIFICATION T-SCORE Normal Greater than -1 Low Bone Mass Between -1 and -2.5 (Osteopenia) Osteoporosis Less than or equal to -2.5 Ecclesiastical Worker: YARITZA Transcribe Date/Time: May 01 2021 8:47A Dictated by : FERNANDEZ ROMERO MD This examination was interpreted and the report reviewed and electronically signed by: FERNANDEZ ROMERO MD on May 01 2021 8:48AM EST Results-Findings * * *Final Report* * * DATE OF EXAM: Apr 30 2021 1:42PM [facility] 0804 - BD DXA - AXIAL SKELETON / PROCEDURE REASON: Asymptomatic postmenopausal status * * * * Physician Interpretation * * * * PROCEDURE: BD DXA - AXIAL SKELETON INDICATION: Asymptomatic postmenopausal status TECHNIQUE: Low dose AP spine and hip images COMPARISON: LUMBAR SPINE: The bone mineral density from L1 through L4 is 0.953 grams per square centimeter which yields a T-score of -0.9 . Limited by degenerative scoliosis . LEFT HIP: The bone mineral density of the total region of the hip is 0.753 grams per square centimeter which yields a T-score of -1.5 . . LEFT FEMORAL NECK: The bone mineral density of the femoral neck is 0.588 grams per square centimeter which yields a T-score of -2.4 . . RIGHT HIP: The bone mineral density of the total region of the hip is 0.795 grams per square centimeter which yields a T-score of -1.2 . . RIGHT FEMORAL NECK: The bone mineral density of the femoral neck is 0.589 grams per square centimeter which yields a T-score of -2.3 . . 10-year Fracture Risk (FRAX): Major osteoporotic fracture risk 15 % Hip fracture risk 4 % documented in this encounter [facility] 05-23-2021 History of Present illness Narrative Maryuri Martinez 1945 REFERRING PHYSICIAN: Self CHIEF COMPLAINT: Consult (yearly thyroid check up) HPI: The patient is a 75 year old female presents with known right thyroid follicular nodule by FNA. She denies globus symptoms. She denies swallowing problems. She denies new onset hoarseness She is s/p FNA of right thyroid nodule done on 03/10/20. It was noted to be about 2 cm. Pathology reveals - DIAGNOSIS CYTOLOGY A. Fine needle aspiration, right thyroid nodule (cytospin and cell block): Adequate for evaluation. Negative, consistent with benign follicular nodule with cystic change. B. Fine needle aspiration, right thyroid nodule (smears): Adequate for evaluation. Negative, consistent with benign follicular/colloid nodule with cystic change. PAST MEDICAL HISTORY Diagnosis Date CAD (coronary artery disease) Dr. Kelley; sounds like has blockage with collaterals GERD (gastroesophageal reflux disease) History of bladder cancer ~2008 Dr. Cadena; yearly cystoscopy HTN (hypertension) Hyperlipidemia IBS (irritable bowel syndrome) swings back and forth with diarrhea and constipation PAST SURGICAL HISTORY Procedure Laterality Date CYSTO.PANENDO LAP, SUPRACERVIAL HYSTERECTOMY, >250G PAST SURGICAL HISTORY OF ~[address] Duggan PAST SURGICAL HISTORY OF Bilateral cataracts Current Outpatient Medications Medication Sig hydroCHLOROthiazide 12.5 mg capsule Take 1 capsule by mouth once daily. acetaminophen-codeine (TYLENOL-COD #3) 300-30 mg per tablet Take 0.5-1 tablets by mouth every 4 hours as needed for pain (For back pain) for up to 7 days. glucosamine/chondr arora A sod (OSTEO BI-FLEX ORAL) Take by mouth. Vitamin E, dl, acetate, (VITAMIN E) 400 unit capsule Take 400 Units by mouth once daily. Taking 1 capsule every other day. simvastatin (ZOCOR) 40 mg tablet Take 1 tablet by mouth once daily. amLODIPine (NORVASC) 5 mg tablet Take 5 mg by mouth once daily. esomeprazole (NEXIUM) 20 mg capsule Take 1 capsule by mouth once daily. As directed triamcinolone (KENALOG) 0.025 % cream Apply 1 application to affected area three times daily. aspirin, enteric coated (ASPIRIN, ENTERIC COATED) 81 mg EC tablet Take 81 mg by mouth once daily. imipramine HCl (TOFRANIL) 25 mg tablet Take 25 mg by mouth as needed. Take 1 tablet as needed at bedtime. (Patient not taking: Reported on 05/23/2021 ) oxybutynin (DITROPAN) 5 mg tablet Take 5 mg by mouth as needed. (Patient not taking: Reported on 05/23/2021 ) ALLERGIES: Morphine PERSONAL HISTORY: Social History Tobacco Use Smoking status: Former Smoker Packs/day: 1.00 Years: 35.00 Pack years: 35.00 Types: Cigarettes Smokeless tobacco: Never Used Vaping Use Vaping Use: Never used Substance Use Topics Alcohol use: No Drug use: Not on file FAMILY HISTORY Problem Relation Age of Onset Lung Cancer Mother Heart Father Cancer Father prostate/skin The review of systems data was entered by the nurse and reviewed by hi Nursing Notes: Liz Nava LPN 05/23/2021 2:03 PM Signed REVIEW OF SYSTEMS: General: The patient denies fatigue, denies weight loss, denies weight gain, denies feeling hot, and denies feelings of cold. Eyes: The patient denies glaucoma, notes eye injury/surgery, does wear glasses or contacts. Ear/Nose/Throat: The patient denies allergies, denies hayfever, denies ear infections, and denies bloody noses. Cardiovascular: The patient notes chest pain, denies heart disease, notes high blood pressure,denies cardiac stent, denies prior heart attack, denies irregular heart beat, notes high cholesterol, denies poor circulation, denies heart failure, other cardiac issues, denies claudication, denies cold feet, denies peripheral arterial stent. Respiratory: The patient denies tuberculosis, notes pneumonia, denies frequent cough, denies pulmonary embolism, denies shortness of breath, and denies coughing up blood. Gastrointestinal: The patient denies difficulty swallowing, notes acid reflux, denies ulcers, denies vomiting, notes jaundice/hepatitis, notes gallbladder problems, denies black or tarry stools, notes hemorrhoids, denies bleeding from rectum, denies diverticulitis, denies constipation, denies diarrhea, denies loss of stool control, and denies hernias. Kidney/Bladder: The patient denies kidney stones, denies urine infections, and denies bloody urine. Skin: The patient denies a history of skin cancer, denies bleeding/changing moles, and denies a history of skin rash. Neurologic: The patient denies a history of epilepsy/convulsions, denies headaches, denies head/spinal injuries, and denies stroke/TIA. Psychiatric: The patient denies psychiatric medications, denies depression, and denies voices, denies substance abuse. Endocrine: The patient denies thyroid disorders, denies diabetes, and denies hormonal problems. Hematologic: The patient notes a history of bruising, denies bleeding, and denies anemia, denies blood clots. Infections: The patient notes a history of measles and mumps, denies rheumatic fever, and denies sexually transmitted diseases. Musculoskeletal: The patient notes back pain/injury, notes back problems, denies sciatica, notes knee/foot trouble, denies arthritis, or denies gout. When was patient's last Mammogram screening? 2020 Last Colonoscopy: 2017 Liz Nava LPN PHYSICAL EXAMINATION: General: The patient is 75 year old female, well nourished, well hydrated in no acute distress. The patient is oriented to time, place, and person. VITALS: Blood pressure 102/66, pulse 102, temperature 37.1 C (98.7 F), height 160 cm (5' 3 ), weight 69.9 kg (154 lb), SpO2 99 %. Body mass index is 27.28 kg/m . Head: Normal cephalic, atraumatic Eyes: pupils are equally round, sclera are clear/anicteric Neck is supple with no tracheal deviation Respiratory: Normal respiratory excursion and pattern. Abdominal exam: benign Extremities: no clubbing, cyanosis or edema. Neuro: non focal Psych: normal mood Assessment IMPRESSION: PLAN: I have discussed the above with the patient. She has not had her follow up US of thyroid I will order US thyroid and call patient with results The patient acknowledges above. I have answered all questions to the patient s satisfaction and the patient has no further questions. I have confirmed and edited as necessary, the PFSH and ROS obtained by others. . Diagnoses: (E04.1) Right thyroid nodule (primary encounter diagnosis) Return to Clinic: The patient is instructed to follow-up with me as per needed. I spent a total of 21 minutes on the date of the service which included preparing to see the patient with review of any pertinent laboratory studies/radiological imaging/medical records from other medical facilities such as [facility], [id number] patient care, obtaining oral medical history from the patient in this encounter, performing a medically appropriate examination, counseling and educating the patient/family/caregiver, and ordering and/or scheduling of medications/tests/procedures, and completing appropriate medical documentation. Kamila Navarro MD documented in this encounter [facility] 05-23-2021 Nurse Note REVIEW OF SYSTEMS: General: The patient denies fatigue, denies weight loss, denies weight gain, denies feeling hot, and denies feelings of cold. Eyes: The patient denies glaucoma, notes eye injury/surgery, does wear glasses or contacts. Ear/Nose/Throat: The patient denies allergies, denies hayfever, denies ear infections, and denies bloody noses. Cardiovascular: The patient notes chest pain, denies heart disease, notes high blood pressure,denies cardiac stent, denies prior heart attack, denies irregular heart beat, notes high cholesterol, denies poor circulation, denies heart failure, other cardiac issues, denies claudication, denies cold feet, denies peripheral arterial stent. Respiratory: The patient denies tuberculosis, notes pneumonia, denies frequent cough, denies pulmonary embolism, denies shortness of breath, and denies coughing up blood. Gastrointestinal: The patient denies difficulty swallowing, notes acid reflux, denies ulcers, denies vomiting, notes jaundice/hepatitis, notes gallbladder problems, denies black or tarry stools, notes hemorrhoids, denies bleeding from rectum, denies diverticulitis, denies constipation, denies diarrhea, denies loss of stool control, and denies hernias. Kidney/Bladder: The patient denies kidney stones, denies urine infections, and denies bloody urine. Skin: The patient denies a history of skin cancer, denies bleeding/changing moles, and denies a history of skin rash. Neurologic: The patient denies a history of epilepsy/convulsions, denies headaches, denies head/spinal injuries, and denies stroke/TIA. Psychiatric: The patient denies psychiatric medications, denies depression, and denies voices, denies substance abuse. Endocrine: The patient denies thyroid disorders, denies diabetes, and denies hormonal problems. Hematologic: The patient notes a history of bruising, denies bleeding, and denies anemia, denies blood clots. Infections: The patient notes a history of measles and mumps, denies rheumatic fever, and denies sexually transmitted diseases. Musculoskeletal: The patient notes back pain/injury, notes back problems, denies sciatica, notes knee/foot trouble, denies arthritis, or denies gout. When was patient's last Mammogram screening? 2020 Last Colonoscopy: 2017 Liz Nava LPN documented in this encounter [facility] 05-08-2021 History of Present illness Narrative This note was created using [employer]uation App. Subjective Maryuri Martinez is a 75 year old female. She had LLQ pain characterized as hurting this past Friday. She was constipated. She took Colace with resolution of symptoms. Her stools have gotten smaller at times. Her colonoscopy was up to date and last done by Dr. Duggan. Review of Systems Constitutional: Negative for appetite change, fatigue, fever and unexpected weight change. Gastrointestinal: Negative for blood in stool, diarrhea, nausea and vomiting. Genitourinary: Negative for difficulty urinating, dysuria and flank pain. ACTIVE PROBLEM LIST Postmenopausal Atrophic Vaginitis Hyperlipidemia Htn (Hypertension) Gerd (Gastroesophageal Reflux Disease) Cad (Coronary Artery Disease) Current Outpatient Medications Medication Sig hydroCHLOROthiazide 12.5 mg capsule Take 1 capsule by mouth once daily. glucosamine/chondr arora A sod (OSTEO BI-FLEX ORAL) Take by mouth. Vitamin E, dl, acetate, (VITAMIN E) 400 unit capsule Take 400 Units by mouth once daily. Taking 1 capsule every other day. simvastatin (ZOCOR) 40 mg tablet Take 1 tablet by mouth once daily. amLODIPine (NORVASC) 5 mg tablet Take 5 mg by mouth once daily. esomeprazole (NEXIUM) 20 mg capsule Take 1 capsule by mouth once daily. As directed triamcinolone (KENALOG) 0.025 % cream Apply 1 application to affected area three times daily. aspirin, enteric coated (ASPIRIN, ENTERIC COATED) 81 mg EC tablet Take 81 mg by mouth once daily. imipramine HCl (TOFRANIL) 25 mg tablet Take 25 mg by mouth as needed. Take 1 tablet as needed at bedtime. oxybutynin (DITROPAN) 5 mg tablet Take 5 mg by mouth as needed. acetaminophen-codeine (TYLENOL-COD #3) 300-30 mg per tablet Take 0.5-1 tablets by mouth every 4 hours as needed for pain (For back pain) for up to 7 days. No current facility-administered medications for this visit. Objective BP 120/78 (BP Site: Left Arm, BP Position: Sitting, BP Cuff Size: Large Adult) Pulse 92 Temp 36.8 C (98.3 F) (Temporal Artery) Resp 16 Wt 68.5 kg (151 lb) BMI 26.75 kg/m Physical Exam Constitutional: Appearance: Normal appearance. She is not ill-appearing. Pulmonary: Effort: Pulmonary effort is normal. Abdominal: General: Abdomen is flat. Bowel sounds are normal. Palpations: Abdomen is soft. Tenderness: There is no abdominal tenderness. There is no left CVA tenderness. Hernia: No hernia is present. Assessment and Plan 1. LLQ abdominal pain - ICD9: 789.04, ICD10: R10.32 (primary diagnosis) Differential Diagnosis includes Constipation 2. Constipation, unspecified constipation type - ICD9: 564.00, ICD10: K59.00 Chronic issue, but with possible change in bowel pattern. We agreed to observe. If symptoms recur with increasing frequency, consider sooner colonoscopy. Krishna Chowdhury MD documented in this encounter [facility] Diagnosis Right thyroid nodule- Primary Nontoxic uninodular goiter [facility] Diagnosis Encounter for screening mammogram for breast cancer [facility] Diagnosis Medicare annual wellness visit, subsequent- Primary Routine general medical examination at a health care facility Primary hypertension Unspecified essential hypertension Mixed hyperlipidemia Chronic pain of both knees Primary osteoarthritis of both knees Primary localized osteoarthrosis, lower leg Greater trochanteric pain syndrome of left lower extremity [facility]* Diagnosis Encounter for therapeutic drug monitoring- Primary [facility]* Diagnosis Chronic pain of both knees Primary osteoarthritis of both knees Primary localized osteoarthrosis, lower leg Greater trochanteric pain syndrome of left lower extremity [facility]* Diagnosis Gastroesophageal reflux disease without esophagitis- Primary Esophageal reflux Thyroid nodule greater than or equal to 1 cm in diameter incidentally noted on imaging study Acute cough [facility]* Diagnosis Gastroesophageal reflux disease without esophagitis- Primary Esophageal reflux Thyroid nodule greater than or equal to 1 cm in diameter incidentally noted on imaging study Post-nasal drainage Unspecified sinusitis (chronic) [facility]* Diagnosis Mixed hyperlipidemia- Primary Chronic pain of both knees Primary hypertension Unspecified essential hypertension Primary osteoarthritis of both knees Primary localized osteoarthrosis, lower leg Greater trochanteric pain syndrome of left lower extremity Osteopenia, unspecified location Hypokalemia Hypopotassemia Encounter for long-term current use of medication Elevated glucose Other abnormal glucose Breast cancer screening by mammogram Dense breasts Inconclusive mammogram History of bladder cancer Personal history of malignant neoplasm of bladder [facility]* Diagnosis Varicose veins of left lower extremity with pain- Primary Varicose veins of lower extremities with other complications Chronic midline low back pain without sciatica [facility]* Diagnosis Abnormal mammogram Abnormal mammogram, unspecified [facility] Diagnosis Encounter for screening mammogram for breast cancer [facility] Diagnosis Thyroid nodule greater than or equal to 1 cm in diameter incidentally noted on imaging study [facility]* Diagnosis Breast cancer screening by mammogram Dense breasts Inconclusive mammogram documented in this encounter [facility] for referral (narrative)* Diagnostic Procedure Only (Routine) - Closed Specialty Diagnoses / Procedures Referred By Heavenlyac t Referred To Contact US IMAGING Diagnoses Right thyroid nodule Procedures US THYROID/PARATHYROID US SOFT TISSUE HEAD & NECK REAL TIME IMGE Kamila Curtis MD [address] [place] [address] Us Imaging Referral ID Status Reason Start Date Expiration Date V isits Requested Visits Authorized [id number] Closed Auto-Generate d Referral 05/23/2021 06/22/2022 1 1 [facility] for referral (narrative)* Diagnostic Procedure Only (Routine) - Pending Review Specialty Diagnoses / Procedures Referred By Kassandra jean Referred To Contact BR IMAGING Diagnoses Encounter for screening mammogram for breast cancer Procedures FILIBERTO SCREENING SCREENING MAMMOGRAPHY BI 2-VIEW BREAST INC CAD Percy Vincent MD [address] [place] [address] [facility] [address] [place] [address] Referral ID Status Reason Start Date Expiration Date Visits Requested Visits Authorized [id number] Pending Review Auto-Generat ed Referral 08/22/2021 09/21/2022 1 1 [facility] for referral (narrative)* Diagnostic Procedure Only (Routine) - Authorized Specialty Diagnoses / Procedures Referred By Contac t Referred To Contact US IMAGING Diagnoses Thyroid nodule greater than or equal to 1 cm in diameter incidentally noted on imaging study Procedures US THYROID/PARATHYROID US SOFT TISSUE HEAD & NECK REAL TIME IMGE Samantha Elias APRN.DARIUS [address] [place] [address] [facility] Imaging Referral ID Status Reason Start Date Expiration Date Visits Requested Visits Authorized [id number] Authorized Auto-Generat ed Referral 06/13/2022 07/13/2023 1 1 [facility] for referral (narrative)* Diagnostic Procedure Only (Routine) - Authorized Specialty Diagnoses / Procedures Referred By Contac t Referred To Contact BR IMAGING Diagnoses Breast cancer screening by mammogram Dense breasts Procedures FILIBERTO SCREENING W ROMI SCREENING DIGITAL BREAST TOMOSYNTHESIS BI SCREENING MAMMOGRAPHY BI 2-VIEW BREAST INC Percy John MD [address] [place] [address] [facility] [address] [place] [address] Referral ID Status Reason Start Date Expiration Date Visits Requested Visits Authorized [id number] Authorized Auto-Generat ed Referral 11/08/2022 12/08/2023 1 1 [facility] for referral (narrative)* Diagnostic Procedure Only (Routine) - Closed Specialty Diagnoses / Procedures Referred By Contac t Referred To Contact BR IMAGING Diagnoses Encounter for screening mammogram for breast cancer Procedures FILIBERTO SCREENING SCREENING MAMMOGRAPHY BI 2-VIEW BREAST INC Percy John MD [address] [place] [address] [facility] [address] [place] [address] Referral ID Status Reason Start Date Expiration Date V isits Requested Visits Authorized [id number] Closed Auto-Generate d Referral 08/22/2021 09/21/2022 1 1 [facility] for referral (narrative)* Diagnostic Procedure Only (Routine) - Closed Specialty Diagnoses / Procedures Referred By Contac t Referred To Contact US IMAGING Diagnoses Thyroid nodule greater than or equal to 1 cm in diameter incidentally noted on imaging study Procedures US THYROID/PARATHYROID US SOFT TISSUE HEAD & NECK REAL TIME IMGE Samantha Elias APRN.CNS [address] [place] [address] [place] [id number] Referral ID Status Reason Start Date Expiration Date V isits Requested Visits Authorized [id number] Closed Auto-Generate d Referral 06/13/2022 07/13/2023 1 1 [facility] for referral (narrative)* Diagnostic Procedure Only (Routine) - Closed Specialty Diagnoses / Procedures Referred By Contac t Referred To Contact [facility] IMAGING Diagnoses Breast cancer screening by mammogram Dense breasts Procedures FILIBERTO SCREENING W ROMI SCREENING DIGITAL BREAST TOMOSYNTHESIS BI SCREENING MAMMOGRAPHY BI 2-VIEW BREAST INC Percy John MD [address] [place] [id number] [facility] [address] [place] [address] Referral ID Status Reason Start Date Expiration Date V isits Requested Visits Authorized [id number] Closed Auto-Generate d Referral 11/08/2022 12/08/2023 1 1 [facility] for visit Narrative* Diagnostic Procedure Only (Routine) - Closed Specialty Diagnoses / Procedures Referred By Contac t Referred To Contact [facility] IMAG[facility] Diagnoses Abnormal mammogram Procedures FILIBERTO DIAGNOSTIC LT DIAGNOSTIC MAMMOGRAPHY COMPUTER-AIDED DETCJ UNI Percy Vincent MD [address] [place] [address] [facility] [address] [place] [address] Referral ID Status Reason Start Date Expiration Date V isits Requested Visits Authorized [id number] Closed Auto-Generate d Referral 12/20/2021 01/19/2023 1 1 [facility] for visit Narrative* Diagnostic Procedure Only (Routine) - Closed Specialty Diagnoses / Procedures Referred By Contac t Referred To Contact [facility] IMAG[facility] Diagnoses Encounter for screening mammogram for breast cancer Procedures FILIBERTO SCREENING SCREENING MAMMOGRAPHY BI 2-VIEW BREAST INC Percy John MD [address] [place] [address] [facility] [address] [place] [address] Referral ID Status Reason Start Date Expiration Date V isits Requested Visits Authorized [id number] Closed Auto-Generate d Referral 08/22/2021 09/21/2022 1 1 [facility] Diagnostic Procedure Only (Routine) - Closed Specialty Diagnoses / Procedures Referred By Contac t Referred To Contact [facility] IM[facility] Diagnoses Breast cancer screening by mammogram Dense breasts Procedures FILIBERTO SCREENING W ROMI SCREENING DIGITAL BREAST TOMOSYNTHESIS BI SCREENING MAMMOGRAPHY BI 2-VIEW BREAST INC Percy John MD [address] [place] [address] [facility] [address] [place] [address] Referral ID Status Reason Start Date Expiration Date V isits Requested Visits Authorized [id number] Closed Auto-Generate d Referral 11/08/2022 12/08/2023 1 1 [facility] Reason for Referral Specialty Diagnoses / Procedures Referred By Contac t Referred To Contact Diagnoses Chronic midline low back pain without sciatica Procedures CONSULT TO CHIROPRACTOR OFFICE/OUTPATIENT [facility] MDM 60-74 MINUTES Samantha Perez, ASSEMBLY LEADER.NANOSYSTEMS ENGINEER [address] [place] [address] Referral ID Status Reason Start Date Expiration Date Visits Requested Visits Authorized [id number] Pending Review PCP Requested Referral 3 12/09/2023 1 1 Specialty Diagnoses / Procedures Referred By Contac t Referred To Contact [facility] Diagnoses Chronic midline low back pain without sciatica Procedures CONSULT TO PHYSICAL THERAPY PHYSICAL THERAPY EVALUATION HIGH COMPLEX 45 MINS Samantha Perez, ASSEMBLY LEADER.NANOSYSTEMS ENGINEER [address] [place] [address] [facility] [place] [address] [place] [address] Referral ID Status Reason Start Date Expiration Date Visits Requested Visits Authorized [id number] Pending Review PCP Requested Referral Auto-Generate d Referral 3 12/09/2023 99 99 Specialty Diagnoses / Procedures Referred By Contac t Referred To Contact Vascular Medicine Diagnoses Varicose veins of left lower extremity with pain Procedures CONSULT TO VASCULAR MEDICINE OFFICE/OUTPATIENT [facility] HIGH MDM 60-74 MINUTES Samantha Perez, ASSEMBLY LEADER.NANOSYSTEMS ENGINEER [address] [place] [address] Referral ID Status Reason Start Date Expiration Date Visits Requested Visits Authorized [id number] Authorized PCP Requested Referral 3 12/09/2023 1 1 Summary Purpose Family History No Family History Records Found Advance Directives No Advanced Directives Records Found Additional Source Comments Source Comments (unrecognize d section and content) In the event this informatio n is protected by the Federal Confidentiality of Alcohol and Drug Abuse Patient Records regulations: The Federal rules restrict any use of the information to criminally investigate or prosecute any alcohol or drug abuse patient.[facility] the event this information is protected by the Federal Confidentiality of Alcohol and Drug Abuse Patient Records regulations: The Federal rules restrict any use of the information to criminally investigate or prosecute any alcohol or drug abuse patient.[facility] the event this information is protected by the Federal Confidentiality of Alcohol and Drug Abuse Patient Records regulations: The Federal rules restrict any use of the information to criminally investigate or prosecute any alcohol or drug abuse patient.[facility] the event this information is protected by the Federal Confidentiality of Alcohol and Drug Abuse Patient Records regulations: The Federal rules restrict any use of the information to criminally investigate or prosecute any alcohol or drug abuse patient.[facility] the event this information is protected by the Federal Confidentiality of Alcohol and Drug Abuse Patient Records regulations: The Federal rules restrict any use of the information to criminally investigate or prosecute any alcohol or drug abuse patient.[facility] the event this information is protected by the Federal Confidentiality of Alcohol and Drug Abuse Patient Records regulations: The Federal rules restrict any use of the information to criminally investigate or prosecute any alcohol or drug abuse patient.[facility] the event this information is protected by the Federal Confidentiality of Alcohol and Drug Abuse Patient Records regulations: The Federal rules restrict any use of the information to criminally investigate or prosecute any alcohol or drug abuse patient.[facility] the event this information is protected by the Federal Confidentiality of Alcohol and Drug Abuse Patient Records regulations: The Federal rules restrict any use of the information to criminally investigate or prosecute any alcohol or drug abuse patient.[facility] the event this information is protected by the Federal Confidentiality of Alcohol and Drug Abuse Patient Records regulations: The Federal rules restrict any use of the information to criminally investigate or prosecute any alcohol or drug abuse patient.[facility] the event this information is protected by the Federal Confidentiality of Alcohol and Drug Abuse Patient Records regulations: The Federal rules restrict any use of the information to criminally investigate or prosecute any alcohol or drug abuse patient.[facility] the event this information is protected by the Federal Confidentiality of Alcohol and Drug Abuse Patient Records regulations: The Federal rules restrict any use of the information to criminally investigate or prosecute any alcohol or drug abuse patient.[facility] the event this information is protected by the Federal Confidentiality of Alcohol and Drug Abuse Patient Records regulations: The Federal rules restrict any use of the information to criminally investigate or prosecute any alcohol or drug abuse patient.[facility] the event this information is protected by the Federal Confidentiality of Alcohol and Drug Abuse Patient Records regulations: The Federal rules restrict any use of the information to criminally investigate or prosecute any alcohol or drug abuse patient.[facility] the event this information is protected by the Federal Confidentiality of Alcohol and Drug Abuse Patient Records regulations: The Federal rules restrict any use of the information to criminally investigate or prosecute any alcohol or drug abuse patient.[facility] the event this information is protected by the Federal Confidentiality of Alcohol and Drug Abuse Patient Records regulations: The Federal rules restrict any use of the information to criminally investigate or prosecute any alcohol or drug abuse patient.[facility] the event this information is protected by the Federal Confidentiality of Alcohol and Drug Abuse Patient Records regulations: The Federal rules restrict any use of the information to criminally investigate or prosecute any alcohol or drug abuse patient.[facility] HospitalIn the event this information is protected by the Federal Confidentiality of Alcohol and Drug Abuse Patient Records regulations: The Federal rules restrict any use of the information to criminally investigate or prosecute any alcohol or drug abuse patient.[facility] HospitalIn the event this information is protected by the Federal Confidentiality of Alcohol and Drug Abuse Patient Records regulations: The Federal rules restrict any use of the information to criminally investigate or prosecute any alcohol or drug abuse patient.[facility] HospitalIn the event this information is protected by the Federal Confidentiality of Alcohol and Drug Abuse Patient Records regulations: The Federal rules restrict any use of the information to criminally investigate or prosecute any alcohol or drug abuse patient.[facility] HospitalIn the event this information is protected by the Federal Confidentiality of Alcohol and Drug Abuse Patient Records regulations: The Federal rules restrict any use of the information to criminally investigate or prosecute any alcohol or drug abuse patient.[facility] HospitalIn the event this information is protected by the Federal Confidentiality of Alcohol and Drug Abuse Patient Records regulations: The Federal rules restrict any use of the information to criminally investigate or prosecute any alcohol or drug abuse patient.[facility] HospitalIn the event this information is protected by the Federal Confidentiality of Alcohol and Drug Abuse Patient Records regulations: The Federal rules restrict any use of the information to criminally investigate or prosecute any alcohol or drug abuse patient.[facility] HospitalIn the event this information is protected by the Federal Confidentiality of Alcohol and Drug Abuse Patient Records regulations: The Federal rules restrict any use of the information to criminally investigate or prosecute any alcohol or drug abuse patient.[facility] HospitalIn the event this information is protected by the Federal Confidentiality of Alcohol and Drug Abuse Patient Records regulations: The Federal rules restrict any use of the information to criminally investigate or prosecute any alcohol or drug abuse patient.[facility] HospitalIn the event this information is protected by the Federal Confidentiality of Alcohol and Drug Abuse Patient Records regulations: The Federal rules restrict any use of the information to criminally investigate or prosecute any alcohol or drug abuse patient.[facility] Reason for Visit (unrecogniz ed section and content) Reason Comments F/U on Bone Density Results Results Reason Comments Consult yearly thyroid check up Reason Comments Results Reason Comments Patient Update Patient Question Reason Comments Vaginal Problem Reason Comments Medicare Wellness Exam Reason Comments Mammogram Result Call Back Reason Comments Orders Reason Onset Date Comments Refill Request 04/25/2022 Reason Comments Throat Problem Reason Comments Results US Reason Comments Follow Up Reason Comments Results, Lab Reason Onset Date Comments Yearly Exam Breast Problem 11/08/2022 Mammogram at [facility] Reason Comments Follow Up outside L calf Reason Comments Radiology US Specialty Diagnoses / Procedures Referred By Kassandra jean Referred To Contact [facility] IM[facility] Diagnoses Thyroid nodule greater than or equal to 1 cm in diameter incidentally noted on imaging study Procedures US THYROID/PARATHYROID US SOFT TISSUE HEAD & NECK REAL TIME IMGE Samantha Elias, ASSEMBLY LEADER.NANOSYSTEMS ENGINEER [address] [place] [address] [place] [address] Referral ID Status Reason Start Date Expiration Date V isits Requested Visits Authorized [id number] Closed Auto-Generate d Referral 06/13/2022 07/13/2023 1 1 Care Teams (unrecognized sec tion and content) Box Worker Relationship Specialty Start Date End Date Percy Vincent MD [facility] [place] [address] PCP - General Internal Medicine 09/01/15 Box Worker Relationship Specialty Start Date End Date Peryc Vincent MD [address] [place] [address] PCP - General Internal Medicine 09/01/15 Box Worker Relationship Specialty Start Date End Date Percy Vincent MD [facility] [place] [address] PCP - General Internal Medicine 09/01/15 Box Worker Relationship Specialty Start Date End Date Percy Vincent MD [address] [place] [address] PCP - General Internal Medicine 09/01/15 Box Worker Relationship Specialty Start Date End Date Percy Vincent MD [address] [place] [address] PCP - General Internal Medicine 09/01/15 Box Worker Relationship Specialty Start Date End Date Percy Vincent MD [address] [place] [address] PCP - General Internal Medicine 09/01/15 Box Worker Relationship Specialty Start Date End Date Percy Vincent MD [facility] [place] [address] PCP - General Internal Medicine 09/01/15 Box Worker Relationship Specialty Start Date End Date Percy Vincent MD [address] [place] [address], [place] [address] PCP - General Internal Medicine 09/01/15 Box Worker Relationship Specialty Start Date End Date Percy Vincent MD [address] [place] [address], [place] [address] PCP - General Internal Medicine 09/01/15 Box Worker Relationship Specialty Start Date End Date Percy Vincent MD [address] [place] [address], [place] [address] PCP - General Internal Medicine 09/01/15 Box Worker Relationship Specialty Start Date End Date Percy Vincent MD [address] [place] [address], [place] [address] PCP - General Internal Medicine 09/01/15 Box Worker Relationship Specialty Start Date End Date Percy Vincent MD [address] [place] [address], [place] [address] PCP - General Internal Medicine 09/01/15 Box Worker Relationship Specialty Start Date End Date Percy Vincent MD [address] [place] [address], [place] [address] PCP - General Internal Medicine 09/01/15 Box Worker Relationship Specialty Start Date End Date Percy Vincent MD [address] [place] [address], [place] [address] PCP - General Internal Medicine 09/01/15 Box Worker Relationship Specialty Start Date End Date Percy Vincent MD [address] [place] [address], [place] [address] PCP - General Internal Medicine 09/01/15 Box Worker Relationship Specialty Start Date End Date Percy Vincent MD [address] [place] [address] PCP - General Internal Medicine 09/01/15 Box Worker Relationship Specialty Start Date End Date Percy Vincent MD [address] [place] [address] PCP - General Internal Medicine 09/01/15 Box Worker Relationship Specialty Start Date End Date Percy Vincent MD [address] [place] [address] PCP - General Internal Medicine 09/01/15 Box Worker Relationship Specialty Start Date End Date Percy Vincent MD [address] [place] [address] PCP - General Internal Medicine 09/01/15 Box Worker Relationship Specialty Start Date End Date Percy Vincent MD [address] [place] [address] PCP - General Internal Medicine 09/01/15 Box Worker Relationship Specialty Start Date End Date Percy Vincent MD [address] [place] [address] PCP - General Internal Medicine 09/01/15 Box Worker Relationship Specialty Start Date End Date Percy Vincent MD [address] [place] [address] PCP - General Internal Medicine 09/01/15 INFORMATION SOURCE (unrecogn ized section and content) FOR RECORDS PERTAINING TO PATIENTS WHO ARE OR HAVE BEEN ENROLLED IN A CHEMICAL DEPENDENCY/SUBSTANCEABUSE PROGRAM, SOME INFORMATION MAY BE OMITTED. This clinical summary was aggregated from multiple sources. Caution should be exercised in using it in the provision of clinical care. This summary normalizes information from multiple sources, and as a consequence, information in this document may materially change the coding, format and clinical context of patient data. In addition, data may be omitted in some cases. CLINICAL DECISIONS SHOULD BE BASED ON THE PRIMARY CLINICAL RECORDS. [facility] [employer] [facility]. provides no warranty or guarantee of the accuracy or completeness of information in this document.
[2023-03-23 16:20] LABS: Absolute Lymphocyte Count 2.04 X10^3/uL (0.83-4.51); Absolute Neutrophil Count 1.9 X10^3/uL (2.0-7.7); Basophil# 0.04 X10^3/uL; Basophil% 0.9 % (0-1); Eosinophil# 0.16 X10^3/uL; Eosinophils% 3.5 % (0-5); Hematocrit 34.1 % (37-47); Hemoglobin 11.5 g/dL (12.0-15.0); Lymphocyte # 2.04 X10^3/ul (0.83-4.51); Lymphocyte % 44.4 % (19-41); Mean Corp Hgb Conc 33.7 g/dL (32-36); Mean Corpuscular Hgb 33.6 pg (27.0-32.0); Mean Corpuscular Volume 99.7 fL (81-99); Mean Platelet Vol. 12.1 fl (6.2-12.0); Monocyte# 0.38 X10^3/uL; Monocyte% 8.3 % (0-10); NRBC Flagged by Analyzer 0 % (0-5); Neutrophil # 1.89 X10^3/uL (2.7-7.7); Neutrophil % 41.2 % (47-70); Platelet Count 274 K/mm3 (150-450); RBC Distribution Width CV 13.3 % (11.6-14.6); RBC Distribution Width SD 48.1 fl (35.1-43.9); Red Blood Count 3.42 M/mm3 (4.2-5.4); White Blood Count 4.6 K/mm3 (4.4-11.0)
[2023-03-23 16:40] LABS: Anion Gap 4 (5-15); BUN 19 mg/dL (7-18); BUN/Creat Ratio 22.8 RATIO (10-20); CRP < 2.90 mg/L (0.0-3.0); Calcium,Total 9.1 mg/dL (8.5-10.1); Chloride 108 mmol/L (98-107); Creatinine, Serum 0.83 mg/dL (0.55-1.02); EST Glomerular Filtration Rate 71 mL/min (>60); Est Glom Filt Rate - Afr Amer 86 mL/min (>60); Estimated Creatinine Clearance 55.08 ml/min; Glucose 96 mg/dL (74-106); Potassium 3.7 mmol/L (3.5-5.1); Sodium Level 141 mmol/L (136-145)
[2023-03-23 18:21] VITALS: BP 151/76; PULSE 57; RESP 14; O2SAT 99
== END 2023-03-23 18:53 | disposition home or self-care (01) ==
PROVIDERS: Emergency Provider Emergency Medicine; PCP Internal Medicine; Visit Provider Emergency Medicine
DX: R51.9 Headache, unspecified (principal); I25.10 Atherosclerotic heart disease of native coronary artery without angina pectoris; I10 Essential (primary) hypertension; E78.5 Hyperlipidemia, unspecified; Z87.891 Personal history of nicotine dependence; K21.9 Gastro-esophageal reflux disease without esophagitis
CPT/HCPCS: 70496; 80048; 85025; 86140; 99282; Q9967

== ENCOUNTER → 2023-08-11 | Outpatient (CLI) | payer MEDICARE, OTHER, SELFPAY ==
--- NOTE | 2023-08-11 10:31 | CYSPIN_PTH ---
PATIENT: NU ARREDONDO LOC: [facility] U#:[id number] AGE/SX: 77/F ROOM: RE08/11/[address]: Dr. Vikash Workman MD : 1945 BED: DIS: 08/11/2023 SPEC #: [id number] RECD: 08/12/23 08:20 STATUS: SONU REQ #: [id number] RYAN: 08/11/23 10:[address]: Vikash Workman DEPT: CYTOLOGY RECD BY: Unique Mahoney ENTERED: 08/12/23 08:21 SP TYPE: CYSPIN FL OTHR DR: Dr. Carrie Vincent MD Tissues: Urine Procedures: Pap Stain (control) Special Stain Group II Cytospin Fluid HEADER OPERATION: Not noted PRE-OP DIAGNOSIS: Malignant neoplasm of bladder, unspecified TISSUE SUBMITTED: Urine for cytology DIAGNOSIS CYTOLOGY Urine for cytology (cytospin): Negative for high grade urothelial carcinoma ([facility]), [facility] Category II. See comment. SJ/mr 08/12/2023 COMMENT Clinical correlation and appropriate follow up are necessary. CYTOLOGY STUDY Slides are reviewed. CYTOLOGY GROSS Received is 90 ml of yellow-cloudy fluid labeled with the patient's name and and designated per the requisition as urine. Submitted for cytology preparation. Mr 08/12/2023 TC:5 CPT: 63889
[2023-08-12 08:36] LABS: Cytology, Body Fluid / CSF SEE PATHOLOGY REPORT
== END | disposition home or self-care (01) ==
PROVIDERS: PCP Internal Medicine; Referring Provider Urology; Visit Provider Urology
DX: C67.9 Malignant neoplasm of bladder, unspecified (principal)
CPT/HCPCS: 88108; 88313

== ENCOUNTER 2023-08-20 14:02 | Emergency (ER) | payer MEDICARE, OTHER, SELFPAY ==
[2023-08-20 14:02] VITALS: BP 178/89; PULSE 93; RESP 18; TEMP 36.2; O2SAT 99; BMI 27.0
[2023-08-20 16:02] VITALS: BP 155/87; PULSE 87; RESP 18; O2SAT 97
--- NOTE | 2023-08-20 16:33 | EKG12_ITS ---
Test Reason : DIZZY Blood Pressure : / mmHG Vent. Rate : 066 BPM Atrial Rate : 066 BPM P-R Int : 174 ms QRS Dur : 080 ms QT Int : 378 ms P-R-T Axes : 034 -17 018 degrees QTc Int : 396 ms Sinus rhythm with Premature atrial complexes Otherwise normal ECG Confirmed by JAMI HEARN, ELVIRA ([id number]), senior technical editor DERRICK CORTES ([id number]) on 08/22/2023 9:31:32 AM Referred By: Confirmed By:ELVIRA FARRELL MD
[2023-08-20 17:04] VITALS: BP 132/73; BP 140/89; BP 149/90; PULSE 73; PULSE 76
--- NOTE | 2023-08-20 17:27 | CT_ITS ---
STUDY: CT BRAIN WITHOUT CONTRAST REASON FOR EXAM: Female, 77 years old. Dizziness RADIATION DOSAGE (If Supplied By Facility): CTDIvol = ( 44.99 ) mGy, DLP = ( 812.98 ) mGycm TECHNIQUE: Transaxial CT imaging of the brain was performed without administration of intravenous contrast material. Individualized dose optimization techniques were used for this CT. COMPARISON: No relevant priors. FINDINGS: Normal soft tissue structures. Normal calvarium. Normal size ventricles and extra-axial spaces for the patient''s age. Normal white matter tracts of the cerebral hemispheres. Normal basal ganglia and thalami. Normal brainstem. Normal cerebellum. There is no intracranial hemorrhage. There are no findings of an acute ischemic infarction. Normal visualized paranasal sinuses. CT/Brain/Head without Contrast IMPRESSION: No acute intracranial pathology of the brain. Electronically Signed: Jere Vallecillo DO at 18:44 EDT ,
--- NOTE | 2023-08-20 17:28 | EX.ED.DYSGE1 ---
HPI History of Present Illness Chief Complaint: Syncope Detail of Chief Complaint: Dizziness Informant: patient and spouse/S.O. Onset/Context/Timing Onset: Today and Yesterday Current Severity: Gone Maximum Severity: Mild Narrative Narrative: 77-year-old female history of hypertension. History of headaches. Extensive workup in April of this year was negative. Negative CTA head and neck. States that last night started having rolling type of dizziness she said it really was not vertigo and the room was not spinning. Lasted seconds and resolved. She felt fine today and at 7 AM this morning had similar symptoms. It resolved and came back around 1. Currently she is symptom-free. She denies any headache. She denies any fall or head trauma. She denies any vomiting or diarrhea. No recent illness. No fever. Prior similar symptoms: No Recent Illness/Hospitalization: No PFSH PFSH Medical History Wears glasses Post-menopausal Cancer Alcohol use History of steroid therapy Arthritis High cholesterol Back pain Blackout Gastric reflux Former smoker Shortness of breath on exertion Leg cramps Normal stress echocardiogram History of echocardiogram Cardiology follow-up encounter COVID-19 Carotid arterial disease Carotid artery bruit Chest pain Atherosclerosis of coronary artery of [place] heart without angina pectoris Hypertension Hyperlipidemia Bladder cancer DDD (degenerative disc disease), lumbar IBS (irritable bowel syndrome) Carotid artery stenosis without cerebral infarction GERD (gastroesophageal reflux disease) Home Medications ?Medication ?Instructions ?Recorded ?Last Taken ?Type aspirin 81 mg chewable tablet 81 mg PO DAILY@0800 05/24/14 05/25/14 History hydrochlorothiazide 12.5 mg capsule 12.5 mg PO DAILY 05/24/14 Unknown History oxybutynin chloride 5 mg 5 mg PO PRN PRN Bladder Spasm 05/24/14 Unknown History tablet,extended release 24 hr esomeprazole magnesium 20 mg 20 mg PO DAILY 02/03/18 Unknown History capsule,delayed release (Nexium) glucosamine-chondroitin 250 mg-200 1 tab PO DAILY 07/03/20 Unknown History mg tablet (Osteo Bi-Flex) imipramine HCl 25 mg tablet 25 mg PO PRN PRN Abdominal 07/03/20 Unknown History Discomfort acetaminophen 300 mg-codeine 30 mg 0.5 tab PO PRN PRN Pain 03/27/22 Unknown History tablet amlodipine 5 mg tablet 5 mg PO QHS #90 tabs 10/10/22 Unknown Rx simvastatin 20 mg tablet 20 mg PO QPM #90 tabs 10/10/22 Unknown Rx Allergy/AdvReac Type Severity Reaction Status Date / Time morphine Allergy Unknown Verified 08/20/23 14:04 Family History Father CAD (coronary artery disease) CABG Mother Cancer of kidney Cancer of lung Surgical History Hx of neck surgery Status post excision of Rojas's neuroma H/O arthroscopic knee surgery History of partial hysterectomy History of left heart catheterization (05/25/14) Social History Smoking Status: Former smoker ROS ROS ED ROS Narrative Rolling dizziness. Review of Systems ROS Unobtainable: Denies due to encephalopathy Constitutional Constitutional ED: Denies chills or fever(s) Eyes Eyes: Denies blurry vision ENT ENT ED: Denies ear pain Cardiovascular Cardiovascular: Denies chest pain Respiratory/Chest Respiratory/Chest: Denies cough or dyspnea Gastrointestinal Gastrointestinal: Denies abdominal pain Genitourinary Genitourinary ED: Denies dysuria or hematuria Musculoskeletal Musculoskeletal: Denies arthralgias Integumentary Denies abscess or Abrasions Neurologic Neurologic: Denies headache(s) Psychiatric Psychiatric: Denies anxiety or depression Endocrine Endocrinology: Denies cold intolerance Hematologic/Lymphatic Hematologic/Lymphatic: Reports none Allergic/Immunologic Allergic/Immunologic ED: Denies mouth swelling, tongue swelling or urticaria EXAM Physical Exam Narrative Exam Narrative: Very well-appearing 77-year-old female. Vital signs stable afebrile. Pulse ox 99% room air no signs hypoxia. H EENT exam normal. Pupils round react light. No facial droop. Normal speech. No trauma. TMs normal bilaterally. Neck nontender. Lungs clear. Heart regular rhythm no murmur rate about 70. Chest wall and ribs nontender. Abdomen soft nontender. Moving all 4 extremities. 5-5 psychiatric nursing assistant strength. Dorsi plantarflexion intact. Neurologic exam normal. NIH 0. Awake alert. Answer questions following commands. Hallpike maneuver negative. No dizziness. Normal exam. Const Vital Signs: 08/20/23 14:02 08/20/23 16:02 08/20/23 16:54 Temperature 97.2 F L Temperature Source Temporal Pulse Rate 93 87 Pulse Rate [Lying] Pulse Rate [Sitting (for 1 minute prior to obtaining)] Respiratory Rate 18 18 Respiratory Effort Respiratory Pattern Blood Pressure 178/89 H 155/87 H Blood Pressure [Lying] Blood Pressure [Sitting (for 1 minute prior to obtaining)] Blood Pressure [Standing (for 1 minute prior to obtaining)] Blood Pressure Mean 118 109 Blood Pressure Mean [Lying] Blood Pressure Mean [Sitting (for 1 minute prior to obtaining)] Blood Pressure Mean [Standing (for 1 minute prior to obtaining)] Pulse Ox 99 97 Oxygen Delivery Method Room Air Room Air Room Air 08/20/23 16:54 08/20/23 17:04 08/20/23 18:00 Temperature Temperature Source Pulse Rate 70 Pulse Rate [Lying] 73 Pulse Rate [Sitting (for 1 minute prior to obtaining)] 76 Respiratory Rate 12 Respiratory Effort Normal Respiratory Pattern Normal Blood Pressure 135/119 H Blood Pressure [Lying] 132/73 H Blood Pressure [Sitting (for 1 minute prior to obtaining)] 149/90 H Blood Pressure [Standing (for 1 minute prior to obtaining)] 140/89 H Blood Pressure Mean 124 Blood Pressure Mean [Lying] 92 Blood Pressure Mean [Sitting (for 1 minute prior to obtaining)] 109 Blood Pressure Mean [Standing (for 1 minute prior to obtaining)] 106 Pulse Ox 96 Oxygen Delivery Method Room Air Positive well nourished and well developed; Negative for obese, cachectic, contractures or unkempt General Appearance ED: well developed and NAD; Negative for unkempt, cachectic, contractures, cyanotic, diaphoretic or pallor Nutritional Appearance: Negative for cachectic or obese HEENT Reports TM's clear and moist mucous membranes; Denies dry mucous membranes Negative for trauma or tenderness Tympanic Membrane ED: Yes TM's clear Mouth ED: No dry mucous membranes Mouth: No dry mucous membranes Eyes PERRL and EOMs intact bilaterally General Eye ED: Negative for pale conjunctiva or scleral icterus Neck no lymphadenopathy, supple and no JVD General: Negative for tenderness Lymph Lymphatic: Negative for other Chest Wall inspection of chest normal and palpation of chest normal Chest: Negative for other Resp normal respiratory effort and clear to auscultation bilaterally Effort and Inspection: Negative for retractions Auscultation: Negative for rales, rhonchi, wheezes or diminished lung sounds Cardio regular rate, regular rhythm, S1 normal heart sound, S2 normal heart sound and no murmurs Palpation: Negative for palpable S3 or palpable S4 Rate: Negative for bradycardia, tachycardic or other Rhythm: abnormal rhythm GI normal to inspection, nondistended, normoactive bowel sounds, non-tender, non-distended and no masses Inspection: Negative for abdominal distention Auscultation: normoactive bowel sounds Palpation: soft; Negative for tender, guarding or rebound tenderness present Back/Spine no CVA tenderness General Back: Negative for CVA tenderness Cervical Spine: Negative for cervical spine tenderness Thoracic Spine / Upper Back: Negative for thoracic spinal tenderness Lumbar Spine / Lower Back: Negative for lumbar spinal tenderness Extremity normal to inspection General Extremety ED: Negative for edema or tenderness General Extremity: Negative for edema Neuro oriented x3, CN's II-XII intact bilaterally and no sensory deficits noted Neuro Narrative: NIH 0. Fingertip to nose. Within normal limits. No drift. Sensorium / Orientation: alert; Negative for orientation impaired, lethargic or stuporous Motor Exam: strength 5/5 throughout Psych Appearance: Negative for unkempt Attitude: No agitated Mood & Affect: Negative for depressed, anxious or tearful Skin no rashes or lesions noted, no wounds and skin turgor normal General Skin Exam: elasticity normal; Negative for jaundice or pallor Lesions: No lesion noted Rashes: No rashes noted Trauma: Negative for abrasion Wounds: Negative for wounds noted MDM MDM MDM Narrative Medical decision making narrative: 77-year-old female with room spinning dizziness. Currently her symptoms have resolved. She has a completely normal exam and a normal neurologic exam. She had a CTA in April. Will do a CAT scan today and screening labs. She has not had any chest pain or shortness of breath. Repeat exam patient doing well. Exam unchanged. Neurologic exam normal. Nurses had walked her earlier she did well. Again turning her head she has no symptoms. She had prior CTA in April that was unremarkable. She has follow-up coming up with a neurologist at the [facility] in late September. She and her are comfortable with her being discharged home. Her current exam at 8:40 PM is normal. We discussed all of her test results. History & Record Review Discussion w/independent historian: Patient and Family Additional record(s) reviewed:: Prior inpatient record, Prior outpatient record, Prior ED visit and Prior labs Lab Data Attestation: I reviewed the patient's lab results. Lab results narrative: CBC unremarkable. White count 4. H&H 12 and 35. Platelets 313. Electrolytes show potassium 3.3. Gap 7. Normal BUN and creatinine. Glucose 94. Troponin normal at 3. Labs: Laboratory Results - last 24 hr 08/20/23 16:51 WBC 4.8 RBC 3.53 L Hgb 12.2 Hct 35.6 L MCV 100.8 H MCH 34.6 H MCHC 34.3 RDW Std Deviation 50.0 H RDW Coeff of Marilyn 13.7 Plt Count 313 MPV 12.2 H Immature Gran % (Auto) 0.800 Neut % (Auto) 57.9 Lymph % (Auto) 32.6 [place] % (Auto) 5.6 Eos % (Auto) 2.1 Baso % (Auto) 1.0 Absolute Neuts (auto) 2.8 Absolute Lymphs (auto) 1.57 Nucleated RBC % 0 Sodium 140 Potassium 3.3 L Chloride 105 Carbon Dioxide 28.0 Anion Gap 7 BUN 16 Creatinine 0.73 Estim Creat Clear Calc 56.70 Est GFR (MDRD) Af Amer 99 Est GFR (MDRD) Non-Af 82 BUN/Creatinine Ratio 21.8 H Glucose 94 Calcium 9.3 Troponin I High Sens 3 Radiography Chest X-Ray - ED: 1 View, Read by ED Physician, Read by Radiologist, Heart, Lungs, Mediastinum, Bony Structures, No Acute Disease and Chronic Changes Diagnostic Testing: Clinical Impression(s) from Imaging Studies Brain CT 08/20/23 17:27 IMPRESSION: No acute intracranial pathology of the brain. Electronically Signed: Jere Vallecillo DO at 18:44 EDT , Chest X-Ray 08/20/23 17:29 IMPRESSION: Normal x-ray examination of the chest. Electronically Signed: Franck Evans MD at 17:41 EDT , Chest x-ray, portable, single view interpreted both by myself and the radiologist shows no acute abnormality. Normal cardiac silhouette. Normal lung [place]. Rhythm Strip Rhythm Strip: Sinus Rhythm Rate: 66 Ectopy: None and PAC(s) EKG Initial EKG: Attestation: I personally reviewed and interpreted this EKG as follows: Interpretation: Sinus Rhythm and No Acute Injury Pattern Comments: Normal sinus rhythm rate is 66 no acute signs of MA or ischemia. Discharge Plan Triage Chief Complaint: Syncope ED Provider: Ahmet Kirby Dx/Rx/DC Orders Clinical Impression: Dizziness, History of hypertension Instructions: ED Dizziness, Uncertain Cause Prescriptions: No Action esomeprazole magnesium [Nexium] 20 mg capsule,delayed release(DR/EC) 20 mg PO DAILY imipramine HCl 25 mg tablet 25 mg PO PRN PRN (Reason: Abdominal Discomfort) glucosamine-chondroitin [Osteo Bi-Flex] 250-200 mg tablet 1 tab PO DAILY acetaminophen-codeine 300-30 mg tablet 0.5 tab PO PRN PRN (Reason: Pain) Patient Comments: simvastatin 20 mg tablet 20 mg PO QPM Qty: 90 3RF amlodipine 5 mg tablet 5 mg PO QHS Qty: 90 4RF hydrochlorothiazide 12.5 MG capsule 12.5 mg PO DAILY Patient Comments: BLOOD PRESSURE oxybutynin chloride 5 MG tablet 5 mg PO PRN PRN (Reason: Bladder Spasm) Patient Comments: OVERACTIVE BLADDER aspirin 81 MG tablet,chewable 81 mg PO DAILY@0800 Patient Comments: HEART HEALTH Primary Care Provider: Carrie Vincent Referrals: Carrie Vincent MD [Primary Care Provider] - As soon as possible Activity Restrictions/Additional Instructions: Your blood work, EKG and CAT scan today were unremarkable. Follow-up with Dr. Mendoza. Follow-up with your scheduled appointment with the neurologist at [facility]. Print Language: [place] Disposition Disposition: Home, Self Care
--- NOTE | 2023-08-20 17:29 | RAD_ITS ---
STUDY: X-RAY CHEST REASON FOR EXAM: Female, 77 years old. chest pain TECHNIQUE: Single AP portable view of the chest. COMPARISON: 02/06/2022 FINDINGS: The lungs are clear and expanded. There is no demonstrated pleural abnormality. Normal size heart. Normal mediastinum and allen. Normal visualized pulmonary arteries. Normal visualized aortic arch and descending thoracic aorta. Normal visualized thoracic spine. Normal visualized ribs, clavicles, and shoulders. There is no demonstrated abnormality of the visualized soft tissue structures of the upper abdomen. RAD/Chest 1 View (Portable) IMPRESSION: Normal x-ray examination of the chest. Electronically Signed: Franck Evans MD at 17:41 EDT ,
[2023-08-20 17:30] LABS: Absolute Lymphocyte Count 1.57 X10^3/uL (0.83-4.51); Absolute Neutrophil Count 2.8 X10^3/uL (2.0-7.7); Basophil# 0.05 X10^3/uL; Eosinophils% 2.1 % (0-5); Hematocrit 35.6 % (37-47); Hemoglobin 12.2 g/dL (12.0-15.0); Lymphocyte # 1.57 X10^3/ul (0.83-4.51); Lymphocyte % 32.6 % (19-41); Mean Corp Hgb Conc 34.3 g/dL (32-36); Mean Corpuscular Hgb 34.6 pg (27.0-32.0); Mean Corpuscular Volume 100.8 fL (81-99); Mean Platelet Vol. 12.2 fl (6.2-12.0); Monocyte# 0.27 X10^3/uL; Monocyte% 5.6 % (0-10); NRBC Flagged by Analyzer 0 % (0-5); Neutrophil # 2.79 X10^3/uL (2.7-7.7); Neutrophil % 57.9 % (47-70); Platelet Count 313 K/mm3 (150-450); RBC Distribution Width CV 13.7 % (11.6-14.6); Red Blood Count 3.53 M/mm3 (4.2-5.4); White Blood Count 4.8 K/mm3 (4.4-11.0)
[2023-08-20 17:55] LABS: Anion Gap 7 (5-15); BUN 16 mg/dL (7-18); BUN/Creat Ratio 21.8 RATIO (10-20); Calcium,Total 9.3 mg/dL (8.5-10.1); Chloride 105 mmol/L (98-107); Creatinine, Serum 0.73 mg/dL (0.55-1.02); EST Glomerular Filtration Rate 82 mL/min (>60); Est Glom Filt Rate - Afr Amer 99 mL/min (>60); Glucose 94 mg/dL (74-106); Potassium 3.3 mmol/L (3.5-5.1); Sodium Level 140 mmol/L (136-145); Troponin-I HS 3 pg/mL (3.0-54.0)
[2023-08-20 18:00] VITALS: BP 135/119; PULSE 70; RESP 12; O2SAT 96
[2023-08-20 20:00] VITALS: BP 150/71; PULSE 72; RESP 18; O2SAT 96
[2023-08-20 20:55] VITALS: BP 150/91; PULSE 60; RESP 16; TEMP 36.9; O2SAT 97
== END 2023-08-20 20:45 | disposition home or self-care (01) ==
PROVIDERS: Emergency Provider Emergency Medicine; PCP Internal Medicine; Visit Provider Emergency Medicine
DX: R42 Dizziness and giddiness (principal); I10 Essential (primary) hypertension; Z87.891 Personal history of nicotine dependence; E78.00 Pure hypercholesterolemia, unspecified; I25.10 Atherosclerotic heart disease of native coronary artery without angina pectoris; K21.9 Gastro-esophageal reflux disease without esophagitis
CPT/HCPCS: 70450; 71045; 80048; 84484; 85025; 93005; 99285; A4216

== ENCOUNTER → 2024-11-16 | Outpatient (CLI) | payer MEDICARE, OTHER, SELFPAY ==
--- OUTSIDE RECORDS SUMMARY | 2024-11-15 09:55 | XMS RPT_ITS ---
Author Name Auto Generated Organization OHIP Care Team Providers Care Sales Representative Door To Door Name Role Phone PERCY VINCENT Attending Unavailable TALAMPTOSIN PERCY Leana Primary Care Unavailable TALAMPTOSIN PERCY D Referring Unavailable TALAMPTOSIN, PERCY Leana Primary Care Unavailable SAMANTHA PEREZ Referring Unavailable TALAMPTOSIN, PERCY Leana Primary Care Unavailable TALAMPAS, PERCY D Attending Unavailable TALAMPTOSIN, PERCY D Primary Care Unavailable TALAMPAS, PERCY D Referring Unavailable TALAMPAS, PERCY D Primary Care Unavailable KENZIE GARSIA Attending Unavailable SELF Referring Unavailable TALAMPAS, PERCY D Primary Care Unavailable PROBLEMS DATE TYPE CONDITION / CODE ATTENDING STATUS [facility] 11/15/2024 Active Medicare annual wellness visit, subsequent / Z00.00(ICD-10) PERCY VINCENT Active [facility] 11/15/2024 Active B12 deficiency / E53.8(ICD-10) MELISA PERCY Leana Active [facility] 11/15/2024 Active Foot cramps / R25.2(ICD-10) KENNETH VINCENTA Leana Active [facility] 11/15/2024 Active Constipation, unspecified constipation type / K59.00(ICD-10) MELISA PERCY Leana Active [facility] 11/15/2024 Active Encounter for sc reening examination for other mental health and behavioral disorders / Z13.39(ICD-10) PERCY VINCENT Active [facility] 11/15/2024 Active Screening for de pression / Z13.31(ICD-10) MELISA PERCY Leana Active [facility] 11/15/2024 Active Encounter for immunization / Z23(ICD-10) KENNETH VINCENTA Leana Active [facility] 11/15/2024 Active Macrocytosis / D75.89(ICD-10) PERCY VINCENT Leana Active [facility] 11/15/2024 Active Chronic pain of both shoulders / M25.511(ICD-10) ANTHONYJAZIELTOSINPERCY Leana Active [facility] 11/15/2024 Active Chronic pain of both shoulders / G89.29(ICD-10) MELISA PERCY D Active [facility] 11/15/2024 Active Chronic pain of both shoulders / M25.512(ICD-10) ANTHONYJAZIELPERCY LEAHY Active [facility] 11/15/2024 Active Urinary frequenc y / R35.0(ICD-10) PERCY VINCENT Active [facility] 11/15/2024 Active Essential (prima ry) hypertension / I10(ICD-10) PERCY VINCENT Active [facility] 11/08/2024 Active Macrocytic anemi a / D53.9(ICD-10) NA Active [facility] 09/01/2015 Active Primary hyperten aida / I10(ICD-10) NA Active [facility] 09/01/2015 Active Mixed hyperlipid emia / E78.2(ICD-10) NA Active [facility] 05/03/2024 Active Osteopenia, unsp ecified location / M85.80(ICD-10) NA Active [facility] 05/03/2024 Active Elevated glucose / R73.09(ICD-10) NA Active [facility] 05/03/2024 Active Encounter for lo ng-term current use of medication / Z79.899(ICD-10) NA Active [facility] 12/22/2023 Active Encounter for sc reening mammogram for breast cancer / Z12.31(ICD-10) NA Active [facility] PROCEDURES No Procedure Records Found RESULTS LIPID 1995 PNL SERPL Collected: 025 8:12 AM Status: F Source: [facility] Order Comment: Specimen Type : BLOOD SPECIMEN Ordering Facility: [facility] Address: [address] [place] [address] TYPE CODE TESTS RESULT OUT OF RANGE REFERENCE UNITS LAB 2093-3(LOINC) Cholest SerPl-mCnc 157 <200 mg/dL Result Comment: <200 mg/dL, Desirable 200-239 mg/dL, Borderline high >239 mg/dL, High LAB 2571-8(LOINC) Trigl SerPl-mCnc 125 <150 mg/dL Result Comment: <150 mg/dL, Normal 150-199 mg/dL, Borderline high 200-499 mg/dL, High >499 mg/dL, Very high LAB 2085-9(LOINC) HDLc SerPl-mCnc 55 >39 mg/dL Result Comment: 40-59 mg/dL, Acceptable >59 mg/dL, High: Negative risk factor for coronary heart disease <40 mg/dL, Low: Positive risk factor for coronary heart disease LAB 2089-1(LOINC) LDLc SerPl-mCnc 80 <100 mg/dL Result Comment: <100 mg/dL, Optimal 100-129 mg/dL, Near optimal/above optimal 130-159 mg/dL, Borderline high 160-189 mg/dL, High >189 mg/dL, Very high Secondary prevention optimal LDL Cholesterol levels are recommended to be <70 mg/dL LDL cholesterol is calculated using the Gilman-NIH equation. LAB 50787-6(LOINC) NonHDLc SerPl-mCnc 102 <130 mg/dL Result Comment: <130 mg/dL, Optimal 130-159 mg/dL, Near optimal/above optimal 160-189 mg/dL, Borderline high 190-219 mg/dL, High >219 mg/dL, Very high Secondary prevention optimal non HDL Cholesterol levels are recommended to be <100 mg/dL LAB 61421-3(LOINC) VLDLc SerPl Calc-mCnc 19 <30 mg/dL LAB 9830-1(LOINC) Cholest/HDLc SerPl 2.85 <5.10 LAB 06573-0(LOINC) LDLc/HDLc SerPl 1.45 <2.54 Result Comment: Reference: 1. National Cholesterol Education Program ATP III Guideline At-A-Glance Quick Desk Reference: National Heart, Lung, and Blood [place]. National Institutes of Health. 2001: NIH Publication No. 01-3305. 2. An International Atherosclerosis Society position paper: global recommendations for the management of dyslipidemia: executive summary, Atherosclerosis. 2014: 232(2):410-413. LAB FT FASTING TIME 12 hrs Performed By: #### 2132-9, 2 284-8 #### [facility] CLIA [id number] [address] [place] [address] [place] #### 18876-7 #### [facility] CLIA [id number] [address] [place] [address] [place] [facility] CLIA [id number] [address] [place] [address] [place] VIT B12 SERPL-MCNC Collected: 11/08/2024 8:12 AM Sta tus: F Source: [facility] Order Comment: Specimen Type : BLOOD SPECIMEN Ordering Facility: [facility] Address: [address] [place] [address] TYPE CODE TESTS RESULT OUT OF RANGE REFERENCE UNITS LAB 2132-9(LOINC) Vit B12 SerPl-mCnc 158 Low 232-1245 pg/mL Performed By: #### 2132-9, 2 284-8 #### [facility] CLIA [id number] [address] [place] [address] [place] #### 24768-1 #### [facility] CLIA [id number] [address] [place] [address] [place] [facility] CLIA [id number] [address] [place] [address] [place] FOLATE SERPL-MCNC Collected: 8:12 AM Status: F Source: [facility] Order Comment: Specimen Type : BLOOD SPECIMEN Ordering Facility: [facility] Address: [address] [place] [address] TYPE CODE TESTS RESULT OUT OF RANGE REFERENCE UNITS LAB 2284-8(LOINC) Folate SerPl-mCnc >20.0 >4.7 ng/mL Result Comment: A result of > 20 ng/mL is not necessarily indicative of a pathologic or treatable condition: it reflects a limitation of the test methodology. Assay reference range: 4.8 to 24.2 ng/mL. Suitable for detection of folate deficiency. Reference: Folate III (Folate III) [package insert V 1.0 [place]ican]. [facility], [place], [place]: December 2014. Performed By: #### 2132-9, 2 284-8 #### [facility] CLIA [id number] [address] [place] [address] #### 18851-0 #### [facility] CLIA [id number] [address] [place] [address] CLIA [id number] [address] [place] [address] OF [facility] CBC PNL BLD AUTO Collected: 5 8:12 AM Status: F Source: [facility] Order Comment: Specimen Type : BLOOD SPECIMEN Ordering Facility: [facility] Address: [address] [place] [address] TYPE CODE TESTS RESULT OUT OF RANGE REFERENCE UNITS LAB 6690-2(LOINC) WBC # Bld Auto 5.26 3.70-11.00 k/uL LAB 789-8(LOINC) RBC # Bld Auto 3.52 Low 3.90-5.20 m/uL LAB 718-7(LOINC) Hgb Bld-mCnc 12.6 11.5-15.5 g/dL LAB 4544-3(LOINC) Hct VFr Bld Auto 36.3 36.0-46.0 % LAB 787-2(LOINC) MCV RBC Auto 103.1 High 80.0-100.0 fL LAB 785-6(LOINC) MCH RBC Qn Auto 35.8 High 26.0-34.0 pg LAB 786-4(LOINC) MCHC RBC Auto-mCnc 34.7 30.5-36.0 g/dL LAB 79090-0(LOINC) RDW RBC-Rto 13.7 11.5-15.0 % LAB 777-3(LOINC) Platelet # Bld Auto 361 150-400 k/uL LAB 31114-0(LOINC) PMV Bld Auto 12.1 9.0-12.7 fL LAB 771-6([facility]) nRBC # Bld Auto <0.01 <0.01 k/uL Performed By: #### 03149-5 # ### [facility] CLIA [id number] [address] [place] [address] [place] 25([place])D3 SERPL-MCNC Collected: 11/08/2024 8:[address] atus: F Source: [facility] Order Comment: Specimen Type : BLOOD SPECIMEN Ordering Facility: [facility] Address: [address] [place] [address] TYPE CODE TESTS RESULT OUT OF RANGE REFERENCE UNITS LAB 1988-04([facility]) 25(OH)D3 SerPl-mCnc 40.2 31.0-80.0 ng/mL Performed By: #### 1988-04 ## ## [facility] CLIA [id number] [address] [place] [address] [place] COMP METAB 2000 PNL SERPL Collected: 8:12 AM Status: F Source: [facility] Order Comment: Specimen Type : BLOOD SPECIMEN Ordering Facility: [facility] Address: [address] [place] [address] TYPE CODE TESTS RESULT OUT OF RANGE REFERENCE UNITS LAB 2885-2([facility]) Prot SerPl-mCnc 7.5 6.3-8.0 g/dL LAB 1751-7(LOINC) Albumin SerPl-mCnc 4.8 3.9-4.9 g/dL LAB 07455-9(LOINC) Calcium SerPl-mCnc 9.8 8.5-10.2 mg/dL LAB 1975-2(LOINC) Bilirub SerPl-mCnc 0.9 0.2-1.3 mg/dL LAB 6768-6(LOINC) ALP SerPl-cCnc 101 34-123 U/L LAB 1920-8(LOINC) AST SerPl-cCnc 10 Low 13-35 U/L LAB 1742-6(LOINC) ALT SerPl-cCnc <5 Low 7-38 U/L LAB 2345-7(LOINC) Glucose SerPl-mCnc 102 High 74-99 mg/dL Result Comment: The [place] Diabetes Association (ADA) provides guidance for cutoff values for fasting glucose and random glucose. The ADA defines fasting as no caloric intake for at least 8 hours. Fasting plasma glucose results between 100 to 125 mg/dL indicate increased risk for diabetes (prediabetes). Fasting plasma glucose results greater than or equal to 126 mg/dL meet the criteria for diagnosis of diabetes. In the absence of unequivocal hyperglycemia, results should be confirmed by repeat testing. In a patient with classic symptoms of hyperglycemia or hyperglycemic crisis, random plasma glucose results greater than or equal to 200 mg/dL meet the criteria for diagnosis of diabetes. Reference: Standards of Medical Care in Diabetes 2016, [place] Diabetes Association. Diabetes Care. 2016.39(Suppl 1). LAB 3094-0(LOINC) BUN SerPl-mCnc 14 7-21 mg/dL LAB 2160-0(LOINC) Creat SerPl-mCnc 0.82 0.58-0.96 mg/dL LAB 2951-2(LOINC) Sodium SerPl-sCnc 140 136-144 mmol/L LAB 2823-3(LOINC) Potassium SerPl-sCnc 3.9 3.7-5.1 mmol/L LAB 2075-0(LOINC) Chloride SerPl-sCnc 100 98-107 mmol/L LAB 2028-9(LOINC) CO2 SerPl-sCnc 24 22-30 mmol/L LAB 48897-7(LOINC) Anion Gap SerPl-sCnc 16 High 8-15 mmol/L LAB 48250-5(LOINC) eGFRcr SerPlBld CKD-EPI 2020 74 >=60 mL/min/1. 73m??? Result Comment: Estimated Gl omerular Filtration Rate (eGFR) is calculated using the 2020 CKD-EPI creatinine equation. This equation utilizes serum creatinine, sex, and age as parameters. The creatinine assay has traceable calibration to isotope dilution-mass spectrometry. Refer to KDIGO guidelines for clinical interpretation. In patients with unstable renal function, e.g. those with acute kidney injury, the eGFR may not accurately reflect actual GFR. Performed By: #### 84347-2 # ### [facility] CLIA [id number] [address] [place] [address] [place] ECG COMPLETE Observed: 05/17/2024 1:23 PM Status: F Source: [facility] Ventricular Rate : 69 BPM Atrial Rate : 69 BPM P-R Interval : 164 ms QRS Duration : 78 ms Q-T Interval : 388 ms QTC Calculation(Bazett) : 415 ms Calculated P Hershey : 18 degrees Calculated R Hershey : -15 degrees Calculated T Hershey : 18 degrees NORMAL SINUS RHYTHM WITH SINUS ARRHYTHMIA NORMAL ECG Confirmed by MD PAZ QARAB ([id number]) on 05/18/2024 11:38:34 AM NAME : MARYURI ARREDONDO PID : [id number] : 1945 Gender : Female Race : ORD : [id number] Procedure Date : May 17 2024 13:23:01 Edit Date : May 18 2024 11:38:36 Diagnosis: NORMAL SINUS RHYTHM WITH SINUS ARRHYTHMIA NORMAL ECG Confirmed by MD PAZ QARAB ([id number]) on 05/18/2024 11:38:34 AM Test Reason : Z01.818 Pre-op evaluation Location : 185 : [facility] Overread By : MD PAZ QARAB Edited By : MD PAZ QARAB Referred By : SELF, Acquired by : Lilia Rivera LPN, PROGRESS Observed: 05/17/2024 1:00 PM Status: COMPLETED Source: [facility] HNO ID: [id number] Author: KENZIE GARSIA APRN.BUMPER OPERATOR Service: ? Author Type: Nurse Practitioner Type: Progress Notes Filed: 05/17/2024 13:27 Note Text: SUBJECTIVE Maryuri Arredondo is a 78 year old female here today for a pre-op visit. Chief Complaint Patient presents with: Pre-Op Exam: vitreous opacities removal right eye Dr. Alvares HPI Maryuri Arredondo is an 78 year old female presents to the office for pre-op examination. She is an established patient of Percy Vincent MD. Is scheduled to have vitreous opacities removed on the right eye done on 06/01/[address] Alvares at [facility]. History of having anesthesia: Yes. Any reaction from anesthesia in the past: No. Personal or family history of heart disease: Yes, history of CAD but no prior stenting. Chronic diseases controlled: Yes. Last visit for chronic diseases: 05/14/2024. Currently taking a blood thinner: ASA, will stop 1 week before surgery. Patient denies chest pain, SOB, dizziness, palpitations, one sided weakness, dropping of face or mouth, fever, or recent sickness. No history of CVA or CA. Labs reviewed, EKG to be obtained. Recent labs noted macrocytic anemia. Advised to start a b12 supplement. Other history of HTN, OA of both knees, GERD, HLD, IFG with stable hgba1c. Her medications were reviewed today and her list is now up to date. Medications Current Outpatient Medications Medication Sig acetaminophen-codeine (TYLENOL-COD #3) 300-30 mg per tablet Take 0.5-1 tablets by mouth every 4 hours as needed for pain (For back pain) for up to 7 days. hydroCHLOROthiazide 12.5 mg capsule Take 1 capsule by mouth once daily. esomeprazole (NEXIUM) 20 mg capsule Take 1 capsule by mouth once daily. As directed vit C/E/Zn/coppr/lutein/zeaxan (PRESERVISION AREDS-2 ORAL) Take 1 tablet by mouth once daily. COLLAGEN MISC simvastatin (ZOCOR) 20 mg tablet Take 1 tablet by mouth once daily. (from cardiology) glucosamine/chondr arora A sod (OSTEO BI-FLEX ORAL) Take by mouth. amLODIPine (NORVASC) 5 mg tablet Take 5 mg by mouth once daily. aspirin, enteric coated (ASPIRIN, ENTERIC COATED) 81 mg EC tablet Take 81 mg by mouth once daily. oxybutynin (DITROPAN) 5 mg tablet Take 5 mg by mouth as needed. No current facility-administered medications for this visit. ALLERGIES Allergen Reactions Morphine GI Upset ACTIVE PROBLEM LIST History of Bladder Cancer - 12/06/2022 Cad (Coronary Artery Disease) Comment: Dr. Kelley; sounds like has blockage with collaterals Hyperlipidemia Htn (Hypertension) Gerd (Gastroesophageal Reflux Disease) Postmenopausal Atrophic Vaginitis - 10/06/2006 Social History Tobacco Use Smoking status: Former Current packs/day: 1.00 Average packs/day: 1 pack/day for 35.0 years (35.0 ttl pk-yrs) Types: Cigarettes Smokeless tobacco: Never Vaping Use Vaping status: Never Used Substance Use Topics Alcohol use: Yes Comment: 3-4 beers on the weekends Drug use: Never Review of Systems Constitutional: Negative. Eyes: Negative for visual disturbance. Respiratory: Negative for chest tightness and shortness of breath. Cardiovascular: Negative for chest pain, palpitations and leg swelling. Neurological: Negative for seizures, syncope, facial asymmetry and speech difficulty. OBJECTIVE BP 122/82 Pulse 96 Ht 5' 2.205 (1.58m) Wt 152 lb 1.9 oz (69.0kg) SpO2 99% BMI 27.64 kg/(m2). Physical Exam Vitals and nursing note reviewed. Constitutional: General: She is awake. She is not in acute distress. Appearance: She is well-developed and well-groomed. She is not ill-appearing, toxic-appearing or diaphoretic. HENT: Head: Normocephalic. Eyes: General: Vision grossly intact. Conjunctiva/sclera: Conjunctivae normal. Pupils: Pupils are equal, round, and reactive to light. Neck: Vascular: No carotid bruit or JVD. Cardiovascular: Rate and Rhythm: Normal rate and regular rhythm. Heart sounds: Normal heart sounds. No murmur heard. Pulmonary: Effort: Pulmonary effort is normal. No accessory muscle usage, prolonged expiration or respiratory distress. Breath sounds: Normal breath sounds. Musculoskeletal: General: Normal range of motion. Cervical back: Normal range of motion and neck supple. Skin: General: Skin is warm and dry. Capillary Refill: Capillary refill takes less than 2 seconds. Neurological: General: No focal deficit present. Mental Status: She is alert and oriented to person, place, and time. Mental status is at baseline. Cranial Nerves: No cranial nerve deficit. Sensory: No sensory deficit. Psychiatric: Attention and Perception: Attention and perception normal. Mood and Affect: Mood normal. Speech: Speech normal. Behavior: Behavior normal. Behavior is cooperative. Thought Content: Thought content normal. Judgment: Judgment normal. ASSESSMENT/PLAN: 1. Vitreous opacities of right eye - ICD9: 379.24, ICD10: H43.391 (primary diagnosis) Scheduled to have vitreous opacities removed on the right eye done on 06/01/[address] Alvares at [facility] 2. Pre-op evaluation - ICD9: V72.84, ICD10: Z01.818 Based on physical exam done at today's visit, negative review of systems, stable EKG showing sinus rhythm with sinus arrhythmia but no other issues noted and no signs of ischemia the patient is cleared for surgery from a primary care standpoint. Proceed with planned procedure at the discretion of the performing provider. - ADVANCE CARE PLAN DISCUSSION - ECG COMPLETE 3. Primary hypertension - ICD9: 401.9, ICD10: I10 - Controlled - Continue current medications - Recommend home blood pressure monitoring, to bring results to next visit - Encouraged sodium restriction, DASH or Mediterranean diet - Recommend regular aerobic exercise 4. Primary osteoarthritis of both knees - ICD9: 715.16, ICD10: M17.0 Stable. 5. Gastroesophageal reflux disease without esophagitis - ICD9: 530.81, ICD10: K21.9 - Stable, continue current medication. 6. Coronary artery disease involving [place] coronary artery of [place] heart without angina pectoris - ICD9: 414.01, ICD10: I25.10 Stable, following with cardiology, on ASA and statin. EKG done in office today. 7. Mixed hyperlipidemia - ICD9: 272.2, ICD10: E78.2 - Controlled - Continue current medications - Counseled on healthy diet and regular exercise 8. Macrocytic anemia - ICD9: 281.9, ICD10: D53.9 Started b12 supplementation. Overall stable, up coming surgery is low risk for bleeding risk. 9. IFG (impaired fasting glucose) - ICD9: 790.21, ICD10: R73.01 Stable hgba1c. Portions of this note have been entered by ancillary staff. I have reviewed and when necessary edited, so that they are an adequate record of my encounter with this patient Please note that parts of this document were created using voice recognition software and therefore may contain grammatical errors. Patient verbalizes understanding of instructions from today's visit and in agreement with treatment plan. Questions answered. Agrees to call the office if questions, concerns of issues with acute symptoms not improving or if they worsen. See diagnoses and orders for additional plan(s). Allergies and medications were reviewed, list was updated, and refills given if needed. Past medical, surgical, social, and family history reviewed and updated as appropriate. Encouraged proper diet AND exercise as well as compliance with taking medications. Age-appropriate health preventative measures were discussed. Return if symptoms worsen or fail to improve, for Keep next scheduled appointment.. Kenzie Garsia APRN-[facility] Observed: 05/17/2024 1:00 PM Status: COMPLETED Source: [facility] Office Visit (INTMWS) MARYURI ARREDONDO ([id number]) 1945 F Date Time Provider Department 05/17/24 1:00 PM KENZIE GARSIA INTMWS During your visit today, we recorded the following information about you: Pulse Blood pressure Weight Height 96/minute 122/82 69 kg 1.58 m Kenzie Garsia APRN.BUMPER OPERATOR 05/17/2024 1:27 PM Signed SUBJECTIVE Maryuri Arredondo is a 78 year old female here today for a pre-op visit. Chief Complaint Patient presents with: Pre-Op Exam: vitreous opacities removal right eye Dr. Alvares HPI Maryuri Arredondo is an 78 year old female presents to the office for pre-op examination. She is an established patient of Percy Vincent MD. Is scheduled to have vitreous opacities removed on the right eye done on 06/01/[address] Alvares at [facility]. History of having anesthesia: Yes. Any reaction from anesthesia in the past: No. Personal or family history of heart disease: Yes, history of CAD but no prior stenting. Chronic diseases controlled: Yes. Last visit for chronic diseases: 05/14/2024. Currently taking a blood thinner: ASA, will stop 1 week before surgery. Patient denies chest pain, SOB, dizziness, palpitations, one sided weakness, dropping of face or mouth, fever, or recent sickness. No history of CVA or CA. Labs reviewed, EKG to be obtained. Recent labs noted macrocytic anemia. Advised to start a b12 supplement. Other history of HTN, OA of both knees, GERD, HLD, IFG with stable hgba1c. Her medications were reviewed today and her list is now up to date. Medications Current Outpatient Medications Medication Sig acetaminophen-codeine (TYLENOL-COD #3) 300-30 mg per tablet Take 0.5-1 tablets by mouth every 4 hours as needed for pain (For back pain) for up to 7 days. hydroCHLOROthiazide 12.5 mg capsule Take 1 capsule by mouth once daily. esomeprazole (NEXIUM) 20 mg capsule Take 1 capsule by mouth once daily. As directed vit C/E/Zn/coppr/lutein/zeaxan (PRESERVISION AREDS-2 ORAL) Take 1 tablet by mouth once daily. COLLAGEN MISC simvastatin (ZOCOR) 20 mg tablet Take 1 tablet by mouth once daily. (from cardiology) glucosamine/chondr arora A sod (OSTEO BI-FLEX ORAL) Take by mouth. amLODIPine (NORVASC) 5 mg tablet Take 5 mg by mouth once daily. aspirin, enteric coated (ASPIRIN, ENTERIC COATED) 81 mg EC tablet Take 81 mg by mouth once daily. oxybutynin (DITROPAN) 5 mg tablet Take 5 mg by mouth as needed. No current facility-administered medications for this visit. ALLERGIES Allergen Reactions Morphine GI Upset ACTIVE PROBLEM LIST History of Bladder Cancer - 12/06/2022 Cad (Coronary Artery Disease) Comment: Dr. Kelley; sounds like has blockage with collaterals Hyperlipidemia Htn (Hypertension) Gerd (Gastroesophageal Reflux Disease) Postmenopausal Atrophic Vaginitis - 10/06/2006 Social History Tobacco Use Smoking status: Former Current packs/day: 1.00 Average packs/day: 1 pack/day for 35.0 years (35.0 ttl pk-yrs) Types: Cigarettes Smokeless tobacco: Never Vaping Use Vaping status: Never Used Substance Use Topics Alcohol use: Yes Comment: 3-4 beers on the weekends Drug use: Never Review of Systems Constitutional: Negative. Eyes: Negative for visual disturbance. Respiratory: Negative for chest tightness and shortness of breath. Cardiovascular: Negative for chest pain, palpitations and leg swelling. Neurological: Negative for seizures, syncope, facial asymmetry and speech difficulty. OBJECTIVE BP 122/82 Pulse 96 Ht 5' 2.205 (1.58m) Wt 152 lb 1.9 oz (69.0kg) SpO2 99% BMI 27.64 kg/(m2). Physical Exam Vitals and nursing note reviewed. Constitutional: General: She is awake. She is not in acute distress. Appearance: She is well-developed and well-groomed. She is not ill-appearing, toxic-appearing or diaphoretic. HENT: Head: Normocephalic. Eyes: General: Vision grossly intact. Conjunctiva/sclera: Conjunctivae normal. Pupils: Pupils are equal, round, and reactive to light. Neck: Vascular: No carotid bruit or JVD. Cardiovascular: Rate and Rhythm: Normal rate and regular rhythm. Heart sounds: Normal heart sounds. No murmur heard. Pulmonary: Effort: Pulmonary effort is normal. No accessory muscle usage, prolonged expiration or respiratory distress. Breath sounds: Normal breath sounds. Musculoskeletal: General: Normal range of motion. Cervical back: Normal range of motion and neck supple. Skin: General: Skin is warm and dry. Capillary Refill: Capillary refill takes less than 2 seconds. Neurological: General: No focal deficit present. Mental Status: She is alert and oriented to person, place, and time. Mental status is at baseline. Cranial Nerves: No cranial nerve deficit. Sensory: No sensory deficit. Psychiatric: Attention and Perception: Attention and perception normal. Mood and Affect: Mood normal. Speech: Speech normal. Behavior: Behavior normal. Behavior is cooperative. Thought Content: Thought content normal. Judgment: Judgment normal. ASSESSMENT/PLAN: 1. Vitreous opacities of right eye - ICD9: 379.24, ICD10: H43.391 (primary diagnosis) Scheduled to have vitreous opacities removed on the right eye done on 06/01/[address] Alvares at [facility] 2. Pre-op evaluation - ICD9: V72.84, ICD10: Z01.818 Based on physical exam done at today's visit, negative review of systems, stable EKG showing sinus rhythm with sinus arrhythmia but no other issues noted and no signs of ischemia the patient is cleared for surgery from a primary care standpoint. Proceed with planned procedure at the discretion of the performing provider. - ADVANCE CARE PLAN DISCUSSION - ECG COMPLETE 3. Primary hypertension - ICD9: 401.9, ICD10: I10 - Controlled - Continue current medications - Recommend home blood pressure monitoring, to bring results to next visit - Encouraged sodium restriction, DASH or Mediterranean diet - Recommend regular aerobic exercise 4. Primary osteoarthritis of both knees - ICD9: 715.16, ICD10: M17.0 Stable. 5. Gastroesophageal reflux disease without esophagitis - ICD9: 530.81, ICD10: K21.9 - Stable, continue current medication. 6. Coronary artery disease involving [place] coronary artery of [place] heart without angina pectoris - ICD9: 414.01, ICD10: I25.10 Stable, following with cardiology, on ASA and statin. EKG done in office today. 7. Mixed hyperlipidemia - ICD9: 272.2, ICD10: E78.2 - Controlled - Continue current medications - Counseled on healthy diet and regular exercise 8. Macrocytic anemia - ICD9: 281.9, ICD10: D53.9 Started b12 supplementation. Overall stable, up coming surgery is low risk for bleeding risk. 9. IFG (impaired fasting glucose) - ICD9: 790.21, ICD10: R73.01 Stable hgba1c. Portions of this note have been entered by ancillary staff. I have reviewed and when necessary edited, so that they are an adequate record of my encounter with this patient Please note that parts of this document were created using voice recognition software and therefore may contain grammatical errors. Patient verbalizes understanding of instructions from today's visit and in agreement with treatment plan. Questions answered. Agrees to call the office if questions, concerns of issues with acute symptoms not improving or if they worsen. See diagnoses and orders for additional plan(s). Allergies and medications were reviewed, list was updated, and refills given if needed. Past medical, surgical, social, and family history reviewed and updated as appropriate. Encouraged proper diet AND exercise as well as compliance with taking medications. Age-appropriate health preventative measures were discussed. Return if symptoms worsen or fail to improve, for Keep next scheduled appointment.. Kenzie Garsia APRN-BUMPER OPERATOR Referring Provider: SELF [[id number]] Allergies As of Date: 05/17/2024 Noted Allergy Reaction MORPHINE 10/06/2006 8 - GI Upset Date Reviewed: 05/17/2024 Reviewed by: Kenzie Garsia APRN.BUMPER OPERATOR - Fully Assessed Reason for Visit: Pre-Op Exam [87] Cmt: vitreous opacities removal right eye Dr. Alvares Primary Visit Diagnosis:Vitreous opacities of right eye [H43.391] Other Visit Diagnoses:Pre-op evaluation [Z01.818] Primary hypertension [I10] Primary osteoarthritis of both knees [M17.0] Gastroesophageal reflux disease without esophagitis [K21.9] Coronary artery disease involving [place] coronary artery of [place] heart without angina pectoris [I25.10] Mixed hyperlipidemia [E78.2] Macrocytic anemia [D53.9] IFG (impaired fasting glucose) [R73.01] Order(s):ADVANCE CARE PLAN DISCUSSION [3182065] Order #: [id number]: 1 ECG COMPLETE [ECG01] Order #: [id number]. #:[id number]--[id number] Prescriptions as of 05/17/2024 - acetaminophen-codeine (TYLENOL-COD #3) 300-30 mg per tablet Take 0.5-1 tablets by mouth every 4 hours as needed for pain (For back pain) for up to 7 days. - hydroCHLOROthiazide 12.5 mg capsule Take 1 capsule by mouth once daily. - esomeprazole (NEXIUM) 20 mg capsule Take 1 capsule by mouth once daily. As directed - vit C/E/Zn/coppr/lutein/zeaxan (PRESERVISION AREDS-2 ORAL) Take 1 tablet by mouth once daily. - COLLAGEN MISC - simvastatin (ZOCOR) 20 mg tablet Take 1 tablet by mouth once daily. (from cardiology) - glucosamine/chondr arora A sod (OSTEO BI-FLEX ORAL) Take by mouth. - amLODIPine (NORVASC) 5 mg tablet Take 5 mg by mouth once daily. - aspirin, enteric coated (ASPIRIN, ENTERIC COATED) 81 mg EC tablet Take 81 mg by mouth once daily. - oxybutynin (DITROPAN) 5 mg tablet Take 5 mg by mouth as needed. Problem List As Of Date 05/17/2024 Noted Resolved ATROPHIC VAGINITIS [N95.2] 10/06/2006 Hyperlipidemia [E78.5] HTN (hypertension) [I10] GERD (gastroesophageal reflux disease) [K21.9] CAD (coronary artery disease) [I25.10] History of bladder cancer [Z85.51] 12/06/2022 Disposition: Return if symptoms worsen or fail to improve, for Keep next scheduled appointment.. Follow-up and Disposition History for Encounter Date Provider Department Center 05/17/2024 [id number] GARSIA [facility] Encounter Status:Closed by KENZIE GARSIA on 05/17/24 PROGRESS Observed: 05/14/2024 1:51 PM Status: COMPLETED Source: [facility] HNO ID: [id number] Author: PERCY VINCENT MD Service: ? Author Type: Physician Type: Progress Notes Filed: 05/21/2024 02:05 Note Text: This note was created using Numbrs AGriter. Subjective PAST MEDICAL HISTORY Diagnosis Date CAD (coronary artery disease) Dr. Kelley; sounds like has blockage with collaterals GERD (gastroesophageal reflux disease) History of bladder cancer ~2008 Dr. Cadena; yearly cystoscopy HTN (hypertension) Hyperlipidemia IBS (irritable bowel syndrome) swings back and forth with diarrhea and constipation Current Outpatient Medications Medication Sig hydroCHLOROthiazide 12.5 mg capsule Take 1 capsule by mouth once daily. esomeprazole (NEXIUM) 20 mg capsule Take 1 capsule by mouth once daily. As directed vit C/E/Zn/coppr/lutein/zeaxan (PRESERVISION AREDS-2 ORAL) Take 1 tablet by mouth once daily. COLLAGEN MISC simvastatin (ZOCOR) 20 mg tablet Take 1 tablet by mouth once daily. (from cardiology) glucosamine/chondr arora A sod (OSTEO BI-FLEX ORAL) Take by mouth. amLODIPine (NORVASC) 5 mg tablet Take 5 mg by mouth once daily. aspirin, enteric coated (ASPIRIN, ENTERIC COATED) 81 mg EC tablet Take 81 mg by mouth once daily. oxybutynin (DITROPAN) 5 mg tablet Take 5 mg by mouth as needed. acetaminophen-codeine (TYLENOL-COD #3) 300-30 mg per tablet Take 0.5-1 tablets by mouth every 4 hours as needed for pain (For back pain) for up to 7 days. No current facility-administered medications for this visit. te visit was spent counseling about above issues. Percy Vincent, Robert of Systems Objective BP 120/64 Pulse 93 Resp 16 Wt 68.4 kg (150 lb 12.7 oz) SpO2 98% BMI 27.84 kg/m? Physical Exam Constitutional: Appearance: Normal appearance. HENT: Head: Normocephalic. Eyes: Conjunctiva/sclera: Conjunctivae normal. Cardiovascular: Rate and Rhythm: Normal rate and regular rhythm. Heart sounds: Normal heart sounds. Pulmonary: Effort: Pulmonary effort is normal. Breath sounds: Normal breath sounds. Musculoskeletal: Right lower leg: No edema. Left lower leg: No edema. Skin: General: Skin is warm and dry. Neurological: General: No focal deficit present. Mental Status: She is alert and oriented to person, place, and time. Psychiatric: Mood and Affect: Mood normal. Behavior: Behavior normal. Thought Content: Thought content normal. Judgment: Judgment normal. Latest Ref Rng 04/04/2023 11/10/2023 05/03/2024 Protein, Total 6.3 - 8.0 g/dL 7.0 7.3 7.1 Albumin 3.9 - 4.9 g/dL 4.5 4.6 4.5 Calcium 8.5 - 10.2 mg/dL 9.3 9.7 9.5 Bilirubin, Total 0.2 - 1.3 mg/dL 0.8 0.8 0.5 Alkaline Phosphatase 34 - 123 U/L 94 100 109 AST 13 - 35 U/L 11 (L) 16 12 (L) ALT 7 - 38 U/L 7 6 (L) <5 (L) Glucose 74 - 99 mg/dL 95 103 (H) 100 (H) BUN 7 - 21 mg/dL 18 14 15 Creatinine 0.58 - 0.96 mg/dL 0.87 0.75 0.75 Sodium 136 - 144 mmol/L 140 138 140 Potassium 3.7 - 5.1 mmol/L 4.0 3.7 3.9 Chloride 98 - 107 mmol/L 101 102 101 CO2 22 - 30 mmol/L 30 27 28 Anion Gap 8 - 15 mmol/L 9 9 11 eGFR >=60 mL/min/1.73m? 70 83 83 WBC 3.70 - 11.00 k/uL 5.03 5.06 4.66 RBC 3.90 - 5.20 m/uL 3.54 (L) 3.47 (L) 3.40 (L) Hemoglobin 11.5 - 15.5 g/dL 12.2 12.1 11.7 Hematocrit 36.0 - 46.0 % 35.3 (L) 34.7 (L) 34.3 (L) MCV 80.0 - 100.0 fL 99.7 100.0 100.9 (H) MCH 26.0 - 34.0 pg 34.5 (H) 34.9 (H) 34.4 (H) MCHC 30.5 - 36.0 g/dL 34.6 34.9 34.1 RDW-CV 11.5 - 15.0 % 13.6 13.2 13.6 Platelet Count 150 - 400 k/uL 287 339 312 MPV 9.0 - 12.7 fL 12.0 11.6 12.3 Absolute nRBC <0.01 k/uL <0.01 <0.01 <0.01 Cholesterol, Total <200 mg/dL 158 145 159 Triglyceride <150 mg/dL 107 100 114 HDL Cholesterol >39 mg/dL 48 47 49 Non HDL Cholesterol <130 mg/dL 110 98 110 Fasting Time hrs 12 12 12 VLDL Cholesterol <30 mg/dL 21 20 23 TC:HDL Ratio <5.10 3.29 3.09 3.24 LDL Cholesterol <100 mg/dL 89 78 87 LDL:HDL Ratio <2.54 1.85 1.66 1.78 Hemoglobin A1C 4.3 - 5.6 % 5.4 Estimated Average Glucose mg/dL 108 Vitamin D 25 Hydroxy 31.0 - 80.0 ng/mL 38.8 39.8 Magnesium 1.7 - 2.3 mg/dL 2.4 (H) 2.3 Legend: (L) Low (H) High Assessment and Plan # Chronic pain of both knees (M25.561) # Primary osteoarthritis of both knees (M17.0) # Greater trochanteric pain syndrome of left lower extremity (M25.552) Tylenol with codeine still helps for pain when needed. No adverse effects. Helps her stay functional when needed. No signs of diversion or abuse of medication. Continue present management. Referral to PT,ortho or pain management as needed. # Primary hypertension (I10) - Managed with amlodipine and hydrochlorothiazide. - Continue current medication regimen. # Left shoulder pain, unspecified chronicity (M25.512) - Discussed differential diagnoses including bursitis and cervical radiculopathy. - Monitor for specific triggers or exacerbating factors. # Gastroesophageal reflux disease without esophagitis (K21.9) - Symptoms well-controlled with OTC Nexium 20 mg daily. - Previously doubled dose for one week with resolution of symptoms. - Continue current regimen. # Coronary artery disease involving [place] coronary artery of [place] heart without angina pectoris (I25.10) - No current symptoms of exertional chest pain or radiating arm pain. - Follow-up with cardiology scheduled in September. - Continue current management. # Mixed hyperlipidemia (E78.2) - LDL cholesterol at 87 mg/dL; goal is <70 mg/dL per cardiology guidelines. - Continue simvastatin as prescribed by cardiology. # Encounter for immunization (Z23) - Received RSV vaccine. - Discussed discontinuation of COVID-19 vaccinations per patient preference. - Recommended pneumococcal and Tdap vaccines; advised administration at pharmacy with Medicare Part D coverage. # Macrocytic anemia (D53.9) - Recent labs show RBC count at 3.4 x106/?L, hematocrit at 34.3%, and MCV at 100.9 fL. - Discussed potential deficiency in B vitamins. - Recommended supplementation with B12 1000 mcg and folic acid 1 mg daily. - Advised dietary intake of green leafy vegetables and meats. -Labs ordered for 6 months follow up. Percy Vincent MD CNOV Observed: 05/14/2024 1:40 PM Status: COMPLETED Source: [facility] Office Visit (INTMWS) MARYURI ARREDONDO ([id number]) 1945 F Date Time Provider Department 05/14/24 1:40 PM PERCY VINCENT INTMWS During your visit today, we recorded the following information about you: Pulse Respiration Blood pressure Weight 93/minute 16/minute 120/64 68.4 kg Percy Vincent MD 05/21/2024 2:05 AM Signed This note was created using Numbrs AGriter. Subjective PAST MEDICAL HISTORY Diagnosis Date CAD (coronary artery disease) Dr. Kelley; sounds like has blockage with collaterals GERD (gastroesophageal reflux disease) History of bladder cancer ~2008 Dr. Cadena; yearly cystoscopy HTN (hypertension) Hyperlipidemia IBS (irritable bowel syndrome) swings back and forth with diarrhea and constipation Current Outpatient Medications Medication Sig hydroCHLOROthiazide 12.5 mg capsule Take 1 capsule by mouth once daily. esomeprazole (NEXIUM) 20 mg capsule Take 1 capsule by mouth once daily. As directed vit C/E/Zn/coppr/lutein/zeaxan (PRESERVISION AREDS-2 ORAL) Take 1 tablet by mouth once daily. COLLAGEN MISC simvastatin (ZOCOR) 20 mg tablet Take 1 tablet by mouth once daily. (from cardiology) glucosamine/chondr arora A sod (OSTEO BI-FLEX ORAL) Take by mouth. amLODIPine (NORVASC) 5 mg tablet Take 5 mg by mouth once daily. aspirin, enteric coated (ASPIRIN, ENTERIC COATED) 81 mg EC tablet Take 81 mg by mouth once daily. oxybutynin (DITROPAN) 5 mg tablet Take 5 mg by mouth as needed. acetaminophen-codeine (TYLENOL-COD #3) 300-30 mg per tablet Take 0.5-1 tablets by mouth every 4 hours as needed for pain (For back pain) for up to 7 days. No current facility-administered medications for this visit. te visit was spent counseling about above issues. Percy Vincent MD Review of Systems Objective BP 120/64 Pulse 93 Resp 16 Wt 68.4 kg (150 lb 12.7 oz) SpO2 98% BMI 27.84 kg/m? Physical Exam Constitutional: Appearance: Normal appearance. HENT: Head: Normocephalic. Eyes: Conjunctiva/sclera: Conjunctivae normal. Cardiovascular: Rate and Rhythm: Normal rate and regular rhythm. Heart sounds: Normal heart sounds. Pulmonary: Effort: Pulmonary effort is normal. Breath sounds: Normal breath sounds. Musculoskeletal: Right lower leg: No edema. Left lower leg: No edema. Skin: General: Skin is warm and dry. Neurological: General: No focal deficit present. Mental Status: She is alert and oriented to person, place, and time. Psychiatric: Mood and Affect: Mood normal. Behavior: Behavior normal. Thought Content: Thought content normal. Judgment: Judgment normal. Latest Ref Rng 04/04/2023 11/10/2023 05/03/2024 Protein, Total 6.3 - 8.0 g/dL 7.0 7.3 7.1 Albumin 3.9 - 4.9 g/dL 4.5 4.6 4.5 Calcium 8.5 - 10.2 mg/dL 9.3 9.7 9.5 Bilirubin, Total 0.2 - 1.3 mg/dL 0.8 0.8 0.5 Alkaline Phosphatase 34 - 123 U/L 94 100 109 AST 13 - 35 U/L 11 (L) 16 12 (L) ALT 7 - 38 U/L 7 6 (L) <5 (L) Glucose 74 - 99 mg/dL 95 103 (H) 100 (H) BUN 7 - 21 mg/dL 18 14 15 Creatinine 0.58 - 0.96 mg/dL 0.87 0.75 0.75 Sodium 136 - 144 mmol/L 140 138 140 Potassium 3.7 - 5.1 mmol/L 4.0 3.7 3.9 Chloride 98 - 107 mmol/L 101 102 101 CO2 22 - 30 mmol/L 30 27 28 Anion Gap 8 - 15 mmol/L 9 9 11 eGFR >=60 mL/min/1.73m? 70 83 83 WBC 3.70 - 11.00 k/uL 5.03 5.06 4.66 RBC 3.90 - 5.20 m/uL 3.54 (L) 3.47 (L) 3.40 (L) Hemoglobin 11.5 - 15.5 g/dL 12.2 12.1 11.7 Hematocrit 36.0 - 46.0 % 35.3 (L) 34.7 (L) 34.3 (L) MCV 80.0 - 100.0 fL 99.7 100.0 100.9 (H) MCH 26.0 - 34.0 pg 34.5 (H) 34.9 (H) 34.4 (H) MCHC 30.5 - 36.0 g/dL 34.6 34.9 34.1 RDW-CV 11.5 - 15.0 % 13.6 13.2 13.6 Platelet Count 150 - 400 k/uL 287 339 312 MPV 9.0 - 12.7 fL 12.0 11.6 12.3 Absolute nRBC <0.01 k/uL <0.01 <0.01 <0.01 Cholesterol, Total <200 mg/dL 158 145 159 Triglyceride <150 mg/dL 107 100 114 HDL Cholesterol >39 mg/dL 48 47 49 Non HDL Cholesterol <130 mg/dL 110 98 110 Fasting Time hrs 12 12 12 VLDL Cholesterol <30 mg/dL 21 20 23 TC:HDL Ratio <5.10 3.29 3.09 3.24 LDL Cholesterol <100 mg/dL 89 78 87 LDL:HDL Ratio <2.54 1.85 1.66 1.78 Hemoglobin A1C 4.3 - 5.6 % 5.4 Estimated Average Glucose mg/dL 108 Vitamin D 25 Hydroxy 31.0 - 80.0 ng/mL 38.8 39.8 Magnesium 1.7 - 2.3 mg/dL 2.4 (H) 2.3 Legend: (L) Low (H) High Assessment and Plan # Chronic pain of both knees (M25.561) # Primary osteoarthritis of both knees (M17.0) # Greater trochanteric pain syndrome of left lower extremity (M25.552) Tylenol with codeine still helps for pain when needed. No adverse effects. Helps her stay functional when needed. No signs of diversion or abuse of medication. Continue present management. Referral to PT,ortho or pain management as needed. # Primary hypertension (I10) - Managed with amlodipine and hydrochlorothiazide. - Continue current medication regimen. # Left shoulder pain, unspecified chronicity (M25.512) - Discussed differential diagnoses including bursitis and cervical radiculopathy. - Monitor for specific triggers or exacerbating factors. # Gastroesophageal reflux disease without esophagitis (K21.9) - Symptoms well-controlled with OTC Nexium 20 mg daily. - Previously doubled dose for one week with resolution of symptoms. - Continue current regimen. # Coronary artery disease involving [place] coronary artery of [place] heart without angina pectoris (I25.10) - No current symptoms of exertional chest pain or radiating arm pain. - Follow-up with cardiology scheduled in September. - Continue current management. # Mixed hyperlipidemia (E78.2) - LDL cholesterol at 87 mg/dL; goal is <70 mg/dL per cardiology guidelines. - Continue simvastatin as prescribed by cardiology. # Encounter for immunization (Z23) - Received RSV vaccine. - Discussed discontinuation of COVID-19 vaccinations per patient preference. - Recommended pneumococcal and Tdap vaccines; advised administration at pharmacy with Medicare Part D coverage. # Macrocytic anemia (D53.9) - Recent labs show RBC count at 3.4 x106/?L, hematocrit at 34.3%, and MCV at 100.9 fL. - Discussed potential deficiency in B vitamins. - Recommended supplementation with B12 1000 mcg and folic acid 1 mg daily. - Advised dietary intake of green leafy vegetables and meats. -Labs ordered for 6 months follow up. MD Melisa Shaikh Liza D, MD 05/14/2024 2:33 PM Addendum - Pre-op appointment scheduled for Friday with Kenzie; she will handle all pre-operative requirements and forms for your upcoming eye surgery. - Take 1,000 micrograms of B12 and 1 milligram of folic acid daily to support red blood cell production. - Prescription for Tylenol with codeine sent to [facility]. 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 - Contact the [facility] for assistance with billing disputes related to your depression and anxiety screenings. Allergies As of Date: 05/14/2024 Noted Allergy Reaction MORPHINE 10/06/2006 8 - GI Upset Date Reviewed: 05/14/2024 Reviewed by: Sommer Rodriguez LPN - Fully Assessed Primary Visit Diagnosis:Chronic pain of both knees [M25.561, M25.562, G89.29] Other Visit Diagnoses:Primary hypertension [I10] Primary osteoarthritis of both knees [M17.0] Greater trochanteric pain syndrome of left lower extremity [M25.552] Left shoulder pain, unspecified chronicity [M25.512] Gastroesophageal reflux disease without esophagitis [K21.9] Coronary artery disease involving [place] coronary artery of [place] heart without angina pectoris [I25.10] Mixed hyperlipidemia [E78.2] Encounter for immunization [Z23] Macrocytic anemia [D53.9] Order(s):acetaminophen-codeine (TYLENOL-COD #3) 300-30 mg per tabletTake 0.5-1 tablets by mouth every 4 hours as needed for pain (For back pain) for up to 7 days.Disp: 42 tabletRfl: 0 TDAP PRINTED PHARMACY INSTRUCTIONS [[id number]] Order #: [id number]: 1 VITAMIN B12 [SQB12] Order #: [id number] FUTURE FOLATE, SERUM [SQSERFOL] Order #: [id number] FUTURE Prescriptions as of 05/21/2024 - acetaminophen-codeine (TYLENOL-COD #3) 300-30 mg per tablet Take 0.5-1 tablets by mouth every 4 hours as needed for pain (For back pain) for up to 7 days. - hydroCHLOROthiazide 12.5 mg capsule Take 1 capsule by mouth once daily. - esomeprazole (NEXIUM) 20 mg capsule Take 1 capsule by mouth once daily. As directed - vit C/E/Zn/coppr/lutein/zeaxan (PRESERVISION AREDS-2 ORAL) Take 1 tablet by mouth once daily. - COLLAGEN MISC - simvastatin (ZOCOR) 20 mg tablet Take 1 tablet by mouth once daily. (from cardiology) - glucosamine/chondr arora A sod (OSTEO BI-FLEX ORAL) Take by mouth. - amLODIPine (NORVASC) 5 mg tablet Take 5 mg by mouth once daily. - aspirin, enteric coated (ASPIRIN, ENTERIC COATED) 81 mg EC tablet Take 81 mg by mouth once daily. - oxybutynin (DITROPAN) 5 mg tablet Take 5 mg by mouth as needed. Medication notes this encounter ESOMEPRAZOLE MAGNESIUM 20 MG CAPSULE,DELAYED RELEASE >> Percy Vincent MD 05/14/2024 2:18 PM >> PERCY VINCENT FriMay 14, 2024 2:18 PM OTC Problem List As Of Date 05/14/2024 Noted Resolved ATROPHIC VAGINITIS [N95.2] 10/06/2006 Hyperlipidemia [E78.5] HTN (hypertension) [I10] GERD (gastroesophageal reflux disease) [K21.9] CAD (coronary artery disease) [I25.10] History of bladder cancer [Z85.51] 12/06/2022 Other instructions from your clinician: - Pre-op appointment scheduled for Friday with Kenzie; she will handle all pre-operative requirements and forms for your upcoming eye surgery. - Take 1,000 micrograms of B12 and 1 milligram of folic acid daily to support red blood cell production. - Prescription for Tylenol with codeine sent to [facility]. 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 - [email or web address] assistance with billing disputes related to your depression and anxiety screenings. Prescriptions ordered this encounter Disp Refills Start End ACETAMINOPHEN 300 MG-CODEINE 30 MG T* 42 t* 0 05/14/2024 05/21/2024 Route: ORAL Sig: Take 0.5-1 tablets by mouth every 4 hours as needed for pain (For back pain) for up to 7 days. Medications Discontinued During This Encounter Prescriptions - acetaminophen-codeine (TYLENOL-COD #3) 300-30 mg per tablet (Discontinued) Take 0.5-1 tablets by mouth every 4 hours as needed for pain (For back pain) for up to 7 days. Level of Service: OFFICE/OUTPATIENT ESTABLISHED MOD MDM 30 MIN [14996] Additional E/M codes: VISIT CPLX INHERENT EANDM ASSOC WITH MED * Follow-up and Disposition History for Encounter Date Provider Department Center 05/14/2024 [id number] [facility]INC[facility] En[facility] Status:Closed by PERCY VINCENT on 05/21/24 COMP METAB 1999 PNL SERPL Collected: 11:07 AM Status: F Source: [facility] Order Comment: Specimen Type : BLOOD SPECIMEN Ordering Facility: [facility] Address: [address] [place] [address] TYPE CODE TESTS RESULT OUT OF RANGE REFERENCE UNITS LAB 2885-2(LOINC) Prot SerPl-mCnc 7.1 6.3-8.0 g/dL LAB 1751-7(LOINC) Albumin SerPl-mCnc 4.5 3.9-4.9 g/dL LAB 46528-2(LOINC) Calcium SerPl-mCnc 9.5 8.5-10.2 mg/dL LAB 1975-2(LOINC) Bilirub SerPl-mCnc 0.5 0.2-1.3 mg/dL LAB 6768-6(LOINC) ALP SerPl-cCnc 109 34-123 U/L LAB 1920-8(LOINC) AST SerPl-cCnc 12 Low 13-35 U/L LAB 1742-6(LOINC) ALT SerPl-cCnc <5 Low 7-38 U/L LAB 2345-7(LOINC) Glucose SerPl-mCnc 100 High 74-99 mg/dL Result Comment: The [place] [employer] (ADA) provides guidance for cutoff values for fasting glucose and random glucose. The ADA defines fasting as no caloric intake for at least 8 hours. Fasting plasma glucose results between 100 to 125 mg/dL indicate increased risk for diabetes (prediabetes). Fasting plasma glucose results greater than or equal to 126 mg/dL meet the criteria for diagnosis of diabetes. In the absence of unequivocal hyperglycemia, results should be confirmed by repeat testing. In a patient with classic symptoms of hyperglycemia or hyperglycemic crisis, random plasma glucose results greater than or equal to 200 mg/dL meet the criteria for diagnosis of diabetes. Reference: Standards of Medical Care in Diabetes 2016, [place] [employer]. Diabetes Care. 2016.39(Suppl 1). LAB 3094-0(LOINC) BUN SerPl-mCnc 15 7-21 mg/ dL LAB 2160-0(LOINC) Creat SerPl-mCnc 0.75 0.58-0.96 mg/dL LAB 2951-2(LOINC) Sodium SerPl-sCnc 140 136-144 mmol/L LAB 2823-3(LOINC) Potassium SerPl-sCnc 3.9 3.7-5.1 mmol/L LAB 2075-0(LOINC) Chloride SerPl-sCnc 101 98-107 mmol/L LAB 2028-9(LOINC) CO2 SerPl-sCnc 28 22-30 mmo l/L LAB 36047-0(LOINC) Anion Gap SerPl-sCnc 11 8-15 mmol/L LAB 61551-9(LOINC) Creatinine + eGFR Pnl SerPlBld 83 >=60 mL/min/1 .73m??? Result Comment: Estimated Gl omerular Filtration Rate (eGFR) is calculated using the 2020 CKD-EPI creatinine equation. This equation utilizes serum creatinine, sex, and age as parameters. The creatinine assay has traceable calibration to isotope dilution-mass spectrometry. Refer to KDIGO guidelines for clinical interpretation. In patients with unstable renal function, e.g. those with acute kidney injury, the eGFR may not accurately reflect actual GFR. Performed By: #### 91787-0 # ### [facility] CLIA [id number] [address] [place] [address] [place] 25(OH)D3 SERPL-MCNC Collected: 05/04/19 25 11:07 AM Status: F Source: [facility] Order Comment: Specimen Type : BLOOD SPECIMEN Ordering Facility: [facility] Address: [address] [place] [address] TYPE CODE TESTS RESULT OUT OF RANGE REFERENCE UNITS LAB 1989-3(LOINC) 25(OH)D3 SerPl-mCnc 39.8 31.0-80.0 ng/mL Result Comment: Classificati on of 25 OH Vitamin D status: Deficiency/Insufficiency: < or = 30 ng/ml. Sufficiency/Optimal Levels: 31-80 ng/mL Toxicity: > 100 ng/mL. Test performed by chemiluminescent immunoassay. Performed By: #### 1989-3 ## ## [facility] CLIA [id number] [address] [place] [address] STATES OF [facility] LIPID 1996 PNL SERPL Collected: 025 11:07 AM Status: F Source: [facility] Order Comment: Specimen Type : BLOOD SPECIMEN Ordering Facility: [facility] Address: [address] [place] [address] TYPE CODE TESTS RESULT OUT OF RANGE REFERENCE UNITS LAB 2093-3(LOINC) Cholest SerPl-mCnc 159 <200 mg/dL Result Comment: <200 mg/dL, Desirable 200-239 mg/dL, Borderline high >239 mg/dL, High LAB 2571-8(LOINC) Trigl SerPl-mCnc 114 <150 mg/dL Result Comment: <150 mg/dL, Normal 150-199 mg/dL, Borderline high 200-499 mg/dL, High >499 mg/dL, Very high LAB 2085-9(LOINC) HDLc SerPl-mCnc 49 >39 mg/dL Result Comment: 40-59 mg/dL, Acceptable >59 mg/dL, High: Negative risk factor for coronary heart disease <40 mg/dL, Low: Positive risk factor for coronary heart disease LAB 84896-9(LOINC) NonHDLc SerPl-mCnc 110 <130 mg/dL Result Comment: <130 mg/dL, Optimal 130-159 mg/dL, Near optimal/above optimal 160-189 mg/dL, Borderline high 190-219 mg/dL, High >219 mg/dL, Very high Secondary prevention optimal non HDL Cholesterol levels are recommended to be <100 mg/dL LAB FT FASTING TIME 12 hrs LAB 20526-5(LOINC) VLDLc SerPl Calc-mCnc 23 <30 mg/dL LAB 9830-1(LOINC) Cholest/HDLc SerPl 3.24 <5.10 LAB 2089-1(LOINC) LDLc SerPl-mCnc 87 <100 mg/dL Result Comment: <100 mg/dL, Optimal 100-129 mg/dL, Near optimal/above optimal 130-159 mg/dL, Borderline high 160-189 mg/dL, High >189 mg/dL, Very high Secondary prevention optimal LDL Cholesterol levels are recommended to be < 70 mg/dL LAB 56104-9(LOINC) LDLc/HDLc SerPl 1.78 <2.54 Result Comment: Reference: 1. National Cholesterol Education Program ATP III Guideline At-A-Glance Quick Desk Reference: National Heart, Lung, and Blood [place]. National Institutes of Health. 2001: NIH Publication No. 01-3305. 2. An International Atherosclerosis Society position paper: global recommendations for the management of dyslipidemia: executive summary, Atherosclerosis. 2014: 232(2):410-413. Performed By: #### 16570-7 # ### [facility] CLIA [id number] [address] [place] [address] STATES OF [facility] CLIA [id number] [address] [place] [address] STATES OF [facility] CBC PNL BLD AUTO Collected: 5 11:07 AM Status: F Source: [facility] Order Comment: Specimen Type : BLOOD SPECIMEN Ordering Facility: [facility] Address: [address] [place] [address] TYPE CODE TESTS RESULT OUT OF RANGE REFERENCE UNITS LAB 6690-2(LOINC) WBC # Bld Auto 4.66 3.70-11.00 k/uL LAB 789-8(LOINC) RBC # Bld Auto 3.40 Low 3.90-5.20 m/uL LAB 718-7(LOINC) Hgb Bld-mCnc 11.7 11.5-15.5 g/dL LAB 4544-3(LOINC) Hct VFr Bld Auto 34.3 Low 36.0-46.0 % LAB 787-2(LOINC) MCV RBC Auto 100.9 High 80.0-100.0 fL LAB 785-6(LOINC) MCH RBC Qn Auto 34.4 High 26.0-34.0 pg LAB 786-4(LOINC) MCHC RBC Auto-mCnc 34.1 30.5-36.0 g/dL LAB 49464-1([facility]) RDW RBC-Rto 13.6 11.5-15.0 % LAB 777-3([facility]) Platelet # Bld Auto 312 150-400 k/uL LAB 98461-4([facility]) PMV Bld Auto 12.3 9.0-12.7 fL LAB 771-6([facility]) nRBC # Bld Auto <0.01 <0.01 k/uL Performed By: #### 03229-6 # ### [facility] CLIA [id number] [address] [place] [address] CNPN Observed: 01/05/2024 12:00 AM Status: COMPLETED Source: [facility] Telephone (INTMWS) MARYURI ARREDONDO ([id number]) 1945 F Date Time Provider Department 01/05/24 PERCY VINCENT INTMWS During your visit today, we recorded the following information about you: Cheri Hopkins RN 01/05/2024 3:39 PM Signed Patient calling and reports she was seen by PCP on 11/14/23 and Medicare will not cover the current code for: Encounter for screening examination for other mental health and behavioral disorders [Z13.39] Reports the code is a non-code. Patient asking if a different code can be submitted? Or other recommendation? Please call patient back with an update. [phone]. Thank you. Percy Vincent MD 01/09/2024 7:26 PM Signed Will cancel the codes for screening for depression and mental health... Radha Carvalho RN 01/26/2024 10:40 AM Signed Msg sent to Marianna Rosario to confirm. Allergies As of Date: 01/05/2024 Noted Allergy Reaction MORPHINE 10/06/2006 8 - GI Upset Date Reviewed: 11/14/2023 Reviewed by: Victorina Alvarado LPN - Fully Assessed Reason for Visit: Patient Request [1056] Prescriptions as of 01/26/2024 - hydroCHLOROthiazide 12.5 mg capsule Take 1 capsule by mouth once daily. - esomeprazole (NEXIUM) 20 mg capsule Take 1 capsule by mouth once daily. As directed - vit C/E/Zn/coppr/lutein/zeaxan (PRESERVISION AREDS-2 ORAL) Take 1 tablet by mouth once daily. - acetaminophen-codeine (TYLENOL-COD #3) 300-30 mg per tablet Take 0.5-1 tablets by mouth every 4 hours as needed for pain (For back pain) for up to 7 days. - COLLAGEN MISC - simvastatin (ZOCOR) 20 mg tablet Take 1 tablet by mouth once daily. (from cardiology) - glucosamine/chondr arora A sod (OSTEO BI-FLEX ORAL) Take by mouth. - amLODIPine (NORVASC) 5 mg tablet Take 5 mg by mouth once daily. - aspirin, enteric coated (ASPIRIN, ENTERIC COATED) 81 mg EC tablet Take 81 mg by mouth once daily. - oxybutynin (DITROPAN) 5 mg tablet Take 5 mg by mouth as needed. Problem List As Of Date 01/05/2024 Noted Resolved ATROPHIC VAGINITIS [N95.2] 10/06/2006 Hyperlipidemia [E78.5] HTN (hypertension) [I10] GERD (gastroesophageal reflux disease) [K21.9] CAD (coronary artery disease) [I25.10] History of bladder cancer [Z85.51] 12/06/2022 Encounter Status:Closed by PERCY VINCENT on 01/23/24 WILLA Observed: 12/23/2023 12:00 AM Status: COMPLETED Source: [facility] Telephone (INTWS) MARYURI ARRDEONDO ([id number]) 1945 F Date Time Provider Department 12/23/23 SAMANTHA PEREZ During your visit today, we recorded the following information about you: Jealni Godoy LPN 12/23/2023 12:35 PM Signed ----- Message from Samantha Lobato APRN.SCREW MACHINE TENDER sent at 12/23/2023 11:44 AM EST ----- Recent mammogram had benign findings, 1 year screening mammogram advised. Jelani Godoy LPN 12/23/2023 12:37 PM Signed Phoned patient left detailed message with results, notes from Andrés Perez LOG HANDLING EQUIPMENT OPERATOR on voicemail. Allergies As of Date: 12/23/2023 Noted Allergy Reaction MORPHINE 10/06/2006 8 - GI Upset Date Reviewed: 11/14/2023 Reviewed by: Victorina Alvarado LPN - Fully Assessed Reason for Visit: Results [95] Prescriptions as of 12/23/2023 - hydroCHLOROthiazide 12.5 mg capsule Take 1 capsule by mouth once daily. - esomeprazole (NEXIUM) 20 mg capsule Take 1 capsule by mouth once daily. As directed - vit C/E/Zn/coppr/lutein/zeaxan (PRESERVISION AREDS-2 ORAL) Take 1 tablet by mouth once daily. - acetaminophen-codeine (TYLENOL-COD #3) 300-30 mg per tablet Take 0.5-1 tablets by mouth every 4 hours as needed for pain (For back pain) for up to 7 days. - COLLAGEN MISC - simvastatin (ZOCOR) 20 mg tablet Take 1 tablet by mouth once daily. (from cardiology) - glucosamine/chondr arora A sod (OSTEO BI-FLEX ORAL) Take by mouth. - amLODIPine (NORVASC) 5 mg tablet Take 5 mg by mouth once daily. - aspirin, enteric coated (ASPIRIN, ENTERIC COATED) 81 mg EC tablet Take 81 mg by mouth once daily. - oxybutynin (DITROPAN) 5 mg tablet Take 5 mg by mouth as needed. Problem List As Of Date 12/23/2023 Noted Resolved ATROPHIC VAGINITIS [N95.2] 10/06/2006 Hyperlipidemia [E78.5] HTN (hypertension) [I10] GERD (gastroesophageal reflux disease) [K21.9] CAD (coronary artery disease) [I25.10] History of bladder cancer [Z85.51] 12/06/2022 Encounter Status:Closed by JELANI GODOY on 12/23/23 FILIBERTO SCREENING W ROMI Observed: 1:13 PM Status: F Source: [facility] * * *Final Report* * * DATE OF EXAM: Dec 22 2023 1:13PM WRW 0582 - FILIBERTO SCREENING W ROMI / PROCEDURE REASON: Encounter for screening mammogram for breast cancer * * * * Physician Interpretation * * * * RESULT: [place] [address] HISTORY: Patient is 78 years old and is seen for screening and is asymptomatic in both breasts. The patient has a history of bladder cancer. COMPARISON STUDIES: The present examination has been compared to prior imaging studies dated 07/18/2020 (mammogram), 12/18/2021 (mammogram) and 12/19/2022 (mammogram). MAMMOGRAM TECHNIQUE: The study was acquired using full field digital technology and interpreted from soft copy. Digital Breast Tomosynthesis (DBT) images were obtained and used to assist in the interpretation of this examination. Computer-aided detection was utilized by the radiologist in the interpretation of this examination. MAMMOGRAM FINDINGS: The breasts are heterogeneously dense, which may obscure small masses. No suspicious masses, calcifications or other abnormalities are seen in either breast. There are no significant changes from the prior study. IMPRESSION: There is no mammographic evidence of malignancy in either breast. Routine screening mammogram is recommended. Annual mammogram will be due in 1 year. BI-RADS Category 1: Negative RISK: Based on the Tyrer-Cuzick (TC) risk assessment model, this patient has a 1.4% lifetime risk of developing breast cancer, meaning they are at average risk for developing breast cancer. However, this is only an estimate based on available history provided on the patient's questionnaire. We encourage all patients to talk with their providers about these results, further recommendations for managing breast health, and appropriate supplemental screening options if the patient has dense breast tissue. Interpreting Radiologist: Danette Peters M.D. Electronically signed on: 12/22/2023 Automatic Casting Machine Operator: XOCHITL Hernandezriyrn Date/Time: Dec 22 2023 12:30P Dictated by: DANETTE PETERS MD This examination was interpreted and the report reviewed and electronically signed by: DANETTE PETERS MD on Dec 22 2023 5:00PM EST [id number] PROGRESS Observed: 12/22/2023 12:30 PM Status: COMPLETED Source: [facility] ID: [id number] Author: MARYURI MARIN Mammo Tech Service: ? Author Type: Brake Repairer Bus Type: Progress Notes Filed: 12/22/2023 12:38 Note Text: Radiology Service Progress Note PATIENT NAME: Maryuri Arredondo DATE OF SERVICE: December 22, 2023 TIME: 12:37 PM PATIENT IDENTITY VERIFICATION COMPLETED USING TWO (2) IDENTIFIERS: Name and Date of confirmed by patient verbally. FALL SCREENING: Has the patient had 2 falls in the last year or 1 fall with injury or currently using an Ambulatory Assistive Device (Walker, Cane, Wheelchair, Crutches, etc.)? No PATIENT GENDER DATA: Female. status: : No status: NO. PATIENT RELEVANT IMPLANT DATA REVIEWED: Not Applicable PATIENT PRESENTS WITH AN IMPLANTABLE OR ATTACHED COMMUNITY RESOURCE CONSULTANT: No RADIOLOGY DEPARTMENT: Mammography PERIPHERAL IV DATA: Not applicable SIGNED BY: Maryuri Marin [employer] [place] December 22, 2023 12:37 PM CNPN Observed: 11/25/2023 12:00 AM Status: COMPLETED Source: [facility] Telephone (INTMWS) MARIA ELENAMARYURI BRAVO ([id number]) 1945 F Date Time Provider Department 11/25/23 PERCY VINCENT INTMWS During your visit today, we recorded the following information about you: Marina Anderson RN 11/25/2023 9:40 AM Signed Patient calls to ask for mammogram orders to be placed. Patient reports that mammogram needs to be scheduled after 12/20/2023. Please call [phone] to schedule. ELIZABETH Blanco Terri, PROGRESS DEVELOPER.DARIUS 11/25/2023 2:29 PM Signed KIRA RayClovisKaylah Lee 11/25/2023 3:03 PM Signed Patient scheduled. Kaylah Ray November 25, 2023 3:03 PM Allergies As of Date: 11/25/2023 Noted Allergy Reaction MORPHINE 10/06/2006 8 - GI Upset Date Reviewed: 11/14/2023 Reviewed by: Victorina Alvarado LPN - Fully Assessed Reason for Visit: Orders [681] Primary Visit Diagnosis:Encounter for screening mammogram for breast cancer [Z12.31] Order(s):[facility] SCREENING W ROMI [[id number]] Order #: [id number] FUTURE Prescriptions as of 11/25/2023 - hydroCHLOROthiazide 12.5 mg capsule Take 1 capsule by mouth once daily. - esomeprazole (NEXIUM) 20 mg capsule Take 1 capsule by mouth once daily. As directed - vit C/E/Zn/coppr/lutein/zeaxan (PRESERVISION AREDS-2 ORAL) Take 1 tablet by mouth once daily. - acetaminophen-codeine (TYLENOL-COD #3) 300-30 mg per tablet Take 0.5-1 tablets by mouth every 4 hours as needed for pain (For back pain) for up to 7 days. - COLLAGEN MISC - simvastatin (ZOCOR) 20 mg tablet Take 1 tablet by mouth once daily. (from cardiology) - glucosamine/chondr arora A sod (OSTEO BI-FLEX ORAL) Take by mouth. - amLODIPine (NORVASC) 5 mg tablet Take 5 mg by mouth once daily. - aspirin, enteric coated (ASPIRIN, ENTERIC COATED) 81 mg EC tablet Take 81 mg by mouth once daily. - oxybutynin (DITROPAN) 5 mg tablet Take 5 mg by mouth as needed. Problem List As Of Date 11/25/2023 Noted Resolved ATROPHIC VAGINITIS [N95.2] 10/06/2006 Hyperlipidemia [E78.5] HTN (hypertension) [I10] GERD (gastroesophageal reflux disease) [K21.9] CAD (coronary artery disease) [I25.10] History of bladder cancer [Z85.51] 12/06/2022 Encounter Status:Closed by KAYLAH RAY on 11/25/23 ALLERGIES DATE TYPE / CODE NAME / CODE REACTION SEVERITY SOURCE 10/06/2006 DRUG INGREDI/[id number](SN OMED CT) MORPHINE GI UPSET [facility] ENCOUNTERS ADMIT/DISCHARGE ACCOUNT NUMBER ADMITTING ENCOUNTER CLASS LOC ATION SOURCE 11/15/2024/ 5 [id number] Ambulatory [facility] HospitalBuild ing:[facility] 11/08/2024/ 5 [id number] [facility] HospitalBuild ing:[address] 05/17/2024/ 5 [id number] [facility] HospitalBuild ing:[facility] 05/14/2024/ 5 [id number] [facility] HospitalBuild ing:[facility] 05/03/2024/ 5 [id number] [facility] HospitalBuild ing:[address] 12/22/2023/ 4 [id number] [facility] ENCOUNTER GUARANTOR PAYER SUBSCRIBER SOURCE 11/15/2024 Primary Insuranc e:MEDICARE A AND BPolicy Number: [id number] Date:0539-13-57Wgng Name:Vladislav Villegas PEARLB: [id number] [place] [address] [facility] 11/15/2024 Secondary Insura nce:MMO MEDICARE SUPPLEMENTPolicy Number: [id number] Date:1014-24-41Pram Name:Cheryle Villegas PEARLB: [id number] [place] [address] [facility] 11/08/2024 Primary Insuranc e:MEDICARE A AND BPolicy Number: [id number] Date:1778-20-46Kekb Name:Vladislav ARREDONDODOB: [id number] [place] [address] [facility] 11/08/2024 Secondary Insura nce:MMO MEDICARE SUPPLEMENTPolicy Number: [id number] Date:4056-98-38Uygm Name:Cheryle ARREDONDODOB: [id number] [place] [address] [facility] 05/17/2024 Primary Insuranc e:MEDICARE A AND BPolicy Number: [id number] Date:0109-73-37Maqs Name:Vladislav ARREDONDODOB: [id number] [place] [address] [facility] 05/17/2024 Secondary Insura nce:MMO MEDICARE SUPPLEMENTPolicy Number: [id number] Date:7442-01-23Ebgq Name:Cheryle TRUONGEYDOB: [id number] [place] [address] [facility] 05/14/2024 Primary Insuranc e:MEDICARE A AND BPolicy Number: [id number] Date:1064-32-93Nfdx Name:Vladislav TRUONGEYDOB: [id number] [place] [address] [facility] 05/14/2024 Secondary Insura nce:O MEDICARE SUPPLEMENTPolicy Number: [id number] Date:2076-55-30Dokm Name:Cheryle ARREDONDODOB: [id number] [place] [address] [facility] 05/03/2024 Primary Insuranc e:MEDICARE A AND BPolicy Number: [id number] Date:9818-01-79Tqqt Name:Vladislav TRUONGEYDOB: [id number] [place] [address] [facility] 05/03/2024 Secondary Insura nce:MMO MEDICARE SUPPLEMENTPolicy Number: [id number] Date:3269-50-21Jzvk Name:Cheryle Villegas DIONNESHELLYUNRULY: [id number] [place] [address] [facility] 12/22/2023 Primary Insuranc e:MEDICARE A AND BPolicy Number: [id number] Date:8966-42-23Bdns Name:Vladislav Villegas ANGELINA: [id number] [place] [address] [facility] 12/22/2023 Secondary Insura nce:MMO MEDICARE SUPPLEMENTPolicy Number: [id number] Date:5921-19-90Ooet Name:Cheryle Villegas ANGELINA: [id number] [place] [address] [facility]
--- NOTE | 2024-11-16 12:53 | STEWCON_ITS ---
Reason For Study Reason For Study: CAD,ASHD Stress Results Protocol: Gavin Protocol WITH DEFINITY Maximum Predicted HR: 143 bpm Target HR: 122 bpm % Maximum Predicted HR: 99 % DurationHeart Rate Stage (mm:ss) (bpm) BP Comment BASELINE 65 124/703 CC DEFINITY FOR ENTIRE TEST STAGE 1 3:00 118 158/82 STAGE 2 3:00 137 168/90FEELING TIRED, A LITTLE OUT OF BREATH STAGE 3 0:16 141 / FATIGUE, RECOVERY 91 140/86 Stress Duration: 6:16 mm:ss Maximum Stress HR: 141 bpm Baseline Echocardiogram Findings Stress Echo Wall motion Data Resting WM Intermediate WM Stress WM ECHO/Stress Test Echo W/Contrast Interpretation Summary Stress echocardiogram. 79-year-old lady with a history of chest pain from Stress EKG. Resting KG demonstrates normal sinus rhythm with a rate of 68 bpm n ormal intervals noted the resting blood pressure is 124/70 mmHg. The patient exercised currently regular Gavin protocol for total duration of 6 minutes and 16 seconds. Patient maintained sinus rhythm throughout the recording the maximum h eart rate attained was 144 bpm which was 100% of max impacted heart rate the maximum workload was 7.8 metabolic equivale nts. Occasional premature ventricular complexes were noted. The peak blood pressure was 168/90 mmHg. The test was ter minated due to fatigue and dyspnea. Good blood pressure response was exercise was recorded. Stress echocardiogram. The resting echocardiogram was performed with Definity e nhancement. The estimated ejection fraction at rest was noted to be 60%. With exercise there was thickening of all skinner reduction of the ventricular cavity size and peaking of ejection fraction at 70%. No wall motion abnormaliti es were noted to suggest ischemia. Conclusion: Exercise stress echocardiogram with no evidence of ischemia at a moderate workl oad. Good functional capacity. Ordering Physician: Juan Antonio Mast Referring Physician: Juan Antonio Mast Performed By: Terese Savage RDCS
--- NOTE | 2024-11-16 12:53 | CDU_ITS ---
Reason For Study Reason For Study: Dizziness Rt. Velocities/BP Lt. Velocities/BP Prox CCA 74/17 cm/sec. Prox CCA 107/19 cm/sec. Mid CCA 87/24 cm/sec. Mid CCA 106/23 cm/sec. Dist CCA 68/20 cm/sec. Dist CCA 77/20 cm/sec. Prox ICA 88/25 cm/sec. Prox ICA 134/34 cm/sec. Mid ICA 59/16 cm/sec. Mid ICA 111/24 cm/sec. Dist ICA 257/89 cm/sec. Dist ICA 94/24 cm/sec. Rt. ICA/CCA = 3.0. Lt. ICA/CCA = 1.26. Prox ECA 110/8 cm/sec. Prox ECA 88/9 cm/sec. Rt. Vert. 50/14 cm/sec. Lt. Vert. 39/9 cm/sec. Right Extracranial There is heterogeneous, irregular atherosclerotic plaque noted in the right common carotid artery. There is heterogeneous, irregular atherosclerotic plaque noted in the right internal carotid artery. The atherosclerotic plaque causes acoustic shadowing. There is no significant atherosclerotic plaque noted in the right external carotid artery. Antegrade flow is noted in the right vertebral artery. Left Extracranial There is heterogeneous, irregular atherosclerotic plaque noted in the left common carotid artery. There is heterogeneous, irregular atherosclerotic plaque noted in the left internal carotid artery. There is heterogeneous, irregular atherosclerotic plaque noted in the left external carotid artery. Antegrade flow is noted in the left vertebral artery. Procedure Carotid Duplex 45497. This is a Carotid Duplex examination using B-mode, color flow and specral Doppler. Prelim given to Nate Gauthier NP. Exam performed in department. VL/Carotid Duplex Ultrasound Interpretation Summary Severe (>70%) stenosis right extracranial internal carotid. Moderate (50-69%) stenosis left extracranial internal carotid. Patent and antegrade vertebrals bilaterally. Ordering Physician: Juan Antonio Mast Referring Physician: Carrie Mcgarry Performed By: Roof, Malu, RDCS, RVT
== END | disposition home or self-care (01) ==
LOC: CVS 12:44
PROVIDERS: PCP Internal Medicine; Referring Provider Internal Medicine Cardiovascular Disease; Visit Provider Internal Medicine Cardiovascular Disease
DX: I65.23 Occlusion and stenosis of bilateral carotid arteries (principal); I25.10 Atherosclerotic heart disease of native coronary artery without angina pectoris; R42 Dizziness and giddiness
CPT/HCPCS: 93017; 93350; 93880; Q9957; A4216; C8928

== ENCOUNTER → 2024-12-22 | Outpatient (CLI) | payer MEDICARE, OTHER, SELFPAY ==
--- NOTE | 2024-12-22 15:38 | CT_ITS ---
PROCEDURE: CTA HEAD AND NECK W/ CONTRAST 12/22/2024 REASON FOR EXAM: SEVERE R ICA STENOSIS TECHNIQUE: Procedure Code: CTCTA.HDNCK Modality: CT Procedure: CTA HEAD AND NECK W/ CONTRAST Multiplanar Sagittal and Coronal images were obtained. CONTRAST: VOLUME: mL One or more dose reduction techniques were used (e.g., Automated exposure control, adjustment of the mA and/or kV according to patient size, use of iterative reconstruction technique). COMPARISON: 03/23/2023. FINDINGS: HEAD: Atherosclerotic calcifications within the cavernous and supraclinoid segments of the bilateral ICAs result in less than 50% luminal narrowing. Otherwise the intracranial segments of the bilateral ICAs appear unremarkable. Hypoplastic A1 segment of the left GALE. The remainder of the left GALE appears unremarkable. The right GALE appears unremarkable. The anterior communicating artery is patent. The bilateral MCAs appear unremarkable. The intracranial segments of the bilateral vertebral arteries (V4) appear unremarkable. The basilar artery is unremarkable. A hypoplastic P1 segment left BACKROOM ASSOCIATE is noted, with a prominent patent left posterior communicating artery, compatible with a origin of the left BACKROOM ASSOCIATE. The remainder of the left BACKROOM ASSOCIATE appears unremarkable. The right BACKROOM ASSOCIATE appears unremarkable. NECK: Bilateral common carotid arteries appear unremarkable. Atherosclerotic calcifications within the bilateral carotid bulbs and proximal ICAs result in up to 70% luminal narrowing in the proximal left ICA, and less than 50% luminal narrowing in the proximal right ICA. Atherosclerotic calcification within the midcervical segment of the right ICA results in up to 90% luminal narrowing. The right vertebral artery is dominant. Otherwise the cervical segments of the bilateral vertebral arteries appear unremarkable. CT/CTA Head AND Neck W/ Contrast IMPRESSION: 1. Atherosclerosis resulting in up to 90 luminal narrowing in the midcervical segment of the right ICA. 2. Atherosclerosis resulting in up to 70% luminal narrowing in the proximal ce rvical segment of the left ICA. Reading Location: [id number]
== END | disposition home or self-care (01) ==
LOC: CT 15:34
PROVIDERS: PCP Internal Medicine; Referring Provider Physician Assistant; Visit Provider Physician Assistant
DX: I65.21 Occlusion and stenosis of right carotid artery (principal)
CPT/HCPCS: 70496; 70498; Q9967

== ENCOUNTER 2025-02-14 15:31 | Inpatient (IN) | payer MEDICARE, OTHER, SELFPAY ==
--- NOTE | 2025-02-08 11:52 | EKG12_ITS ---
Test Reason : PREOP Blood Pressure : */* mmHG Vent. Rate : 74 BPM Atrial Rate : 74 BPM P-R Int : 166 ms QRS Dur : 82 ms QT Int : 380 ms P-R-T Axes : 40 -24 20 degrees QTcB Int : 421 ms Normal sinus rhythm Normal ECG Confirmed by Redd Robins ([id number]), editor house organ AGUSTIN FRYE ([id number]) on 02/11/2025 8:12:57 AM Referred By: Doug Rodriguez Confirmed By: Redd Robins
[2025-02-08 12:44] LABS: Hematocrit 33.8 % (37-47); Hemoglobin 11.7 g/dL (12.0-15.0); Mean Corp Hgb Conc 34.6 g/dL (32-36); Mean Corpuscular Volume 103.7 fL (81-99); Mean Platelet Vol. 11.9 fl (6.2-12.0); Platelet Count 309 K/mm3 (150-450); RBC Distribution Width CV 13.6 % (11.6-14.6); RBC Distribution Width SD 51.3 fl (35.1-43.9); Red Blood Count 3.26 M/mm3 (4.2-5.4); White Blood Count 5.6 K/mm3 (4.4-11.0)
[2025-02-08 13:31] LABS: Anion Gap 12 (7-18); BUN 17 mg/dL (4-19); BUN/Creat Ratio 20.5 RATIO (10-20); Calcium,Total 9.3 mg/dL (7.6-11.0); Carbon Dioxide 27.7 mmol/L (20.0-29.0); Chloride 102 mmol/L (96-106); Glucose 98 mg/dL (70-99); Potassium 4.0 mmol/L (3.5-5.1)
--- NOTE | 2025-02-09 11:23 | PAT.ANE_ITS ---
Pre-Assessment Diagnosis/Proposed Procedure Planned Operative Procedure(s): (R) Right Carotid Endarterectomy Anesthesia History Anesthesia History - legal secretary: Anesthesia History - legal secretary Hx Hospitalization No 01/19/25 15:29 Any Problems With Anesthesia No 01/19/25 15:29 Cholinesterase deficiency No 01/19/25 15:29 You/Your Family Experience No 01/19/25 15:29 fever (hyperthermia) with Relationship Recent Exposure to Contagious No 10/17/23 08:14 Disease Does patient have nerve No 01/19/25 15:29 stimulator Patient instructed to have device shut off --Does patient have Pacemaker or ICD? When Was Last Pacemaker Check QUESTION #4 FULL TEXT: You/Your Family Experience fever (hyperthermia) with Anesthesia Last Oral Intake Last Oral intake: Last Oral Intake NPO since Meds taken in AM with sips of water? Meds patient instructed to take am of surgery PONV PONV - legal secretary: PONV - legal secretary Female Yes 01/19/25 15:29 HX of Motion Sickness No 01/19/25 15:29 HX of N/V After Surgery No 01/19/25 15:29 Non-Smoker Yes 01/19/25 15:29 Duration of Surgery greater Yes 01/19/25 15:29 than 60 minutes Number of Risk Factors 3 01/19/25 15:29 PONV Score Moderate Risk 01/19/25 15:29 Height & Weight Height & Weight: Anesthesia: Height & Weight Height 5 ft 3 in 10/15/24 13:17 Respiratory Assessment Respiratory Assessment - legal secretary: Respiratory Tract Infection Hx - legal secretary Hx Respiratory Tract Infection No 01/19/25 15:29 STOP Sleep Apnea STOP Sleep Apnea - legal secretary: STOP Sleep Apnea - legal secretary Hx Hypertension Yes: CONTROLLED ON MED 01/19/25 15:29 Hx Sleep Apnea No 01/19/25 15:29 CPAP BIPAP Do you snore loudly (louder No 01/19/25 15:29 than talking or can be heard Do you often feel tired/ No 01/19/25 15:29 fatigued/ sleepy during daytime? Has anyone observed you stop No 01/19/25 15:29 breathing during sleep? STOP Results Negative 01/19/25 15:29 QUESTION #5 FULL TEXT : Do you snore loudly (louder than talking or can be heard through closed doors)? 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 Specify any problems Hx of Preganancy in last 3 N/A 01/19/25 15:29 Months Nurse Filling Out Transfusion NBUCHER 01/19/25 15:29 & Questions: Date: 01/19/25 01/19/25 15:29 Time: 15:31 01/19/25 15:29 Patient unable to answer at this time (ie. confused, unrespo /Reproduction History /Reproductive History - legal secretary: /Reproductive Hx- legal secretary Hx Now No 01/19/25 15:29 Gestational Age (in weeks): EDC: Hx Hx Para Hx Section SAB No 01/19/25 15:29 Does the father of the baby or his family experience fever w Father of the baby Malignant Hypertension history comment [facility] Medical History (Updated 01/19/25 @ 15:40 by Tami Jones) Hepatitis Wears glasses Post-menopausal Cancer Alcohol use History of steroid therapy Arthritis High cholesterol Back pain Blackout Gastric reflux Former smoker Shortness of breath on exertion Leg cramps Normal stress echocardiogram History of echocardiogram Cardiology follow-up encounter COVID-19 Carotid arterial disease Carotid artery bruit Chest pain Atherosclerosis of coronary artery of [place] heart without angina pectoris Hypertension Hyperlipidemia Bladder cancer DDD (degenerative disc disease), lumbar IBS (irritable bowel syndrome) Carotid artery stenosis without cerebral infarction GERD (gastroesophageal reflux disease) Home Medications ?Medication ?Instructions ?Recorded ?Last Taken ?Type aspirin 81 mg chewable tablet 81 mg PO QHS HEART HEALT H 05/24/14 05/25/14 Histor y hydrochlorothiazide 12.5 mg capsule 12.5 mg PO DAILY H TN 05/24/14 Unknown History oxybutynin chloride 5 mg 5 mg PO PRN PRN Bladder Spas m 05/24/14 Unknown History tablet,extended release 24 hr esomeprazole magnesium 20 mg 20 mg PO DAILY GERD 02/03 Unknown History capsule,delayed release (Nexium) glucosamine-chondroitin 250 mg-200 1 tab PO DAILY SUPP LEMENT 07/03/20 Unknown History mg tablet (Osteo Bi-Flex) acetaminophen 300 mg-codeine 30 mg 0.5 tab PO PRN PRN Pain 03/27/22 Unknown History tablet amlodipine 5 mg tablet 5 mg PO QHS HTN #90 tabs Unknown Rx simvastatin 20 mg tablet 20 mg PO QPM HLD #90 tabs Unknown Rx cyanocobalamin (vitamin B-12) 1,000 mcg PO DAILY SUPPL EMENT 01/19/25 Unknown History 1,000 mcg tablet (Vitamin B-12) polyethylene glycol 3350 17 gram 17 g PO DAILY CONSTIP ATION 01/19/25 Unknown History oral powder packet (Miralax) vit C 250 mg-vit E 90 mg-zinc 40 1 tab PO BID SUPPLEME NT 01/19/25 Unknown History mg-copper 1 [id number] capsule (PreserVision AREDS-2) Allergy/AdvReac Type Severity Reaction Status Date / Time morphine Allergy Intermediate Nausea/Vom/ Verified 01/19/25 15:24 Diarrhea Family History Father CAD (coronary artery disease) CABG Mother Cancer of kidney Cancer of lung Surgical History (Updated 01/19/25 @ 15:40 by Tami Jones) History of esophagogastroduodenoscopy (EGD) History of colonoscopy Hx of neck surgery Status post excision of Rojas's neuroma H/O arthroscopic knee surgery History of partial hysterectomy History of left heart catheterization (05/25/14) Social History household members: other details: EX Smoking Status: Former smoker alcohol intake: current alcohol intake frequency: a few times a week Audit: Pertinent Findings Pertinent Findings EKG Perinent findings: 08/20/2023. Sinus rhythm with PACs. 6 6 bpm. Stress test pertinent findings: 11/16/2024. Negative. Moderate workload. EF 70%. Consult pertinent findings: Cardiology 10/15/2024. Hypertension. Chronic. Controlled. Coronary artery disease without angina small occluded nondominant right coronary artery. Repeat stress echo to rule out progressive ischemia. Recommendation Anesthesia Recommendation Anesthesia recommendation: OPTIMIZED for anesthesia
[2025-02-14] VITALS (15 sets, daily range): BP systolic 99–130; BP diastolic 52–99; PULSE 60–90; RESP 12–98; TEMP 36.2–36.8; O2SAT 93–100; BMI 25.4; BMI 27.1
[2025-02-14] MEDS: Lactated Ringers 1,000 ML 15 ML IV (09:58)
--- NOTE | 2025-02-14 10:17 | PRE.ANES_ITS ---
ASA Classification* ASA Classification ASA Classification: 3 Assessment & Plan Anesthesia* Anesthesia Assessment Anesthesia Assessment: Discussed sedation and/or anesthesia options, risks, benefits, and alternatives with patient/parents/legal guardian/POA. Questions invited. The patient/parents/legal guardian/POA seems to understand and agrees to proceed with anesthesia plan. Reviewed the physical assessment, medical history, allergy history and patient home medications list prior to surgery/procedure/anesthetic and documented any changes. Performed airway and anesthesia risk assessments. Anesthesia Type Anesthesia Type: General History Source History Obtained from:: Patient and Chart Anesthesia Focused Assessment* Temperature: 98 F Pulse Rate: 90 Blood Pressure: 130/99 Respiratory Rate: 14 Pulse Ox: 100 Oxygen Delivery Method: Room Air Airway Assessment Mouth opens: >3 cm Mallampati Score: II Teeth Condition: Caps/Crowns and Chipped/Broken Neck Range of motion (ROM): Full ROM Labs Anesthesia Preop lab: CBC WBC, (4.4-11.0) 5.6 K/mm3 02/08/25, 12: RBC, (4.2-5.4) 3.26 M/mm3 L 02/08/25, 12:14 Hgb, (12.0-15.0) 11.7 g/dL L 02/08/25, 12:14 Hct, (37-47) 33.8 % L 02/08/25, 12:14 Plt Count, (150-450) 309 K/mm3 02/08/25, 12:14 CHEMISTRY Potassium, (3.5-5.1) 4.0 mmol/L 02/08/25, 12:14 Sodium, (135-145) 142 mmol/L 02/08/25, 12:14 BUN, (4-19) 17 mg/dL 02/08/25, 12:14 Creatinine, (0.70-1.20) 0.83 mg/dL 02/08/25, 12:14 Glucose, (70-99) 98 mg/dL 02/08/25, 12:14 COAG PT, (11.7-14.9) 13.0 SECONDS 15, 13:14 Pre-Assessment Diagnosis/Proposed Procedure Planned Operative Procedure(s): (R) Right Carotid Endarterectomy Anesthesia History Anesthesia History - cutter barrel drum: Anesthesia History - cutter barrel drum Hx Hospitalization No 01/19/25 15:29 Any Problems With Anesthesia No 01/19/25 15:29 Cholinesterase deficiency No 01/19/25 15:29 You/Your Family Experience No 01/19/25 15:29 fever (hyperthermia) with Relationship Recent Exposure to Contagious No 02/14/25 09:51 Disease Does patient have nerve No 01/19/25 15:29 stimulator Patient instructed to have device shut off --Does patient have Pacemaker No 02/14/25 09:51 or ICD? When Was Last Pacemaker Check QUESTION #4 FULL TEXT: You/Your Family Experience fever (hyperthermia) with Anesthesia Last Oral Intake Last Oral intake: Last Oral Intake NPO since 22:00 02/14/25 09:51 Meds taken in AM with sips of No 02/14/25 09:51 water? Meds patient instructed to take am of surgery PONV PONV - cutter barrel drum: PONV - cutter barrel drum Female Yes 01/19/25 15:29 HX of Motion Sickness No 01/19/25 15:29 HX of N/V After Surgery No 01/19/25 15:29 Non-Smoker Yes 01/19/25 15:29 Duration of Surgery greater Yes 01/19/25 15:29 than 60 minutes Number of Risk Factors 3 01/19/25 15:29 PONV Score Moderate Risk 01/19/25 15:29 Height & Weight Height & Weight: Anesthesia: Height & Weight Height 5 ft 3 in 02/14/25 09:51 Weight: 65 kg 02/14/25 09:51 Body Mass Index (BMI) 25.4 02/14/25 09:51 Respiratory Assessment Respiratory Assessment - cutter barrel drum: Respiratory Tract Infection Hx - cutter barrel drum Hx Respiratory Tract Infection No 01/19/25 15:29 STOP Sleep Apnea STOP Sleep Apnea - cutter barrel drum: STOP Sleep Apnea - cutter barrel drum Hx Hypertension Yes: CONTROLLED ON MED 01/19/25 15:29 Hx Sleep Apnea No 01/19/25 15:29 CPAP BIPAP Do you snore loudly (louder No 01/19/25 15:29 than talking or can be heard Do you often feel tired/ No 01/19/25 15:29 fatigued/ sleepy during daytime? Has anyone observed you stop No 01/19/25 15:29 breathing during sleep? STOP Results Negative 01/19/25 15:29 QUESTION #5 FULL TEXT : Do you snore loudly (louder than talking or can be heard through closed doors)? 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 Specify any problems Hx of Preganancy in last 3 N/A 01/19/25 15:29 Months Nurse Filling Out Transfusion NBUCHER 01/19/25 15:29 & Questions: Date: 01/19/25 01/19/25 15:29 Time: 15:31 01/19/25 15:29 Patient unable to answer at this time (ie. confused, unrespo /Reproduction History /Reproductive History - cutter barrel drum: /Reproductive Hx- cutter barrel drum Hx Now No 01/19/25 15:29 Gestational Age (in weeks): EDC: Hx Hx Para Hx Section SAB No 01/19/25 15:29 Does the father of the baby or his family experience fever w Father of the baby Malignant Hypertension history comment Active Medications Active Medications: Current Medications Generic Name Dose Route Start Last Admin Trade Name Freq PRN Reason Stop Dose Admin Lactated Ringer's 1,000 mls @ 15 mls/hr 02/14/25 09:45 02/14/25 09:58 IV 15 mls/hr .Q48H LOUIE Administration PFSH Medical History Hepatitis Wears glasses Post-menopausal Cancer Alcohol use History of steroid therapy Arthritis High cholesterol Back pain Blackout Gastric reflux Former smoker Shortness of breath on exertion Leg cramps Normal stress echocardiogram History of echocardiogram Cardiology follow-up encounter COVID-19 Carotid arterial disease Carotid artery bruit Chest pain Atherosclerosis of coronary artery of [place] heart without angina pectoris Hypertension Hyperlipidemia Bladder cancer DDD (degenerative disc disease), lumbar IBS (irritable bowel syndrome) Carotid artery stenosis without cerebral infarction GERD (gastroesophageal reflux disease) Home Medications ?Medication ?Instructions ?Recorded ?Last Taken ?Type aspirin 81 mg chewable tablet 81 mg PO QHS HEART HEALT H 05/24/14 02/13/25 History hydrochlorothiazide 12.5 mg capsule 12.5 mg PO DAILY H TN 05/24/14 02/13/25 History oxybutynin chloride 5 mg 5 mg PO PRN PRN Bladder Spas m 05/24/14 Unknown History tablet,extended release 24 hr esomeprazole magnesium 20 mg 20 mg PO DAILY GERD 02/0302/13/25 History capsule,delayed release (Nexium) glucosamine-chondroitin 250 mg-200 1 tab PO DAILY SUPP LEMENT 07/03/20 02/13/25 History mg tablet (Osteo Bi-Flex) acetaminophen 300 mg-codeine 30 mg 0.5 tab PO PRN PRN Pain 03/27/22 Unknown History tablet amlodipine 5 mg tablet 5 mg PO QHS HTN #90 tabs 02/13/25 Rx simvastatin 20 mg tablet 20 mg PO QPM HLD #90 tabs 02/13/25 Rx cyanocobalamin (vitamin B-12) 1,000 mcg PO DAILY SUPPL EMENT 01/19/25 02/13/25 History 1,000 mcg tablet (Vitamin B-12) polyethylene glycol 3350 17 gram 17 g PO DAILY CONSTIP ATION 01/19/25 02/13/25 History oral powder packet (Miralax) vit C 250 mg-vit E 90 mg-zinc 40 1 tab PO BID SUPPLEME NT 01/19/25 02/13/25 History mg-copper 1 [id number] capsule (PreserVision AREDS-2) Allergy/AdvReac Type Severity Reaction Status Date / Time morphine Allergy Intermediate Nausea/Vom/ Verified 02/14/25 09:49 Diarrhea Family History Father CAD (coronary artery disease) CABG Mother Cancer of kidney Cancer of lung Surgical History History of esophagogastroduodenoscopy (EGD) History of colonoscopy Hx of neck surgery Status post excision of Rojas's neuroma H/O arthroscopic knee surgery History of partial hysterectomy History of left heart catheterization (05/25/14) Social History household members: other details: EX Smoking Status: Former smoker alcohol intake: current alcohol intake frequency: a few times a week Review of Systems (Anesthesia) ROS Narrative System reviewed and no additional complaints, except as documented.
[2025-02-14] MEDS: Midazolam 2 MG/2 ML Syringe IV (11:00)
--- NOTE | 2025-02-14 11:30 | PLAQ_PTH ---
PATIENT: NU ARREDONDO LOC: [facility] U#:[id number] AGE/SX: 79/F ROOM: ICU10 RE02/14/[address]: Dr. Doug Rodriguez MD : 1945 BED: 1 DIS: 02/15/2025 SPEC #: [id number] RECD: 02/14/25 18:14 STATUS: SONU REQ #: [id number] RYAN: 02/14/25 11:[address]: Doug Rodriguez DEPT: SURGICAL PATHOLOGY RECD BY: Unique Mahoney ENTERED: 02/15/25 08:35 SP TYPE: PLAQUE OTHR DR: Dr. Carrie Vincent MD Tissues: PLAQUE Procedures: Decalcification bone/plaque Surgery Specimen Level III HEADER OPERATION: Right Carotid Endarterectomy PRE-OP DIAGNOSIS: Stenosis of right carotid artery TISSUE SUBMITTED: A. Right Carotid Plaque MICROSCOPIC DIAGNOSIS A. Right carotid artery, plaque, endarterectomy: - Fibrointimal hyperplasia with calcification, consistent with atherosclerotic plaque. GROSS DESCRIPTION A. Received in fixative is one container labeled with the patient's name and designated right carotid plaque. The specimen consists of multiple pieces of woods-yellow calcified plaque measuring in aggregate 3 x 2.5 x 1.5 cm. The specimen is entirely submitted in one cassette after decalcification. CW:02/15/2025 CPT: 29959,50021
--- NOTE | 2025-02-14 11:32 | HP.PCM_ITS ---
HPI - General General Date of Admission: 02/14/25 HPI Narrative NU ARREDONDO, is a 79 F who presents with asymptomatic right carotid severe stenosis. The plaque has dense calcification so endarterectomy is her best surgical options. She has no prior neck surgery or XRT, no limitation in neck mobility. [facility] Medical History Hepatitis Wears glasses Post-menopausal Cancer Alcohol use History of steroid therapy Arthritis High cholesterol Back pain Blackout Gastric reflux Former smoker Shortness of breath on exertion Leg cramps Normal stress echocardiogram History of echocardiogram Cardiology follow-up encounter COVID-19 Carotid arterial disease Carotid artery bruit Chest pain Atherosclerosis of coronary artery of [place] heart without angina pectoris Hypertension Hyperlipidemia Bladder cancer DDD (degenerative disc disease), lumbar IBS (irritable bowel syndrome) Carotid artery stenosis without cerebral infarction GERD (gastroesophageal reflux disease) Home Medications ?Medication ?Instructions ?Recorded ?Last Taken ?Type aspirin 81 mg chewable tablet 81 mg PO QHS HEART HEALT H 05/24/14 02/13/25 History hydrochlorothiazide 12.5 mg capsule 12.5 mg PO DAILY H TN 05/24/14 02/13/25 History oxybutynin chloride 5 mg 5 mg PO PRN PRN Bladder Spas m 05/24/14 Unknown History tablet,extended release 24 hr esomeprazole magnesium 20 mg 20 mg PO DAILY GERD 02/0302/13/25 History capsule,delayed release (Nexium) glucosamine-chondroitin 250 mg-200 1 tab PO DAILY SUPP LEMENT 07/03/20 02/13/25 History mg tablet (Osteo Bi-Flex) acetaminophen 300 mg-codeine 30 mg 0.5 tab PO PRN PRN Pain 03/27/22 Unknown History tablet amlodipine 5 mg tablet 5 mg PO QHS HTN #90 tabs 02/13/25 Rx simvastatin 20 mg tablet 20 mg PO QPM HLD #90 tabs 02/13/25 Rx cyanocobalamin (vitamin B-12) 1,000 mcg PO DAILY SUPPL EMENT 01/19/25 02/13/25 History 1,000 mcg tablet (Vitamin B-12) polyethylene glycol 3350 17 gram 17 g PO DAILY CONSTIP ATION 01/19/25 02/13/25 History oral powder packet (Miralax) vit C 250 mg-vit E 90 mg-zinc 40 1 tab PO BID SUPPLEME NT 01/19/25 02/13/25 History mg-copper 1 [id number] capsule (PreserVision AREDS-2) Allergy/AdvReac Type Severity Reaction Status Date / Time morphine Allergy Intermediate Nausea/Vom/ Verified 02/14/25 09:49 Diarrhea Family History Father CAD (coronary artery disease) CABG Mother Cancer of kidney Cancer of lung Surgical History History of esophagogastroduodenoscopy (EGD) History of colonoscopy Hx of neck surgery Status post excision of Rojas's neuroma H/O arthroscopic knee surgery History of partial hysterectomy History of left heart catheterization (05/25/14) Social History household members: other details: EX Smoking Status: Former smoker alcohol intake: current alcohol intake frequency: a few times a week ROS Constitutional Constitutional: Denies chills, fever(s), frequent falls, lethargy or weakness Eyes Eyes: Denies blind spots, change in vision or loss of vision ENT HEENT: Denies bleeding gums, hoarseness or sore throat Cardiovascular Cardiovascular: Denies abdominal pain, bluish discoloration of hand/feet, chest pain with activity, claudication, cold extremities, cyanosis, dyspnea on exertion, erythema on extremities, irregular heart rhythm, leg edema, leg ulcers, numbness in extremities or weakness in extremities Respiratory/Chest Respiratory/Chest: Denies cough, excessive phlegm production, shortness of breath at rest, shortness of breath with exertion or wheezing Gastrointestinal Gastrointestinal: Denies anorexia, change in stool character, constipation, diarrhea, melena or rectal bleeding Genitourinary Genitourinary: Denies dysuria or hematuria Musculoskeletal Musculoskeletal: Denies abnormal gait Integumentary Integumentary: Reports other Details: ; Denies erythema, non-healing lesions or wounds Neurologic Neurologic: Denies abnormal speech, focal weakness, headache(s), loss of vision, numbness, paresthesias or sensory deficit Hematologic/Lymphatic Hematologic/Lymphatic: Denies easy bleeding, easy bruising or lymphadenopathy Patient's Goals Of Care . What would you like to achieve or improve as a result of your hospital stay?: w tf Vital Signs Vital Signs Vital Signs: 02/14/25 09:51 02/14/25 09:51 02/14/25 09:57 Temperature 98 F Temperature Source Temporal Pulse Rate 90 Respiratory Rate 14 Respiratory Pattern Normal Blood Pressure 130/99 H Blood Pressure Mean 109 Blood Pressure Source Monitor Blood Pressure Position Semi-Fowlers Blood Pressure Location Right Arm Baseline BP 130/99 Pulse Ox 100 Oxygen Delivery Method Room Air 02/14/25 10:19 Temperature 98 F Temperature Source Pulse Rate 90 Respiratory Rate 14 Respiratory Pattern Blood Pressure 130/99 H Blood Pressure Mean Blood Pressure Source Blood Pressure Position Blood Pressure Location Baseline BP Pulse Ox 100 Oxygen Delivery Method Room Air Weight Weight: 143 lb 4.807 oz Body Mass Index (BMI) 25.4 Physical Exam Const alert, oriented x3, no apparent distress and healthy appearing General Appearance: cooperative; Negative for combative or lethargic Orientation / Consciousness: awake Exam Limitations: no limitations HEENT Head and Scalp: normocephalic and atraumatic Eyes EOMs intact bilaterally General Eye: normal appearance of both eyes Neck full ROM General: trachea midline Resp normal respiratory effort, no use of accessory muscles and clear to auscultation bilaterally Effort and Inspection: Negative for labored, stridor or audible wheezes Cardio regular rate and regular rhythm Back/Spine Cervical Spine: cervical ROM normal Extremity full ROM, normal capillary refill and no clubbing, cyanosis or edema Skin no rashes or lesions noted and no wounds Neuro oriented x3, CN's II-XII intact bilaterally, no focal motor deficits and no sensory deficits noted Psych thought process normal, cooperative, affect normal, speech normal and activity/motor behavior normal Results Lab / Micro Data 02/08/25 12:14 02/08/25 12:14 Assessment & Plan Assessment/Plan (1) Stenosis of right carotid artery: PLAN: right CEA
[2025-02-14] MEDS: Lidocaine 1% (5 ml sdv) 5 ML Vial IV (12:06)
[2025-02-14] MEDS: Cefazolin 1 GM/5 ML Vial 2 GM IV (12:10)
[2025-02-14 14:13] LABS: ACT Activated Clotting Time 235 sec (74-137)
[2025-02-14 14:14] LABS: ACT Activated Clotting Time 235 sec (74-137)
[2025-02-14 14:14] LABS: ACT Activated Clotting Time 153 sec (74-137)
[2025-02-14] MEDS: Heparin Injection (Vial) 5,000 UNIT/ML VIAL 12000 UNIT IV (14:51)
[2025-02-14 14:55] LABS: ACT Activated Clotting Time 240 sec (74-137)
[2025-02-14] MEDS: fentaNYL 100 MCG/2 ML Ampul 350 MCG IV (15:44)
--- NOTE | 2025-02-14 16:09 | PCM.POST.ANE ---
Anesthesia: Postop Eval I Current Vital Signs Temperature: 97.2 F Pulse Rate: 61 Blood Pressure: 117/55 Respiratory Rate: 12 Pulse Ox: 94 Oxygen Delivery Method: Nasal Cannula Oxygen Flow Rate (L/min): 2 Assessment Airway patent: Yes Spontaneous unlabored respirations: Yes Mental status: Awake and Calm nausea: No Vomiting: No Anesthesia Complication: No Fluid Hydration Crystalloid volume administer (ml): 2,000 Total IV fluid infused: 2,000 Progress Note Anesthesia document: Postop Eval 1 completed: Yes
--- NOTE | 2025-02-14 16:34 | OP.PCM_ITS ---
Operative Report (Standard) Operative Information Date of Procedure: 02/14/25 Pre-Operative Diagnosis: Right carotid stenosis Post-Operative Diagnosis: Same Surgery/Procedure Performed: Right carotid endarterectomy edi architect: Yes Temporary Staff Accountant: Caden Huddleston Tasks completed by faculty research assistant: Opening, Dissecting tissue, Hemostasis: Tie and Retracting Additional assistant plant control operator?: Yes Additional It Network Architect #2: Vidhya Kyle Tasks completed by assistant plant control operator #2: Opening, Closing, Opening & closing, Hemostasis: Electrocautery and Retracting Type of Anesthesia: General RN Documented Start/Stop Times: Operation Date: 02/14/25 11:30 Case Time Into Pre-Op 02/14/25 09:31 Anesthesia Start 02/14/25 12:00 Into Room 02/14/25 12:00 Procedure Start 02/14/25 12:36 Procedure End 02/14/25 15:52 Anesthesia End 02/14/25 16:02 Out of Room 02/14/25 16:02 Into Recovery 02/14/25 16:05 Procedure Start Time: 12:35 Procedure Stop Time: 15:50 Select all DRAINS/GRAFTS/IMPLANTS that apply: Graft Graft details: Bovine pericardial patch Estimated Blood Loss: 30 Specimen collected: Yes Description of specimen(s) removed: Plaque Description of surgery: HPI: Patient is a 79-year-old female with asymptomatic severe right carotid artery stenosis. Her imaging revealed a very distal lesion with significant calcified plaque and stenosis well beyond the bifurcation approximately 5 cm and effectively at the distal extent of feasibility for endarterectomy. Given the dense calcification she was not felt to be a candidate for stenting. Given the more distal dissection required and technically challenging surgery Dr. Bautista was asked to assist with dissection and exposure in addition to the operating room provided ASSOCIATE PROFESSOR OF BIBLICAL STUDIES. Once we had satisfactory distal exposure and vessel control the remainder the case was completed with the assistance of the ASSOCIATE PROFESSOR OF BIBLICAL STUDIES. Description of procedure: Upon obtaining informed consent and verification correct patient procedure site the patient was taken to the operating where she was placed under general anesthesia and nasally intubated. She was then positioned prepped and draped in usual sterile fashion and time was performed. Oblique incision was made along the anterior border the sternocleidomastoid and Bovie was used to dissect down through subcutaneous tissue to the level of the platysma. The platysma was then divided and further dissection carried down to the sternocleidomastoid at which point self-retaining retractors put in position. The sternocleidomastoid was mobilized along its anterior border and reflected posterior laterally exposing the jugular vein. Sharp dissection was used dissect free the jugular vein proximally and distal beyond the facial vein. The facial vein and additional side branches were ligated allowing extensive retraction of the jugular vein and posterior laterally exposing the carotid vessels. Sharp dissection was used to dissect free the proximal common carotid artery renal right angle used to place a vessel loop. Neck sharp dissection was used to dissect free the distal onto the internal carotid artery. Hand-held retractor was placed retracting the digastric muscle cephalad and providing further exposure of the more distal internal carotid artery. The hypoglossal nerve was mobilized extensively and retracted both cephalad and caudad to permit further mobilization of the internal carotid artery. We were well above the hypoglossal nerve before we were able to visualize and palpate normal vessel without plaque or calcium. There were several other adjacent nerves that we visualized and Manipulation to a minimum while mobilizing the vessel. A right angle was used to place a vessel loop at this location and the patient was then heparinized allowed to circulate for 3 minutes. Finally sharp dissection was used dissect free the external carotid artery and a right angle used to place a vessel loop. The vessel then occluded first the internal followed by the common the external. A longitudinal arteriotomy was created with an 11 blade on the common carotid artery and extended distally a substantial length onto the internal carotid artery before we were able to traverse the area of plaque. There is approximately 5 cm of arteriotomy onto the internal carotid artery beyond the bifurcation. A 12 Yi [place] shunt was then placed first distally in the internal carotid artery allowed to backbleed before placing proximally in the common carotid artery. The shunt was interrogated with Doppler found to be patent with low resistance signal. We then performed an endarterectomy with a freer elevator with satisfactory endpoint distally on the internal carotid artery and eversion endarterectomy of the external carotid artery. The distal endpoint was tacked with 7-0 Prolene interrupted sutures and the lumen flushed with heparinized saline to clear of any debris. We then secured a bovine pericardial patch into position with a 6-0 Prolene in a running fashion. Prior to clipping a suture line the shunt was removed and the vessel was backbled. After completing a suture line the internal carotid artery was allowed to backbleed and the bifurcation and then reoccluded at its origin. Clamps were then released from the external and the common carotid artery allowing 10 heartbeats of antegrade flow into the external carotid artery prior to reestablishing flow into the internal carotid artery. The incision and suture line were then inspected for hemostasis and heparin reversed with protamine. 2 repair sutures were required on the mid internal carotid artery with satisfactory hemostasis then observed. There was a moderate mount of oozing from some of the more distal soft tissue so hemoblast topical hemostatic was then applied as well as manual pressure with satisfactory hemostasis observed. A 19 Yi channel ESTUARDO was then placed via separate stab incision and incision closed with 2-0 Vicryl, 3-0 Vicryl, 4-0 Monocryl and Dermabond for the skin. At the conclusion of the case the patient was awake from anesthesia moving all extremities to command with cranial nerves intact. She was then taken to recovery room with anticipated admission to the intensive care unit for hemodynamic and neurologic monitoring. Surgical Findings: See above Complications Complications: No
--- NOTE | 2025-02-14 16:57 | POSTOPAN2_ITS ---
Anesthesia Postop Eval I Sum Postop Eval Completion status Anesthesia document: Postop Eval 1 completed: Yes Anesthesia Postop Eval I Summary Anesthesia Postop Eval I Summary: Anesthesia Postop Eval I: Assessment Summary Airway patent Yes 02/14/25 16:09 WIRE FRAME LAMP SHADE [email or web address] Spontaneous unlabored Yes 02/14/25 16:09 WIRE FRAME LAMP SHADE [email or web address] respirations Mental status Awake,Calm 02/14/25 16:09 WIRE FRAME LAMP SHADE [email or web address] nausea No 02/14/25 16:09 WIRE FRAME LAMP SHADE [email or web address] Vomiting No 02/14/25 16:09 WIRE FRAME LAMP SHADE [email or web address] Anesthesia Postop Eval I: Fluid Summary Crystalloid volume administer 2,000 02/14/25 16:09 WIRE FRAME LAMP SHADE [email or web address] (ml) Colloids volume administered ( ml) Blood Product volume administered (ml) Total IV fluid infused 2,000 02/14/25 16:09 WIRE FRAME LAMP SHADE [email or web address] Anesthesia Postop Eval I: Summary Notes Anesthesia Complication No 02/14/25 16:09 WIRE FRAME LAMP SHADE [email or web address] Anesthesia Complication Comment: Post-operative progress note Anesthesia: Postop Eval II Evaluation Mental status: Awake and Calm Pain Level: 1 nausea: No Vomiting: No Complications Anesthesia Complication: No
--- NOTE | 2025-02-14 16:57 | PCM.POSTANE2 ---
Anesthesia Postop Eval I Sum Postop Eval Completion status Anesthesia document: Postop Eval 1 completed: Yes Anesthesia Postop Eval I Summary Anesthesia Postop Eval I Summary: Anesthesia Postop Eval I: Assessment Summary Airway patent Yes 02/14/25 16:09 LOAN SERVICING SPECIALIST.[email or web address] Spontaneous unlabored Yes 02/14/25 16:09 LOAN SERVICING SPECIALIST.SHOF respirations Mental status Awake,Calm 02/14/25 16:09 LOAN SERVICING SPECIALIST.SHOF nausea No 02/14/25 16:09 LOAN SERVICING SPECIALIST.SHOF Vomiting No 02/14/25 16:09 LOAN SERVICING SPECIALIST.SHOF Anesthesia Postop Eval I: Fluid Summary Crystalloid volume administer 2,000 02/14/25 16:09 LOAN SERVICING SPECIALIST.SHOF (ml) Colloids volume administered ( ml) Blood Product volume administered (ml) Total IV fluid infused 2,000 02/14/25 16:09 LOAN SERVICING SPECIALIST.SHOF Anesthesia Postop Eval I: Summary Notes Anesthesia Complication No 02/14/25 16:09 LOAN SERVICING SPECIALIST.SHOF Anesthesia Complication Comment: Post-operative progress note Anesthesia: Postop Eval II Evaluation Mental status: Awake and Calm Pain Level: 1 nausea: No Vomiting: No Complications Anesthesia Complication: No
[2025-02-14] MEDS: Cefazolin 1 GM/50 ML BAG IV (20:51)
[2025-02-14] MEDS: Acetaminophen/Codeine #3 Tablet 0.5 TABLET PO (20:55)
[2025-02-15] VITALS (7 sets, daily range): BP systolic 110–128; BP diastolic 58–77; PULSE 59–85; RESP 14–21; TEMP 36.6–36.7; O2SAT 93–98; BMI 25.9
[2025-02-15] MEDS: Acetaminophen/Codeine #3 Tablet 0.5 TABLET PO ×2 (01:04→05:29)
[2025-02-15] MEDS: Cefazolin 1 GM/50 ML BAG IV (04:13)
[2025-02-15] MEDS: Multivitamin (Healthy Eyes) Capsule 1 CAP PO (07:44)
[2025-02-15] MEDS: Polyethylene Glycol 3350 17 GM PACKET PO (07:45)
--- NOTE | 2025-02-15 08:47 | PCM.PN.SRG ---
Subjective Subjective I saw patient this morning at bedside. She was sitting up in bed, reports feeling well overall but did not sleep well. She reports expected operative site pain well controlled with tylenol. She denies headache, new/worsening numbness/paresthesias, weakness, vision changes. She has had liquid diet to this point. No other complaints. Objective Data Objective Data Vital Signs: Vital Signs Temp Pulse Resp BP Pulse Ox O2 Del Method O2 Flow Rate 97.9 F 72 20 H 122/63 H 93 Room Air 2 02/15/25 08:00 02/15/25 08:00 02/15/25 08:00 02/15/25 08:00 02/15/25 08:00 02/15/25 08:00 02/15/25 06:55 Oxygen Flow Rate (L/min) 2 Oxygen Delivery Method Room Air Weight: 146 lb 6 oz Body Mass Index (BMI) 25.9 Intake & Output: Intake and Output for Last 24 Hours 02/13/25 02/14/25 02/15/25 23:59 23:59 23:59 Intake Total 2168.5 / 2168.5 50 / 50 Output Total 38 / 63 Balance 2130.5 / 2105.5 Lab / Micro Data 02/08/25 12:14 02/08/25 12:14 Labs: Laboratory Results - last 24 hr 02/14/25 13:27: Activated Clotting Time 153 H 02/14/25 14:31: Activated Clotting Time 235 H 02/14/25 15:08: Activated Clotting Time 235 H 02/14/25 15:46: Activated Clotting Time 240 H Physical Exam Const alert, oriented x3 and no apparent distress General Appearance: cooperative and comfortable HEENT normocephalic, hearing grossly normal bilaterally, external ears normal and external nose normal Eyes General Eye: normal appearance of both eyes Neck Neck Narrative: R CEA incision site with skin glue intact, no dehiscence. Mild swelling, soft to palpation. Serosanguineous output in the ESTUARDO drain. Resp normal respiratory effort and no use of accessory muscles Effort and Inspection: able to speak in complete sentences; Negative for labored, grunting or stridor Cardio regular rate and regular rhythm Extremity normal to inspection, no clubbing, cyanosis or edema and no calf tenderness General Extremity: normal exam except as noted Skin no rashes or lesions noted Neuro oriented x3, CN's II-XII intact bilaterally, moves all extremities and no focal motor deficits Psych mental status grossly normal Appearance: grossly normal Attitude: calm and engaged Activity / Motor Behavior: appropriate eye contact Speech: normal speech Assessment & Plan Assessment/Plan (1) Stenosis of right carotid artery: PLAN: She is POD#1 from R CEA. Incision site is satisfactory in appearance, no signs/symptoms of hematoma. ESTUARDO drain removed this morning, she tolerated it well. She has been normotensive. Will progress to normal diet as tolerated. Plan to ambulate with nursing this morning. Anticipate d/c later today. Charges/Coding Procedures Integumentary 111xxx-113xx: [id number] Global Visit
--- NOTE | 2025-02-15 10:07 | PCM.DC.SUM ---
Providers Date of Admission: 02/14/25 Primary Care Physician: Dr. Carrie Vincent MD Reason For Visit: Right Carotid Endarterectomy Diagnosis Discharge Diagnosis (1) Stenosis of right carotid artery: Status: Chronic Code(s): I65.21 - Occlusion and stenosis of right carotid artery Plan: She is POD#1 from R CEA. Incision site is satisfactory in appearance, no signs/symptoms of hematoma. ESTUARDO drain removed this morning, she tolerated it well. She has been normotensive. Will progress to normal diet as tolerated. Plan to ambulate with nursing this morning. Anticipate d/c later today. Medications at Discharge Home Medications aspirin 81 mg chewable tablet 81 mg PO QHS HEART HEALTH 05/24/14 hydrochlorothiazide 12.5 mg capsule 12.5 mg PO DAILY HTN 05/24/14 oxybutynin chloride 5 mg tablet,extended release 24 hr 5 mg PO PRN PRN Bladder Spasm 05/24/14 esomeprazole magnesium 20 mg capsule,delayed release (Nexium) 20 mg PO DAILY GERD 02/03/18 glucosamine-chondroitin 250 mg-200 mg tablet (Osteo Bi-Flex) 1 tab PO DAILY SUPPLEMENT 07/03/20 acetaminophen 300 mg-codeine 30 mg tablet 0.5 tab PO PRN PRN Pain 03/27/22 amlodipine 5 mg tablet 5 mg PO QHS HTN #90 tabs 12/08/23 simvastatin 20 mg tablet 20 mg PO QPM HLD #90 tabs 12/08/24 cyanocobalamin (vitamin B-12) 1,000 mcg tablet (Vitamin B-12) 1,000 mcg PO DAILY SUPPLEMENT 01/19/25 polyethylene glycol 3350 17 gram oral powder packet (Miralax) 17 g PO DAILY CONSTIPATION 01/19/25 vit C 250 mg-vit E 90 mg-zinc 40 mg-copper 1 [id number]-gnmplc-aplopi capsule (PreserVision AREDS-2) 1 tab PO BID SUPPLEMENT 01/19/25 acetaminophen 300 mg-codeine 30 mg tablet 0.5 tab PO Q6H PRN PRN Pain Score 1-10 3 days #12 tabs 02/15/25 Hospital Course Summary of Care Provided Hospital Course: Maryuri Martniez is a 79 y/o female who underwent R CEA on 02/14/25. She tolerated the procedure well. Postoperatively, she was routinely admitted to the ICU for ongoing hemodynamic and neurologic monitoring. She has remained hemodynamically and neurologically stable throughout her admission. On POD#1 ESTUARDO drain was removed. She denies any R-sided headaches, new numbness/weakness/paresthesias, vision changes, dysarthria. She tolerated normal diet. She ambulated well. She is discharged home with planned outpatient follow-up 03/02/25. Physical Exam Const alert, oriented x3 and no apparent distress General Appearance: cooperative and comfortable HEENT normocephalic, hearing grossly normal bilaterally, external ears normal and external nose normal Eyes General Eye: normal appearance of both eyes Neck Neck Narrative: R CEA incision site with skin glue intact, no dehiscence. Mild swelling, soft to palpation. Serosanguineous output in the ESTUARDO drain. Resp normal respiratory effort and no use of accessory muscles Effort and Inspection: able to speak in complete sentences; Negative for labored, grunting or stridor Cardio regular rate and regular rhythm Extremity normal to inspection, no clubbing, cyanosis or edema and no calf tenderness General Extremity: normal exam except as noted Skin no rashes or lesions noted Neuro oriented x3, CN's II-XII intact bilaterally, moves all extremities and no focal motor deficits Psych mental status grossly normal Appearance: grossly normal Attitude: calm and engaged Activity / Motor Behavior: appropriate eye contact Speech: normal speech Weight / BMI Weight Weight: 146 lb 6 oz Body Mass Index (BMI) 25.9 ABG / Lab / Microbiology Data 02/08/25 12:14 02/08/25 12:14 Laboratory: Laboratory Results - last 24 hr 02/14/25 13:27: Activated Clotting Time 153 H 02/14/25 14:31: Activated Clotting Time 235 H 02/14/25 15:08: Activated Clotting Time 235 H 02/14/25 15:46: Activated Clotting Time 240 H D/C Instructions May shower in (days): 1 Weight Bearing Status: Weight bearing as tolerated Lifting Restricted to (Lbs): 20 Lifting Restrictions: Do not lift greater than 20 pounds for 3 weeks. Call your doctor if your incision/area has: Sudden Increased Bleeding, Increased Pain/ Swelling and Foul Smelling Discharge Call your doctor if you observe: Fever of 101 or Higher DC O2, CPAP, BIPAP Needs Home O2 Discharge instructions: No Additional Instructions: INCISION CARE: You have a small bandage on your neck over the site from which the surgical drain was removed. You may remove this bandage tomorrow. As long as there is no residual drainage, you may leave this open to air. If you do notice some continued drainage, you may re-cover with a Band-Aid. Your neck incision site is covered with skin glue which will continue to protect it. The skin glue will peel/flake off on its own over the next few weeks. Please do not pick at it. You may shower tomorrow. It is okay for soap and water to rinse over the incision site, pat to dry. Do not submerge the incision site in water such as to take a bath or go swimming etc. for 3 weeks. MEDICATION INSTRUCTIONS You have been prescribed Tylenol (acetaminophen) with codeine 300-30mg tablets as needed by mouth every 6 hours for pain. You should not drive or operate other heavy machinery while taking this medication. You should not take it in combination with any other prescription pain medications. ACTIVITY INSTRUCTIONS Do not lift greater than 20 pounds for 3 weeks. Otherwise, please continue with activity as tolerated. FOLLOW-UP INSTRUCTIONS You are scheduled for follow-up in the office on 03/02/2025. If you need to change this appointment or have any other questions/concerns, please call the office at [phone]. Please Follow Up With: Anny Barnard PA When: 03/02/25 Meaningful Use Info Meaningful Use Meaningful Use Diagnoses (Choose all that apply): None applicable Discharge Plan Admission Admit Date/Time: 02/14/25 09:22 Primary Reason for Your Visit: R CEA Attending Provider: Doug Rodriguez Primary Care Provider: Carrie Vincent Instructions Additional Instructions / Restrictions: INCISION CARE: You have a small bandage on your neck over the site from which the surgical drain was removed. You may remove this bandage tomorrow. As long as there is no residual drainage, you may leave this open to air. If you do notice some continued drainage, you may re-cover with a Band-Aid. Your neck incision site is covered with skin glue which will continue to protect it. The skin glue will peel/flake off on its own over the next few weeks. Please do not pick at it. You may shower tomorrow. It is okay for soap and water to rinse over the incision site, pat to dry. Do not submerge the incision site in water such as to take a bath or go swimming etc. for 3 weeks. MEDICATION INSTRUCTIONS You have been prescribed Tylenol (acetaminophen) with codeine 300-30mg tablets as needed by mouth every 6 hours for pain. You should not drive or operate other heavy machinery while taking this medication. You should not take it in combination with any other prescription pain medications. ACTIVITY INSTRUCTIONS Do not lift greater than 20 pounds for 3 weeks. Otherwise, please continue with activity as tolerated. FOLLOW-UP INSTRUCTIONS You are scheduled for follow-up in the office on 03/02/2025. If you need to change this appointment or have any other questions/concerns, please call the office at [phone]. Discharge Orders/Prescriptions Prescriptions: New acetaminophen-codeine 300-30 mg Tablet 0.5 tab PO Q6H PRN PRN (Reason: Pain Score 1-10) 3 Days Qty: 12 0RF Continued esomeprazole magnesium [Nexium] 20 mg capsule,delayed release(DR/EC) 20 mg PO DAILY glucosamine-chondroitin [Osteo Bi-Flex] 250-200 mg tablet 1 tab PO DAILY hydrochlorothiazide 12.5 MG capsule 12.5 mg PO DAILY Patient Comments: BLOOD PRESSURE oxybutynin chloride 5 MG tablet 5 mg PO PRN PRN (Reason: Bladder Spasm) Patient Comments: OVERACTIVE BLADDER aspirin 81 MG tablet,chewable 81 mg PO QHS Patient Comments: HEART HEALTH cyanocobalamin (vitamin B-12) [Vitamin B-12] 1,000 mcg tablet 1,000 mcg PO DAILY PreserVision AREDS-2 250-90-40-1 mg capsule 1 tab PO BID polyethylene glycol 3350 [Miralax] 17 gram powder in packet 17 g PO DAILY amlodipine 5 mg tablet 5 mg PO QHS Qty: 90 4RF simvastatin 20 mg tablet 20 mg PO QPM Qty: 90 3RF No Action acetaminophen-codeine 300-30 mg tablet 0.5 tab PO PRN PRN (Reason: Pain) Patient Comments: Other Ambulatory Orders: 12 Lead EKG (Routine) Location: None Selected Ordered By: Dr. Justus Mcgee Referrals / Follow Up: Carrie Vincent MD [Primary Care Provider, Internal Medicine] Disposition Disposition (needs filled in before D/C Order can be placed): Home, Self Care Charges/Coding Procedures Integumentary 111xxx-113xx: [id number] Global Visit
--- NOTE | 2025-02-15 11:05 | CASEMGMT ---
ELIZABETH CA Assessment Face to Face with patient for initial transition planning/care coordination assessment. ELIZABETH CA introduced self and role at [facility], pt voices understanding. Pt is A&Ox4 and is resting comfortably in bed and is calm. Care providers, pharmacy, and demographics verified. Admitting dx: Right Carotid Endarterectomy LACE Strata: 2 PCP: Carrie Vincent Specialists: Michael (Vascular), Ji (Urology), Charles ARNDT (Podiatry) Preferred Pharmacy: [facility] Insurance: RR MCR, MMO Prescription Benefit: Yes LNOK: Fam (XH) Living Arrangements: Pt lives with her XH in a single story home with 3 steps to enter ADLs/IADLs: Indep, 6-Click score is 24 Transportation: Self, XH DME: Access to a BP Machine, pulse ox, cane, and FWW HHC/SNF: Denies hx of or needs Pt?s goal: Home Plan: Home with pt's XH. No additional needs identified. Pt plans to follow up with vascular as an OP. Pt reports that she was able to ambulate well with nursing today and has tolerated her diet so far. Per ICU rounds, anticipate DC today. Pt states that she feels safe returning home today with her XH and denies the need for any additional resources or therapy. Pt denies further questions or concerns at this time. Cheryle Hartman RN, CM
== END 2025-02-15 13:25 | disposition home or self-care (01) | DRG 39 ==
PROVIDERS: Admitting Provider Surgery Trauma Surgery; PCP Internal Medicine; Referring Provider Surgery Trauma Surgery; Visit Provider Surgery Trauma Surgery
PROC: 03CM0ZZ Extirpation of Matter from Right External Carotid Artery, Open Approach (ICD-10-PCS; CPT 35301; principal; 2025-02-14 11:10)
DX: I65.21 Occlusion and stenosis of right carotid artery (principal); E78.5 Hyperlipidemia, unspecified; I10 Essential (primary) hypertension; K21.9 Gastro-esophageal reflux disease without esophagitis; I25.10 Atherosclerotic heart disease of native coronary artery without angina pectoris; Z85.51 Personal history of malignant neoplasm of bladder; Z79.82 Long term (current) use of aspirin; Z79.899 Other long term (current) drug therapy; Z87.891 Personal history of nicotine dependence
CPT/HCPCS: 36415; 80048; 85027; 85347; 86850; 86900; 86901; 88304; 88311; 93005; 94668; 94762; 99252; A4648; A4216; G0463; J2405